=== PATIENT | male | born 1950 | race Caucasian/White ===

== ENCOUNTER → 2018-01-29 09:56 | Outpatient (CLI) | payer MEDICARE, OTHER, SELFPAY ==
--- NOTE | 2018-01-29 | DI.US.S_ITS ---
PROCEDURE: US PERIPH VENOUS LOW EXTREM LT INDICATIONS: EDEMA TECHNIQUE: Real-time imaging, as well as color and pulse Doppler interrogation, were performed of the lower extremity deep veins from the inguinal ligament to the popliteal fossa. COMPARISON: None. FINDINGS: Focal deep venous thrombosis can be seen involving the left popliteal vein, which is incompletely occlusive. No additional findings of deep venous thrombosis can be seen more proximally. IMPRESSION: Nonocclusive deep venous thrombosis involving the left popliteal vein. Note: Concordant preliminary findings given by the software program manager upon the completion of the examination to Tea Holland at 11:20 AM [place] time on January 29, 2018. Dictated by: Lasha Mckeon M.D. on 01/29/2018 at 10:33 Approved by: Lasha Mckeon M.D. on 01/29/2018 at 10:34
== END ==
PROVIDERS: Family Provider Physician Assistant; PCP Physician Assistant; Visit Provider Nurse Practitioner Gerontology
DX: I82.432 Acute embolism and thrombosis of left popliteal vein (principal)
CPT/HCPCS: 93971

== ENCOUNTER → 2018-04-18 12:28 | Outpatient (CLI) | payer MEDICARE, OTHER, SELFPAY ==
--- NOTE | 2018-04-18 12:31 | DI.RAD.S_ITS ---
PROCEDURE: FL BARIUM ENEMA INDICATIONS: history of colon cancer s/p LAR with ileostomy COMPARISON: [facility], CT, ABDOMEN/PELVIS WITH CONTRAST, 03/26/2017, 13:27. [facility], US, US PERIPH VENOUS LOW EXTREM LT, 01/29/2018, 11:19. [facility], CR, CHEST 1 VIEW, 07/24/2017, 15:43. [facility], RF, FLUORO PROCEDURE UP TO 60MINS, 05/29/2017, 11:31. [facility], CT, DRAIN RETRO OR PERITONEAL CT, 05/11/2017, 9:28. [facility], CT, ABDOMEN/PELVIS WITH CONTRAST, 05/07/2017, 8:45. [facility], RF, SINOGRAM (SINUS TRACT STUDY), 07/18/2017, 9:44. FINDINGS: KUB: Preprocedural oceanic sciences professor film demonstrates a normal bowel gas pattern. No suspicious abdominal calcifications. Visualized solid organ contours appear normal in size. No suspicious bony lesions. There are discogenic changes in bilateral hip degeneration. Colon: There is adequate opacification of the entire colon. In the region of the splenic flexure, the colon appears patent and there is free passage of Gastrografin. No evidence of perforation Surgical staple line and staple projected left upper quadrant. No strictures or extrinsic mass effects are identified. No colonic fistulae or perforations. Colon caliber appears normal. Few scattered colonic diverticula IMPRESSION: Patent colonic anastomosis Dictated by: Pool Olivier M.D. on 04/18/2018 at 13:36 Approved by: Pool Olivier M.D. on 04/18/2018 at 13:48
== END ==
PROVIDERS: PCP Physician Assistant; Visit Provider Surgery
DX: Z85.038 Personal history of other malignant neoplasm of large intestine (principal); C18.9 Malignant neoplasm of colon, unspecified
CPT/HCPCS: 74270

== ENCOUNTER 2018-04-23 06:22 | Day surgery (SDC) | payer MEDICARE, OTHER, SELFPAY ==
[2018-04-23 07:07] VITALS: BP 151/79; PULSE 87; RESP 16; TEMP 36.6; O2SAT 100; BMI 27.9
[2018-04-23] MEDS: SODIUM CHLORIDE 0.9% 1,000 ML 200 ML IV (07:38)
--- NOTE | 2018-04-23 07:45 | PM.PREOP ---
Pre-operative Note Interval Note Pre-op Check: Yes History & Physical Reviewed by Physician and Yes Exam Performed Changes: No H&P completed within 30 days and has changed as indicated here:: Patient seen and examined in the preoperative area today. History physical examination documented and on the chart from April 17, 2018 has not changed. Proceed with colonoscopy today as planned.
[2018-04-23 08:10] VITALS: BP 112/65; PULSE 78; RESP 14; TEMP 37.2; O2SAT 95
--- NOTE | 2018-04-23 08:11 | PM.OP.1 ---
Operative Date/Time/Diagnoses Date of procedure: 04/23/18 Time of procedure: 08:11 Pre-op diagnosis: Personal history of colon cancer Post-op diagnosis: same Procedure & Clinicians Procedure: Colonoscopy Same procedure as scheduled: Yes Indications: 67-year-old male with personal history of colon cancer status post resection approximately 1 year ago now completing chemotherapy. He has a diverting loop ileostomy at this time. Following completion of his therapy he was recommended undergo surveillance endoscopy prior to potential ileostomy reversal. Because of his significant comorbid medical conditions including diabetes, DVT, PE, anticoagulation therapy, and recent chemotherapy with neuropathy and opioid requirements he was recommended to undergo endoscopy with general anesthesia. Surgeon: Clint Shabazz Click Yes if Unassisted: Yes Anesthesia Type: General Operative Notes Findings: 1. Mildly inflamed rectum due to recent barium enema and enema preparation for today's procedure 2. Widely patent anastomosis without evidence of recurrent disease 3. Normal colon and rectum within the limits of enema preparation. Patient cannot undergo formal bowel preparation due to diverting ileostomy. Specimen(s): none sent Implants & Drains: None Estimated Blood Loss (mL): 2 Blood products transfused: none Procedure in detail: After obtaining informed consent the patient was brought to the operating room and left supine on the gurney. He was then positioned the left lateral decubitus and anesthesia was induced. Digital rectal examination revealed no masses or abnormalities. Colonoscope was inserted into the rectum and the bowel was insufflated with air. Under direct visualization of the colonic lumen the scope was advanced to the cecum. Copious irrigation was employed but there was moderate thick opaque stool coating the lumen and mucosa thereby limiting visualization in the right colon. However the anastomosis and left colon were clearly visualized and findings are as above. Scope was slowly withdrawn and the bowel was meticulously and circumferentially examined. There was no evidence of any residual or recurrent disease. Scope was withdrawn and the procedure terminated. Patient taken recovery in stable condition. Complications: none Condition: stable Disposition: PACU Plan for aftercare: 1. Discharge home 2. Follow up in surgery clinic next week for preoperative preparation regarding ileostomy reversal.
[2018-04-23 08:15] VITALS: BP 120/77; PULSE 84; RESP 12; TEMP 37.2; O2SAT 96
[2018-04-23 08:18] VITALS: BP 123/66; PULSE 77; RESP 14; TEMP 37.2; O2SAT 98
[2018-04-23 09:00] VITALS: BP 115/62; PULSE 69; RESP 12; TEMP 36.8; O2SAT 99
== END 2018-04-23 08:43 | disposition home or self-care (01) ==
PROVIDERS: PCP Physician Assistant; Visit Provider Surgery
PROC: 0DJD8ZZ Inspection of Lower Intestinal Tract, Via Natural or Artificial Opening Endoscopic (ICD-10-PCS; CPT 45378; principal; 2018-04-23 07:45)
DX: Z85.038 Personal history of other malignant neoplasm of large intestine (principal); Z93.2 Ileostomy status; E11.9 Type 2 diabetes mellitus without complications; G62.9 Polyneuropathy, unspecified; Z79.01 Long term (current) use of anticoagulants; Z86.718 Personal history of other venous thrombosis and embolism; Z86.711 Personal history of pulmonary embolism; Z79.4 Long term (current) use of insulin
CPT/HCPCS: G0105; J2704; J3010

== ENCOUNTER 2018-05-14 06:16 | Inpatient (IN) | payer MEDICARE, OTHER, SELFPAY ==
[2018-05-08 09:44] VITALS: BMI 28.5
[2018-05-14] VITALS (13 sets, daily range): BP systolic 131–154; BP diastolic 54–74; PULSE 70–86; RESP 10–20; TEMP 36.5–36.9; O2SAT 97–99; BMI 28.5
--- NOTE | 2018-05-14 07:10 | PC.NURSE ---
Day shift: Pt not on AC unit at this time.
[2018-05-14] MEDS: LACTATED RINGERS 1,000 ML 21 ML IV (07:31)
--- NOTE | 2018-05-14 07:37 | PM.PREOP ---
Pre-operative Note Interval Note Pre-op Check: Yes History & Physical Reviewed by Physician and Yes Exam Performed Changes: No H&P completed within 30 days and has changed as indicated here:: Patient seen and examined today in pre-op area. No changes to H&P documented on chart on 04/29/2018. Off Eliquis now. Proceed with ileostomy reversal today as planned.
[2018-05-14] MEDS: CEFOTETAN 2 GM/50 ML PIGGYBACK IV ×2 (07:50→20:42)
--- NOTE | 2018-05-14 08:41 | SUR.OPER ---
Supine on padded OR bed, head on pillow, arms secured on padded arm boards at <90 degrees abduction, legs uncrossed, safety belt at thigh, tape over blanket over lower legs.
[2018-05-14] MEDS: LACTATED RINGERS 1,000 ML 42 ML IV (10:49)
--- NOTE | 2018-05-14 11:24 | P.OP_ITS ---
Operative Date/Time/Diagnoses Date of procedure: 05/14/18 Time of procedure: 11:15 Pre-op diagnosis: Personal history of colon cancer status post colectomy with existing diverting loop ileostomy Post-op diagnosis: same Procedure & Clinicians Procedure: Laparotomy with partial small-bowel resection and primary small bowel anastomosis with primary closure of abdominal wall hernia Same procedure as scheduled: Yes Indications: 68-year-old male approximately 14 months status post low anterior resection with diverting loop ileostomy for colon cancer who presents now for episcopalian of bowel continuity. He has completed all adjuvant therapy and has no evidence of disease. The colonic anastomosis is widely patent on recent studies. He therefore was recommended to undergo reversal of his ileostomy. Surgeon: Clint Shabazz Click Yes if Unassisted: Yes Anesthesia Type: General Operative Notes Findings: 1. Peristomal hernia sac containing otherwise normal distal ileum 2. Patent loop ileostomy with normal maturation 3. Widely patent small-bowel anastomosis at the conclusion of the case Closure Type: primary Specimen(s): none sent Implants & Drains: None Applied: other (1 in gauze packing to incision) Estimated Blood Loss (mL): 50 Blood products transfused: none Procedure in detail: After obtaining informed consent the patient was brought to the operating room. Epidural catheter was placed per anesthesia. Please see their records for details. Patient was then placed supine on the table and general anesthesia was induced. SCOAP time out was performed per standard protocol. Existing loop ileostomy was closed proximally and distally with 0 Prolene suture. Abdomen was prepped and draped in usual sterile fashion. Incision was created at the mucocutaneous junction around the stoma with a 15 scalpel blade. Bovie was used to achieve hemostasis and carried the dissection to the subcutaneous tissue to the rectus fascia. Fascia was cleared of overlying tissue. Hernia sac was liberated. All adhesions were taken down sharply with Metzenbaum scissors. Great care was taken to avoid injury to the bowel. Bowel was then completely mobilized and exteriorized to the abdominal wall. Proximal and distal ileal loops were noted to be viable and healthy. The existing stoma was then excised with 2 applications of the JESUS 55 stapler proximally and distally. Mesentery was taken down between hemostats. Bowel was then discarded. Interrupted 2 0 silk ties were used to achieve hemostasis on the mesentery. Bowel loops were then brought into approximation along the anti mesenteric border taking great care not to twist the bowel. Anti mesenteric proximal and distal bowel loops were then secured to each other using seromuscular interrupted 3 0 silk suture. Corner of the staple line proximally and distally was then removed with curved Cordero's after applying bowel clamps proximally and distally. JESUS 55 stapler was then placed into the proximal distal bowel loops and approximated. Great care was taken to avoid injury to the mesentery. Stapler was fired and hemostasis was noted along the staple line. However, there was excellent mucosal bleeding and the bowel was quite pink and viable. The remaining defect was then closed in a 2 layer fashion using an inner layer of 3 0 Vicryl running [place] sutures tied in the midline. Outer layer of interrupted 3 0 silk seromuscular Lembert sutures was then applied to complete the anastomosis. All remaining staple lines were then oversewn in a similar fashion with interrupted 3 0 silk sutures as well. The crotch of the anastomotic staple line was reinforced with 3 0 silk suture as well. Mesenteric defect was closed with interrupted 3 0 silk suture. Bowel clamps removed. There was excellent patency of the anastomosis with good viability. Gas and fluid was easily milked through the anastomosis. There was no evidence of leakage. Gloves and instruments were then changed and the bowel was placed back into the abdomen. Hernia sac was excised sharply with the Bovie and discarded. Posterior and anterior fascial sheath were then identified. Posterior layer was closed with 2 individual interrupted 1 Prolene suture tied in the midline. Wound was irrigated with copious amounts of sterile saline solution and hemostasis verified. Anterior sheath was closed in a similar fashion with 2 individual interrupted 1 Prolene sutures tied in the midline. Subcutaneous tissue was again irrigated and noted to be hemostatic. Skin was loosely approximated with interrupted vertical mattress 2 0 nylon sutures. 1 in gauze packing was placed between the sutures to allow for adequate drainage. Sterile dressing was applied and anesthesia reversed in the operating room. He was extubated and taken recovery stable condition. Complications: none Condition: stable Disposition: PACU Plan for aftercare: 1. Admit to ICU per hospital protocol for epidural catheter pain management
--- NOTE | 2018-05-14 11:34 | SUR.PHASEI ---
CBG at 1106 was 128.
[2018-05-14] MEDS: LACTATED RINGERS 1,000 ML 84 ML IV (12:20)
[2018-05-14] MEDS: FENT 2MCG/BUPIV 0.125% EPI 2 MCG/100 ML PLAST..BAG 6 MCG EPIDURAL (12:24)
[2018-05-14] MEDS: HYDROMORPHONE 0.5 MG INJ IV ×2 (12:55→13:15)
[2018-05-14] MEDS: OXYCODONE/ACETAMINOPHEN 5/325 TABLET 1 TAB PO (13:33)
--- NOTE | 2018-05-14 15:21 | PC.NURSE ---
Day Shift Note Arrived to 104 at 1145 from PACU. Alert and oriented x3, oxygen sats 99% on RA. Dressing to right lower abdomen D/I with scant serosanguinous drainage at bottom. Tolerating clears without nausea. Epidural infusing at 6 ml/hr on arrival, site to mid-back C/D/I. Reported cramping pain 4/10 increasing to abdomen about 1230 - Dr. Sanchez notified and Dilaudid administered and epidural rate increased to 10 ml/hr. Patient reported minimal improvement but pain remained 3/10. Dr. Sanchez in room at 1400 and bolused with 12% Marcain. Pt tolerated well, BP stable and now denies pain. White in place and draining clear yellow urine. Belongings in room, glasses at bedside and hearing aids in. Oriented to room and to call light/bed/tv controls, call light within reach.
[2018-05-14] MEDS: FENT 2MCG/BUPIV 0.125% EPI 2 MCG/100 ML PLAST..BAG 10 MCG EPIDURAL (20:24)
[2018-05-14] MEDS: ENOXAPARIN 40 MG/0.4 ML SYRINGE SUBCUT (20:56)
[2018-05-14] MEDS: [UNRECOGNIZED DRUG - OTHER] EPIDURAL (20:57)
[2018-05-14] MEDS: FENT EPIDURAL (20:57)
[2018-05-14] MEDS: EPI EPIDURAL (20:57)
--- NOTE | 2018-05-14 21:49 | PC.NURSE ---
Addendum entered by Jennifer Montaño R.N. 05/14/18 21:59: BG at HS 72, patient A/Ox4, asymptomatic. Insulin for dinner and HS held. Eating Popsicle, recheck 75. Giving pt clear liquid snacks as requested. Original Note: Pt reported mild, tolerable pain of 2/10 in abdomen. Remains on fent/bupiv epidural at 10mls/hr. Tolerating clear liquid diet, no nausea. Received ordered Lovenox 40mg at approximately 2100, earliest epidural can be removed would be 0900 tomorrow. RA [facility]. A/Ox4.
[2018-05-15] VITALS (10 sets, daily range): BP systolic 91–137; BP diastolic 50–70; PULSE 83–100; RESP 12–18; TEMP 36.8–38.6; O2SAT 94–98
[2018-05-15] MEDS: LACTATED RINGERS 1,000 ML 84 ML IV ×2 (00:26→23:24)
[2018-05-15] MEDS: EPI EPIDURAL ×2 (05:19→15:04)
[2018-05-15] MEDS: [UNRECOGNIZED DRUG - OTHER] EPIDURAL ×2 (05:19→15:04)
[2018-05-15] MEDS: FENT EPIDURAL ×2 (05:19→15:04)
[2018-05-15] MEDS: ACETAMINOPHEN 325 MG TABLET 650 MG PO ×2 (05:20→19:59)
--- NOTE | 2018-05-15 06:25 | PC.NURSE ---
NOC Shift: POD #[address] Shabazz. Pt AOx3, appropriate and very [place]. Right lower ABD dsg CDI. BS present, pt taking clear liquieds. Denies pain w/fentanyl/Bup epidural at 10ml/hr. Affective pain control. VSS, SR/ST off tele. Spiking low grade temps through shift, cooling measures taken, tylenol po given and pt instructed to use IS, and CDB. Sao2 stable on room air. Needs encouragement to increase mobility today and pulmonary toilet.
[2018-05-15] MEDS: ONDANSETRON 4 MG/2 ML INJ IV (08:46)
--- NOTE | 2018-05-15 08:49 | PC.NURSE ---
Addendum entered by Pool Lewis R.N. 05/15/18 15:07: 1400- Pt ambulated several laps around nurses station. Assisted to sink and pt performed own oral care. Pt then stated he needed to sit on commode but was incontinent of stool prior to sitting down. Large amount of liquid brown stool with few pink streaks of mucouslike stool noted. Assisted pt with hygiene care and placed brief. Pt then ambulated back to bed with steady gait. Upon sitting down, pt stated he felt whoozy similar to earlier episode with nausea. Applied cool wash cloth to neck and provided emesis bag, although pt did not vomit. Assessed stable VS (see chart). Repositioned in bed and after a few minutes, pt denies symptoms. Call light in easy reach. Original Note: 0840- Pt placed call light on. Entered room and noted pt (sitting up in chair) to be pale, diaphoretic, and minimally responsive with rightward gaze. Mumbles with sternal rub. VS: HR 80 BP 116/60 RR 12 SPO2 96% on RA. CBG 114. Reclined pt back in chair. 0843 reassessed BP 154/92. Pt c/o nausea. Zofran given. Becoming more responsive. States that he was passing gas when he started to feel queasy and put call light on. Placed ice packs to axilae. Obtained EKG per RN protocol showing NSR. Remains up to chair and currently AO x3. Reports feeling better.
--- NOTE | 2018-05-15 11:28 | CM.DANOTE ---
Discharge Planning/Care Management Document 05/15/18 11:24 (Rec: 05/15/18 11:28 [id number]) Discharge Planning Assessment Assigned Infantry Weapons Officer LESLIE Rooney Contact Information Jcaob Forman (spouse) Advance Directives? Yes Advance Directives on File Yes History Provided By Patient Medical Record Prior Living Arrangements House Household Members spouse Independent with ADL's Yes Is patient alert and oriented? Yes Barriers to Discharge No Discharge Plan Home Transportation Arrangement Spouse to provide transportation Additional Comment Epidural in place Whiteboard Updated in Patient Room with Yes name and ext. # of Infantry Weapons Officer Comment RN reports patient continues with pain/epidural. Patient does have portacath, probably in relation to Cancer treatment(s). Review Status In Process Please Provide Date Initial DC 05/14/18 Assessment Was Performed Next Review Type Continued Stay Review Pre-Anesthesia Assessment Start: 05/08/18 09:44 Freq: Status: Complete Protocol: Document 05/08/18 09:44 CAB (Rec: 05/08/18 10:04 CAB [id number]) Pre-Anesthesia Assessment Patient Information Reviewed Via Chart Review Primary Care Provider Geneva Ramos Seen Specialist in Last 12 Months Yes Specialist Seen Merchandising Manager General surgeon Oncologist Primary Language Urdu Freight Agent Required No Height 180.34 cm Weight 92.986 kg Body Mass Index (BMI) 28.5 Hearing Ability Hard of Hearing Use of Hearing Aid Visual Assist Glasses Dentition Type Teeth, Natural Present Barriers to Learning None Hx Anesthesia Reactions No Hx Family Anesthesia Reaction No Hx Malignant Hyperthermia No Hx Blood Transfusions Yes: 2017 Hx Blood Transfusion Reaction No Anesthesia Review Requested No Measuring Machine Tender No alcohol intake current Alcohol Intake Frequency Other: Occasional Smoking Status Former smoker Tobacco type cigarettes how long ago did patient quit smoking Quit 1985 Substance Use Type marijuana History of Falling (Recent or History of No ) Patient is completely paralyzed or No completely immobile Is patient on oxygen? No Does patient have MARR/SOB No Hx Sleep Apnea No Currently Taking a Beta Deanna No Anti-Coagulant Therapy Yes: Eliquis-pt advised last dose 05/11/[address] Shabazz Has a Mangle Roller No Cardiac Testing No Hx Pacemaker/ICD No Pacemaker Rep Required? No Cardiac Clearance Received Not Applicable Urinary Catheter Present No Hx Urinary Self Catheterization No Diabetes Yes Presence of External or Internal Medical No Devices Comment Port-a-cath, ileostomy Marital Status Lives With spouse Does the Patient Have Assistance After Yes Surgery Patient Discharge Plan Description Return Home Who Can We Speak to About Patient's Care Family, friends Identifying Code for Release of Patient SHEREEN Information Health Care Proxy/Next of Kin Jacob () Health Care Proxy Emergency Contact Name Jacob () Emergency Contact Advance Directives? Yes Advance Directives on File Yes
[2018-05-15 12:46] LABS: Add Manual Diff / Slide Review NO; Basophils Percent Auto 0.5 % (0-2); Eosinophils Percent Auto 0.2 % (2-4); Hematocrit 32.7 % (41-53); Hemoglobin 11.3 g/dL (13.5-17.5); Lymphocytes Percent Auto 8.1 % (25-40); Mean Corpuscular HGB Conc 34.5 % (30-36); Mean Corpuscular Volume 95.6 fL (80-100); Monocytes Percent Auto 7.6 % (3-14); Neutrophils Absolute Auto 7800 /uL (3000-5900); Neutrophils Percent Auto 83.6 % (50-75); Platelet Count 134 X10^3/uL (150-400); Red Blood Cell Count 3.42 X10^6/uL (4.5-5.9); Red Cell Distribution Width 12.9 % (11.6-14.8); White Blood Cell Count 9.3 X10^3/uL (4.5-11.0)
[2018-05-15 12:58] LABS: BUN Creatinine Ratio 12.5 (6-22); Blood Urea Nitrogen 15 mg/dL (9-20); Calcium 8.3 mg/dL (8.4-10.2); Carbon Dioxide 27 mmol/L (22-32); Chloride 104 mmol/L (98-107); Estimated Glomerular Filt Rate > 60.0 mL/min (>60); Glucose 120 mg/dL (80-110); HEMOLYSIS < 15 (0-50); Potassium 4.4 mmol/L (3.4-5.1); Sodium 139 mmol/L (137-145)
--- NOTE | 2018-05-15 13:12 | P.PN_ITS ---
Subjective Date Patient Seen: 05/15/18 Time Patient Seen: 13:07 Interval history: Patient complained of some mild nausea but no vomiting within the last hour while he was sitting in a chair. He also became transiently unresponsive with systolic blood pressure of 91. No tachycardia. He had spiked a temperature of 101.5? at that time as well. He is now having some shaking chills but feeling better overall. He states to me currently that he has been having chills of this nature during and after chemotherapy recently. Denies significant abdominal pain or distention. He has been tolerating clear liquids by mouth without significant issue. No flatus or bowel movement. Denies chest pain or shortness of breath. Exam Vital Signs (past 8 hours): - 05/15/18 05:20 05/15/18 08:00 05/15/18 10:10 Temperature 100.2 F H 101.5 F H 98.2 F Pulse Rate 97 H Respiratory Rate 16 Blood Pressure 137/60 Pulse Oximetry 98 05/15/18 11:36 Temperature 98.2 F Pulse Rate 89 Respiratory Rate 12 Blood Pressure 91/50 L Pulse Oximetry 98 Oxygen Delivery Method Room Air Oxygen Flow Rate 0 Narrative Exam Narrative: Thin male sitting comfortably in bedside chair in no acute distress. However, he is under 1 or 2 blankets with some shivering at the time of my visit. Alert oriented x3. He overall is in good spirits. Temperature curve as above with fever of 101.5 earlier today. Current temperature 98.2?. No tachycardia. Adequate urine output Chest clear to auscultation Abdomen is soft and minimally distended. He is not tympanitic. Dressing is removed and the wound is clean, dry, and intact. Packing material remains intact as well. No purulent drainage. No erythema. No ecchymosis. He is appropriately tender to palpation and certainly without guarding or rebound. Objective Labs Result Diagrams: 05/15/18 12:27 05/15/18 12:27 Labs: Laboratory Results - last 24 hr 05/14/18 05/15/18 05/15/18 12:30 12:27 12:27 WBC 9.3 RBC 3.42 L Hgb 11.3 L Hct 32.7 L MCV 95.6 MCH 33.0 MCHC 34.5 RDW 12.9 Plt Count 134 L Neut % (Auto) 83.6 H Lymph % (Auto) 8.1 L [place] % (Auto) 7.6 Eos % (Auto) 0.2 L Baso % (Auto) 0.5 Neut # (Auto) 7800 H Sodium 139 Potassium 4.4 Chloride 104 Carbon Dioxide 27 BUN 15 Creatinine 1.20 Estimated GFR > 60.0 BUN/Creatinine Ratio 12.5 Glucose 120 H Calcium 8.3 L Nasal Screen MRSA (PCR) Negative for mrsa Assessment & Plan Plan: Assessment/Plan Narrative: 68-year-old male postoperative day 1 from ileostomy reversal now with fever and mild hypotension of unclear etiology. He has no evidence of hemorrhage in his hemoglobin is certainly adequate at 11.3. White blood cell count is normal with no shift. No evidence of sepsis or wound infection. I doubt anastomotic leak, and would be quite unusual to have manifestations of such only 24 hr after surgery. We will therefore continue his current care and await bowel function. Monitor closely. Continue epidural as this appears to be quite effective for pain control. Clear liquids only, and his blood sugar is well within acceptable ranges at this time. Ambulate at the bedside. Continue White catheter until epidural is removed. I discussed all the above with the patient in detail. Questions were answered to his satisfaction, and he voiced understanding. Orders were written. Quality VTE Deep Vein Thrombosis/Pulmonary Embolism Present on Admission: No
[2018-05-15] MEDS: INSULIN ASPART 100 UNIT/ML INSULN PEN SUBCUT (18:07)
[2018-05-15] MEDS: ENOXAPARIN 40 MG/0.4 ML SYRINGE SUBCUT (21:12)
[2018-05-16] VITALS (8 sets, daily range): BP systolic 130–171; BP diastolic 65–76; PULSE 77–90; RESP 16–20; TEMP 36.5–37.7; O2SAT 92–96
--- NOTE | 2018-05-16 00:39 | PC.NURSE ---
ned note pt denies pain. Abd with dulled sensation. Pt having flatus and liquid stool. Pt the continued fever despite aggressive incentive spirometer use, achieving 1750 ml. Tylenol given.
[2018-05-16] MEDS: OXYCODONE/ACETAMINOPHEN 5/325 TABLET 1 TAB PO ×5 (00:46→21:17)
[2018-05-16 05:12] LABS: Add Manual Diff / Slide Review NO; Basophils Percent Auto 0.4 % (0-2); Eosinophils Percent Auto 0.4 % (2-4); Hematocrit 29.5 % (41-53); Hemoglobin 10.3 g/dL (13.5-17.5); Lymphocytes Percent Auto 12.1 % (25-40); Mean Corpuscular HGB Conc 34.9 % (30-36); Mean Corpuscular Hemoglobin 33.2 PG (26-34); Mean Corpuscular Volume 94.9 fL (80-100); Monocytes Percent Auto 8.5 % (3-14); Neutrophils Absolute Auto 5900 /uL (3000-5900); Neutrophils Percent Auto 78.6 % (50-75); Platelet Count 108 X10^3/uL (150-400); Red Blood Cell Count 3.11 X10^6/uL (4.5-5.9); Red Cell Distribution Width 12.9 % (11.6-14.8); White Blood Cell Count 7.6 X10^3/uL (4.5-11.0)
[2018-05-16 05:16] LABS: BUN Creatinine Ratio 12.7 (6-22); Blood Urea Nitrogen 14 mg/dL (9-20); Calcium 8.2 mg/dL (8.4-10.2); Carbon Dioxide 26 mmol/L (22-32); Chloride 104 mmol/L (98-107); Estimated Glomerular Filt Rate > 60.0 mL/min (>60); Glucose 158 mg/dL (80-110); HEMOLYSIS < 15 (0-50); Potassium 3.8 mmol/L (3.4-5.1); Sodium 139 mmol/L (137-145)
[2018-05-16] MEDS: INSULIN ASPART 100 UNIT/ML INSULN PEN SUBCUT ×2 (09:08→12:00)
[2018-05-16] MEDS: FENT EPIDURAL (09:55)
[2018-05-16] MEDS: EPI EPIDURAL (09:55)
[2018-05-16] MEDS: [UNRECOGNIZED DRUG - OTHER] EPIDURAL (09:55)
[2018-05-16] MEDS: LACTATED RINGERS 1,000 ML 84 ML IV (10:55)
--- NOTE | 2018-05-16 11:37 | PC.NURSE ---
pt dangled at edge of bed and noted to have opsite dressing peeled above epidural insertion site- removed dressing and epidural catheter at this time- intact catheter tip noted- pt sitting up inchair working on lap top and dressing will need to be changed prior to going back to bed as it is moist with ser0-sang drainage- Dr. Shabazz here early this am and removed some wound packing and dressing changed at that time-percocet holding pt well for pain control at this time
--- NOTE | 2018-05-16 17:05 | P.PN_ITS ---
Subjective Date Patient Seen: 05/16/18 Time Patient Seen: 08:02 Interval history: Denies any further chills. Continues to have small low-grade temperature last night. No chest pain or shortness of breath. Pain otherwise in the abdomen is well controlled. He is passing flatus and a small amount of liquid stool this morning. 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 Exam Vital Signs (past 8 hours): - 05/16/18 12:17 Temperature 98.2 F Pulse Rate 90 Respiratory Rate 20 Blood Pressure 131/76 Pulse Oximetry 96 Oxygen Delivery Method Room Air Oxygen Flow Rate 0 Narrative Exam Narrative: Well-nourished well-developed male sitting comfortably in bed in no acute distress. Alert oriented x3. Sclera nonicteric Chest clear to auscultation bilaterally with regular rate and rhythm Abdomen soft and minimally distended. He is not tympanitic. Appropriately tender to palpation without guarding or rebound. Wound is clean, dry, and intact. I advanced his packing today. He tolerated this well. No erythema or ecchymosis. No purulent drainage. Extremities show no clubbing or cyanosis Objective Labs Result Diagrams: 05/16/18 04:44 05/16/18 04:44 Labs: Laboratory Results - last 24 hr 05/16/18 05/16/18 04:44 04:44 WBC 7.6 RBC 3.11 L Hgb 10.3 L Hct 29.5 L MCV 94.9 MCH 33.2 MCHC 34.9 RDW 12.9 Plt Count 108 L Neut % (Auto) 78.6 H Lymph % (Auto) 12.1 L [place] % (Auto) 8.5 Eos % (Auto) 0.4 L Baso % (Auto) 0.4 Neut # (Auto) 5900 Sodium 139 Potassium 3.8 Chloride 104 Carbon Dioxide 26 BUN 14 Creatinine 1.10 Estimated GFR > 60.0 BUN/Creatinine Ratio 12.7 Glucose 158 H Calcium 8.2 L Assessment & Plan Plan: Assessment/Plan Narrative: 68-year-old male postoperative day 2 from ileostomy reversal who is doing well. 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 I see no evidence of infection, sepsis, or other fever etiology. I have discussed his case with the anesthesiology service and we will discontinue his epidural catheter today. White catheter may be removed thereafter. Advanced to regular diet with diabetic carbohydrate restrictions. Continue to cover his glucose with sliding scale insulin. If he tolerates a diet and continues to have bowel function we will restart all of his usual home medications including anticoagulation. Transfer to floor status. Ambulate as much as possible. All questions were answered to his satisfaction, and he voiced understanding. Orders were written. Quality VTE Deep Vein Thrombosis/Pulmonary Embolism Present on Admission: No
--- NOTE | 2018-05-16 17:39 | PC.NURSE ---
Pt transferred to acute care unit. White removed. VSS. Dressing to R lower quadrant CDI. Report called to Zoraida FOLEY.
--- NOTE | 2018-05-16 18:14 | PC.NURSE ---
patient arrived up to floor acute care by 1800, administered WATCH TRAIN INSPECTOR as ordered and instructed patient on its use. Patient verbalizes understanding not to get oob without assistance. Pain is 7/10 at this time, will reassess when appropriate. Dressing to RLQ is c/d/i with very minor amount of serous drainage. Patient demonstrates ability to transfer with assistance from wheelchair to bed. urinal placed at bedside, call light in reach, BA active. will continue to monitor.
[2018-05-16] MEDS: HYDROMORPHONE PCA 6 MG/30 ML PCA.VIAL IV (21:20)
[2018-05-16] MEDS: ENOXAPARIN 40 MG/0.4 ML SYRINGE SUBCUT (21:33)
[2018-05-17] VITALS (7 sets, daily range): BP systolic 139–157; BP diastolic 73–84; PULSE 78–84; RESP 15–18; TEMP 36.6–37; O2SAT 92–97
[2018-05-17] MEDS: LACTATED RINGERS 1,000 ML 42 ML IV (02:31)
[2018-05-17] MEDS: HYDROMORPHONE PCA 6 MG/30 ML PCA.VIAL IV ×3 (05:25→21:13)
--- NOTE | 2018-05-17 08:39 | CM.DPC ---
DCP Cont: Per MD, pt having some expected bowel control issues and some fever but no infection as of yet and changed to floor status on acute care and will begin advancing pt's diet to see how he tolerates and encouraging ambulation around the hallways. Plan: SW to follow closely to determine if pt tolerates advancing diet and ambulation towards confirming if pt will be safe for d/c home with spouse when medically stable. LESLIE Garcia
[2018-05-17] MEDS: INSULIN ASPART 100 UNIT/ML INSULN PEN SUBCUT (12:41)
--- NOTE | 2018-05-17 15:34 | PC.NURSE ---
Day Shift- Pt A&OX4, MONOTYPE SETTER effective pain management, rates 3-4/10 pain to RLQ abd. Wants to attempt to get po prn pain meds, awaiting surgical rounding for today. Tolerating diet, denies nausea. OOB X2 sitting up in recliner chair and ambulated in halls X2 in AM and afternoon with steady gait and tolerating well. Ambulation around north and main nursing stations. Passing flatus and belching, no BM today.
[2018-05-17] MEDS: AMPICILLIN/SULBACTAM 3 GM 3 GM in SODIUM CHLORIDE 0.9% 100 ML IV ×2 (18:13→23:37)
--- NOTE | 2018-05-17 19:37 | PM.PNPO.1 ---
Subjective Date Patient Seen: 05/17/18 Time Patient Seen: 17:37 Interval history: Patient is post ileostomy closure. He is feeling pretty good be is having some pain. Is incompletely controlled with the present regimen. Has includes add some loose stools. Is trying to eat. Exam Vital Signs (past 8 hours): - 05/17/18 12:03 05/17/18 16:36 Temperature 98.2 F 98.6 F Pulse Rate 78 84 Respiratory Rate 16 15 Blood Pressure 153/75 H 139/73 Pulse Oximetry 95 96 Oxygen Delivery Method Room Air Oxygen Flow Rate 0 Narrative Exam Narrative: Lungs are clear good effort heart regular rate and rhythm he has a soft systolic murmur abdomen is soft little protuberant. May be little distended. Wound to the right lower quadrant actually looks pretty good. There weeks of Nu Gauze between stitches. No cellulitis. I removed the dressing and pulled the weeks of Nu Gauze out a short distance and pus began to pour from the wound. I pushed on the wound and additional pus be and a poor out. I removed the zoey in open the wound after cleaning the 2 middle sutures with Betadine. I gently opened the wound and there was a large cavity filled with purulent fluid in the base. I packed this after culturing it removing all of the fluid.rom leaking intestine. Objective Labs Result Diagrams: 05/16/18 04:44 05/16/18 04:44 Assessment & Plan Post-op Postoperative Procedures Operation Date: 05/14/18 07:45 Actual Procedures Side Surgeon p Laparotomy, Ileostomy Reversal, Peristomal Hernia repair Clint Shabazz MD Postoperative day: 3 Postoperative status narrative: Abscess at the ileostomy closure site. This is not that unusual given the contaminated nature of the wound. Will be him on antibiotics to cover GI tract valente staph and strep. I chose to use Unasyn. This will cover most of the organisms I would expect to find in this wound. It also will provide coverage for Enterococcus. Postoperative plan narrative: Broad spectrum antibiotics awaiting culture results. Quality VTE Deep Vein Thrombosis/Pulmonary Embolism Present on Admission: No
[2018-05-17] MEDS: ENOXAPARIN 40 MG/0.4 ML SYRINGE SUBCUT (21:12)
[2018-05-17] MEDS: GABAPENTIN 300 MG CAPSULE PO (21:13)
[2018-05-17] MEDS: DOCUSATE 100 MG CAPSULE PO (21:13)
--- NOTE | 2018-05-17 23:59 | PC.NURSE ---
Addendum entered by Eli Wilkins R.N. 05/18/18 06:04: Slept at intervals. Concerned about continued lack of bowel function since 05/15 and wondering if he should switch back to clear liquids. States he is still passing flatus. Offered to order clear liquids but after discussion decided to continue on current diet and discussing further with MD. Original Note: Patient is alert and oriented but very [place] without hearing aids in at night. Breath sounds CTA with RA sat of 95%. HRR. BP's trending high at 150/74 and denies history of HTN. Denies nausea. BT hypoactive; tympanic sounding in left upper quadrant. States he is passing flatus. Dressing to right abdomen is CDI. Has abraised areas to upper right of dressing along with 1 intact blister. Voiding per urinal; stands at bedside with 1 assist + walker. States he has walked in [place] with 1 assist and walker and feels weak and still unsteady on feet. 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 Currently states pain is 1/10 and describes as discomfort; is using FIRE SAFETY MANAGER as needed. Able to turn himself in bed. Wearing bilateral SCD's. Fall risk score is high and bed alarm is activated.
[2018-05-18 04:05] VITALS: BP 154/78; PULSE 82; RESP 18; TEMP 36.6; O2SAT 94
[2018-05-18] MEDS: LACTATED RINGERS 1,000 ML 42 ML IV ×2 (04:44→15:09)
[2018-05-18] MEDS: AMPICILLIN/SULBACTAM 3 GM 3 GM in SODIUM CHLORIDE 0.9% 100 ML IV ×3 (05:59→18:17)
[2018-05-18] MEDS: HYDROMORPHONE PCA 6 MG/30 ML PCA.VIAL IV ×2 (05:59→14:02)
[2018-05-18 07:15] VITALS: BP 153/77; PULSE 79; RESP 18; TEMP 36.8; O2SAT 94
[2018-05-18] MEDS: DOCUSATE 100 MG CAPSULE PO ×2 (08:40→20:46)
[2018-05-18] MEDS: INSULIN ASPART 100 UNIT/ML INSULN PEN SUBCUT ×3 (08:46→16:58)
[2018-05-18 11:06] VITALS: BP 137/74; PULSE 83; RESP 20; TEMP 36.7; O2SAT 97
--- NOTE | 2018-05-18 13:54 | CM.DPC ---
Addendum entered by LESLIE Rooney 05/18/18 15:47: [facility]: received referral, but unable to verify insurance coverage until Sunday. Original Note: Addendum entered by LESLIE Rooney 05/18/18 14:00: Patient does have port in place. Original Note: DCP/ Patient currently on broad spectrum antibiotics awaiting wound culture results. Patient may need infusion services as discharge. Patient has Medicare and [facility]. SW faxed [facility] requesting they review [facility] for possible infusion coverage. This information will assist with discharge planning needs should patient require IV abx. Plan: pending culture results. Patient's goal has been to return home but should patient require IV abx DCP will need to be reevaluated to address needs.
[2018-05-18] MEDS: GABAPENTIN 300 MG CAPSULE PO ×2 (14:05→20:46)
--- NOTE | 2018-05-18 14:55 | PC.NURSE ---
Day Shift-Pt Ambulated 2X in halls with SBA. RAILROAD CAR REPAIRMAN effective pain management. Pt okay with taking scheduled gabapentin for his abd pain management after conversation with Dr. Panchal. Abd dressing changed by Dr. Panchal this early afternoon. Coversite dressing CDI.
[2018-05-18 16:38] VITALS: BP 153/74; PULSE 78; RESP 18; TEMP 36.9; O2SAT 96
--- NOTE | 2018-05-18 16:48 | PM.PNPO.1 ---
Subjective Date Patient Seen: 05/18/18 Time Patient Seen: 12:48 Interval history: Patient doing well. Not really having bowel movements. Tolerating p.o. without nausea. Exam Vital Signs (past 8 hours): - 05/18/18 11:06 05/18/18 16:38 Temperature 98.1 F 98.5 F Pulse Rate 83 78 Respiratory Rate 20 18 Blood Pressure 137/74 153/74 H Pulse Oximetry 97 96 Oxygen Delivery Method Room Air Oxygen Flow Rate 0 Narrative Exam Narrative: Lungs are clear to auscultation. No rales or rhonchi. Good effort. Heart regular rate and rhythm without murmur gallop. Abdomen is soft nontender. The wound is clean. Minimal drainage. Objective Labs Result Diagrams: 05/16/18 04:44 05/16/18 04:44 Assessment & Plan Post-op Postoperative Procedures Operation Date: 05/14/18 07:45 Actual Procedures Side Surgeon p Laparotomy, Ileostomy Reversal, Peristomal Hernia repair Clint Shabazz MD Postoperative status narrative: Doing all right. Culture has no growth on the aerobe culture which makes me concerned I may be dealing with anaerobes in this wound. Therefore I have added Flagyl to his antibiotic regimen. Postoperative plan narrative: Will give a suppository today. Added Flagyl. Await culture results. Quality VTE Deep Vein Thrombosis/Pulmonary Embolism Present on Admission: No
[2018-05-18] MEDS: glipiZIDE 5 MG TABLET PO (16:58)
[2018-05-18] MEDS: metroNIDAZOLE 500 MG/100 ML PIGGYBACK 100 MG IV ×2 (17:05→22:39)
[2018-05-18] MEDS: BISACODYL 10 MG SUPP PR (18:18)
[2018-05-18] MEDS: OXYCODONE/ACETAMINOPHEN 5/325 TABLET 2 TAB PO (18:25)
[2018-05-18 20:23] VITALS: BP 148/71; PULSE 84; RESP 20; TEMP 37.2
[2018-05-18] MEDS: INSULIN GLARGINE 100 UNIT/ML 3ML PEN 25 UNIT SUBCUT (20:46)
[2018-05-18] MEDS: ENOXAPARIN 40 MG/0.4 ML SYRINGE SUBCUT (20:46)
[2018-05-19] VITALS: BP 157/76; PULSE 80; RESP 18; TEMP 36.8; O2SAT 96
[2018-05-19] MEDS: AMPICILLIN/SULBACTAM 3 GM 3 GM in SODIUM CHLORIDE 0.9% 100 ML IV ×5 (00:01→23:47)
[2018-05-19] MEDS: OXYCODONE/ACETAMINOPHEN 5/325 TABLET 2 TAB PO ×3 (00:11→12:56)
--- NOTE | 2018-05-19 00:32 | PC.NURSE ---
Addendum entered by Eli Wilkins R.N. 05/19/18 05:33: Patient states he slept well during night. Denies any significant pain this morning and declines need for pain meds. No further stools. Original Note: Addendum entered by Eli Wilkins R.N. 05/19/18 00:38: Dressing to right lower abdomen is CDI; abrasions to right of dressing unchanged and blister remains intact. Original Note: Patient is alert and oriented but [place] with bilateral hearing aids (removed for hs). Breath sounds CTA with RA sat of 96%. HRR but BP continues to trend high and 157/76. Denies nausea. BT present and is passing flatus. Did have loose stool on previous shift after Dulcolax suppository and now had small, < 50cc, loose watery stool. Voiding per urinal and denies dysuria, frequency or urgency; stands at bedside to void. Ambulated to/from bathroom with walker and 1 assist; denies weakness or unsteadiness. Able to turn himself in bed. States incisional pain is currently 2/10 and requesting 2 tabs of Percocet despite low severity; medicated as requested. Wearing bilateral SCD's. No change in neuropathy of bilateral LE/hands. Fall risk score is high and bed alarm is activated.
[2018-05-19] MEDS: metroNIDAZOLE 500 MG/100 ML PIGGYBACK 100 MG IV ×4 (05:11→22:27)
[2018-05-19 05:16] VITALS: BP 149/79; PULSE 75; RESP 18; TEMP 36.4; O2SAT 96
[2018-05-19 06:23] LABS: Add Manual Diff / Slide Review NO; Basophils Percent Auto 0.7 % (0-2); Eosinophils Percent Auto 3.1 % (2-4); Hematocrit 30.4 % (41-53); Hemoglobin 10.7 g/dL (13.5-17.5); Lymphocytes Percent Auto 17.6 % (25-40); Mean Corpuscular HGB Conc 35.3 % (30-36); Mean Corpuscular Hemoglobin 32.9 PG (26-34); Monocytes Percent Auto 8.1 % (3-14); Neutrophils Absolute Auto 4100 /uL (3000-5900); Neutrophils Percent Auto 70.5 % (50-75); Platelet Count 131 X10^3/uL (150-400); Red Blood Cell Count 3.27 X10^6/uL (4.5-5.9); Red Cell Distribution Width 12.8 % (11.6-14.8); White Blood Cell Count 5.8 X10^3/uL (4.5-11.0)
[2018-05-19 06:38] LABS: BUN Creatinine Ratio 14.4 (6-22); Blood Urea Nitrogen 13 mg/dL (9-20); Calcium 8.3 mg/dL (8.4-10.2); Carbon Dioxide 29 mmol/L (22-32); Chloride 103 mmol/L (98-107); Estimated Glomerular Filt Rate > 60.0 mL/min (>60); Glucose 120 mg/dL (80-110); HEMOLYSIS < 15 (0-50); Potassium 3.4 mmol/L (3.4-5.1); Sodium 140 mmol/L (137-145)
[2018-05-19 07:25] VITALS: BP 155/70; PULSE 69; RESP 18; TEMP 36.8; O2SAT 95
[2018-05-19] MEDS: DOCUSATE 100 MG CAPSULE PO ×2 (07:59→20:18)
[2018-05-19] MEDS: glipiZIDE 5 MG TABLET PO ×2 (07:59→16:47)
[2018-05-19] MEDS: GABAPENTIN 300 MG CAPSULE PO ×2 (08:59→20:18)
[2018-05-19 11:31] VITALS: BP 137/73; PULSE 81; RESP 16; TEMP 36.9; O2SAT 96
[2018-05-19] MEDS: INSULIN ASPART 100 UNIT/ML INSULN PEN SUBCUT ×2 (11:54→16:47)
--- NOTE | 2018-05-19 13:15 | PM.PNPO.1 ---
Subjective Date Patient Seen: 05/19/18 Time Patient Seen: 13:15 Interval history: The patient is a gentleman post ileostomy closure. He feels pretty good today. Wound dressing was just changed prior to my arrival. He had a shower earlier today. Had done a bowel movement. A little loose. Has some cramping occasionally. Has switched to p.o. pain medicine. Exam Vital Signs (past 8 hours): - 05/19/18 05:16 05/19/18 07:25 05/19/18 11:31 Temperature 97.5 F L 98.2 F 98.4 F Pulse Rate 75 69 81 Respiratory Rate 18 18 16 Blood Pressure 149/79 H 155/70 H 137/73 Pulse Oximetry 96 95 96 Oxygen Delivery Method Room Air Oxygen Flow Rate 0 Narrative Exam Narrative: Remains afebrile. Vital signs are normal. Sugars well controlled. Lungs are clear to auscultation without rales or rhonchi. Heart regular rate and rhythm without murmur gallop. Abdomen is a little distended but soft. No unusual tenderness. I did not take his dressing down. Objective Labs Result Diagrams: 05/19/18 06:01 05/19/18 06:01 Labs: Laboratory Results - last 24 hr 05/19/18 05/19/18 06:01 06:01 WBC 5.8 RBC 3.27 L Hgb 10.7 L Hct 30.4 L MCV 93.0 MCH 32.9 MCHC 35.3 RDW 12.8 Plt Count 131 L Neut % (Auto) 70.5 Lymph % (Auto) 17.6 L [place] % (Auto) 8.1 Eos % (Auto) 3.1 Baso % (Auto) 0.7 Neut # (Auto) 4100 Sodium 140 Potassium 3.4 Chloride 103 Carbon Dioxide 29 BUN 13 Creatinine 0.90 Estimated GFR > 60.0 BUN/Creatinine Ratio 14.4 Glucose 120 H Calcium 8.3 L Cultures consistent with Enterococcus. Final result not yet in on the anaerobic culture. Assessment & Plan Post-op Postoperative Procedures Operation Date: 05/14/18 07:45 Actual Procedures Side Surgeon p Laparotomy, Ileostomy Reversal, Peristomal Hernia repair Clint Shabazz MD Postoperative day: 5 Postoperative status: doing well Postoperative status narrative: Wound care under way. Has been on the appropriate antibiotic for the cultures thus far. Awaiting the final anaerobic culture results before stopping metronidazole. Diabetes seems to be under control suggesting that his infection is under control as well. White blood cell count is normal. Postoperative plan narrative: Continue wound care and IV antibiotics. I will stop his fluids now. That will let him be a little more mobile. Still needs IV antibiotics for his enterococcus wound infection. Quality VTE Deep Vein Thrombosis/Pulmonary Embolism Present on Admission: No
[2018-05-19 16:00] VITALS: BP 146/72; PULSE 78; RESP 18; TEMP 36.9; O2SAT 95
[2018-05-19] MEDS: OXYCODONE IR 5 MG TABLET PO ×2 (16:05→19:41)
--- NOTE | 2018-05-19 16:07 | CM.DPC ---
DCP continued: Received call from [facility]. They report that they will not be able to check on cost of IV abx until Sunday05-20-18. [facility] contact for this patient is Rene # [phone]. P: Pending. Will need to confirm whether or not patient will need IV abx and safest DCP. LESLIE Armstrong
[2018-05-19] MEDS: ACETAMINOPHEN 325 MG TABLET 650 MG PO (19:41)
[2018-05-19 20:15] VITALS: BP 146/64; PULSE 78; RESP 18; TEMP 36.7; O2SAT 93
[2018-05-19] MEDS: ENOXAPARIN 40 MG/0.4 ML SYRINGE SUBCUT (20:18)
[2018-05-19] MEDS: INSULIN GLARGINE 100 UNIT/ML 3ML PEN 25 UNIT SUBCUT (20:19)
[2018-05-20 00:35] VITALS: BP 127/73; PULSE 77; RESP 16; TEMP 36.6; O2SAT 97
[2018-05-20] MEDS: OXYCODONE IR 5 MG TABLET PO ×5 (00:38→20:59)
[2018-05-20] MEDS: SODIUM CHLORIDE 0.9% FLUSH 10 ML IV ×2 (01:42→05:18)
[2018-05-20 04:00] VITALS: BP 139/71; PULSE 74; RESP 18; TEMP 36.3; O2SAT 95
[2018-05-20] MEDS: metroNIDAZOLE 500 MG/100 ML PIGGYBACK 100 MG IV ×2 (05:17→10:10)
[2018-05-20] MEDS: SODIUM CHLORIDE 0.9% 250 ML 21 ML IV (05:18)
[2018-05-20] MEDS: AMPICILLIN/SULBACTAM 3 GM 3 GM in SODIUM CHLORIDE 0.9% 100 ML IV ×2 (06:24→11:38)
[2018-05-20 08:00] VITALS: BP 144/66; PULSE 74; RESP 16; TEMP 36.9; O2SAT 94
[2018-05-20] MEDS: glipiZIDE 5 MG TABLET PO ×2 (08:17→20:00)
[2018-05-20] MEDS: DOCUSATE 100 MG CAPSULE PO (08:18)
[2018-05-20] MEDS: GABAPENTIN 300 MG CAPSULE PO ×2 (08:18→20:01)
[2018-05-20 11:33] VITALS: BP 140/72; PULSE 75; RESP 16; TEMP 36.9; O2SAT 93
[2018-05-20] MEDS: MAGNESIUM HYDROXIDE 30 ML UDC PO (11:37)
[2018-05-20] MEDS: INSULIN ASPART 100 UNIT/ML INSULN PEN SUBCUT ×2 (11:41→17:17)
[2018-05-20] MEDS: LACTULOSE 20 GM/30 ML SOLUTION PO (12:13)
--- NOTE | 2018-05-20 12:47 | PM.PN.1 ---
Subjective Date Patient Seen: 05/20/18 Time Patient Seen: 12:47 Interval history: Pain is well controlled with oral agents. Denies any fever or chills since admission. No bowel movement the last 24 hr. Furthermore, he states that he is not passing flatus today. No nausea or vomiting however. Tolerating regular diet. Exam Vital Signs (past 8 hours): - 05/20/18 08:00 05/20/18 11:33 Temperature 98.4 F 98.4 F Pulse Rate 74 75 Respiratory Rate 16 16 Blood Pressure 144/66 H 140/72 Pulse Oximetry 94 93 Oxygen Delivery Method Room Air Oxygen Flow Rate 0 Narrative Exam Narrative: Well-nourished well-developed male in no acute distress. Alert oriented x3. Resting comfortably in the bed. Chest clear to auscultation without crackles or wheezes Abdomen is mildly more distended today than when I last saw him. He is also tympanitic. Soft and minimally tender. No guarding or rebound. Few hypoactive bowel sounds. Skin is without cellulitis or erythema. Wound has been partially opened. Packing is changed which shows good granulation along the wound edges. No purulent material. No evidence of fascial dehiscence. Extremities show no clubbing or cyanosis Objective Labs Result Diagrams: 05/19/18 06:01 05/19/18 06:01 Labs: Final wound cultures show Enterococcus faecalis which is sensitive to ampicillin. No new radiographic studies for review but laboratory studies are otherwise unremarkable today Assessment & Plan Plan: Assessment/Plan Narrative: 68-year-old male stable after ileostomy reversal but complicated by wound infection as above. He has been maintained on Unasyn which we will convert to oral Augmentin. Restart all usual home medications as well. Continue diabetic diet as tolerated. Ambulate aggressively. Assist bowel function today. I will also consult discharge planning for possible home visiting nurse regarding daily wound care. Patient and his are unable to perform this effectively. Until he has more consistent bowel function with less distention I do not believe he would be stable for discharge home. I discussed this with him, and he was agreeable. All questions were answered to his satisfaction, and he voiced understanding. Orders were written. Case discussed with the attending nurse as well as discharge coordinators. Quality VTE Deep Vein Thrombosis/Pulmonary Embolism Present on Admission: No
--- NOTE | 2018-05-20 13:15 | DIET.PN ---
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 Increased nutrient needs w/abdominal surgery for wound healing/recovery Intervention: Providing Mj BID w/meals to provide conditional AA's Arginine, glutamine. Provided education on post surgery nutrition. (Note: more ideal ONS would be [facility]; we are currently experiencing difficulty w/getting product in).
[2018-05-20 15:25] VITALS: BP 146/76; PULSE 92; RESP 15; TEMP 36.9; O2SAT 95
--- NOTE | 2018-05-20 15:27 | CM.DPC ---
DCP Cont: Per [facility], pt has 100% home infusion coverage through his insurance and requesting final med and dosing to be faxed to them when available. Per Dr. Shabazz, pt now can likely d/c home on oral meds and no IV-Abx needed at d/c although requested HH RN for wound care and signed the F2F. SW updated [facility] and they will follow until pt discharges to confirm no home infusion needed. SW met bedside with pt and attempted multiple times to wake him to provide him with HH CHoice list but pt could not be woken up. Plan: SW to follow for HH discussion with pt regarding MD recommendation of HH RN for wound care to determine HH preference and HH referral prior to d/c. LESLIE Garcia
--- NOTE | 2018-05-20 16:04 | PC.NURSE ---
Pt assisted to BR. had Bm.
--- NOTE | 2018-05-20 16:04 | PC.NURSE ---
Addendum entered by Theresa Mora R.N. 05/20/18 19:51: Pt had relatively uneventful evening. Denies any c/o. Left ramon cath intact/patent. Call light w/in reach. Bed alarm on for pt safety. Continue w/plan of care. Original Note: Assisted pt to BR w/o incidence. Abd. dsg CDI. Denies discomfort at this time. IS to 2300. Resting quietly until dinner. Call light w/in reach, bed alarm on for pt safety.
[2018-05-20] MEDS: AMOXICILLIN/CLAV 875/125 MG 1 TAB PO (20:00)
[2018-05-20] MEDS: APIXABAN 5 MG TABLET PO (20:01)
[2018-05-20] MEDS: INSULIN GLARGINE 100 UNIT/ML 3ML PEN 25 UNIT SUBCUT (20:51)
[2018-05-20 21:16] VITALS: BP 132/67; PULSE 82; RESP 16; TEMP 36.9; O2SAT 94
[2018-05-21 00:35] VITALS: BP 149/67; PULSE 79; RESP 19; TEMP 36.9; O2SAT 96
[2018-05-21] MEDS: OXYCODONE IR 5 MG TABLET PO (01:55)
--- NOTE | 2018-05-21 02:02 | PC.NURSE ---
Shift: At shift assessment, pt denied having pain but asked when his next pain pill was due. This RN stated that medication would be available in about 20 minutes at around 0100. At 0145 pt asked SUPERVISOR EDUCATION to request pain medication from this RN. This RN went to pt's room to assess for pain and pt reported a 1/10 on the pain scale. Attempted to reeducate on the pain scale, the need for narcotic pain medication, the availability of non-narcotic pain medications and found the pt to be slightly hostile stating that this RN is the only nurse hassling me and everyone gives me my medication when I ask with no questions. Pt also explained how during this hospital visit he went 4 hours without medication after my surgery and the nurses said they couldn't do anything for me and that he didn't want to be in that pain again and did this RN expect him to be in pain before I can have medication. This RN stated that the parameters of his oxycodone have a pain scale of 4-6/10 for use which is the providers order and that medication would still be provided per request but that this RN would be negligent if education as to provider's orders and proper use were not provided. Pt assured this RN that I'm not an addict. I know addicts, my sister is an addict and continued to ask why this RN was hassling me. This RN was able to reassure the pt that medication was not going to be withheld if it was an appropriate time to give it and that concerns for addiction were not priority. Pt was medicated per request and is resting comfortably at this time.
[2018-05-21 05:47] VITALS: BP 148/70; PULSE 72; RESP 19; TEMP 36.4; O2SAT 96
[2018-05-21 08:25] VITALS: BP 134/79; PULSE 79; RESP 18; TEMP 36.2; O2SAT 96
[2018-05-21] MEDS: DOCUSATE 100 MG CAPSULE PO (08:25)
[2018-05-21] MEDS: APIXABAN 5 MG TABLET PO (08:25)
[2018-05-21] MEDS: glipiZIDE 5 MG TABLET PO (08:25)
[2018-05-21] MEDS: ATORVASTATIN 10 MG TABLET PO (08:26)
[2018-05-21] MEDS: AMOXICILLIN/CLAV 875/125 MG 1 TAB PO (08:26)
[2018-05-21] MEDS: GABAPENTIN 300 MG CAPSULE PO (08:26)
--- NOTE | 2018-05-21 09:15 | CM.DANOTE ---
Addendum entered by Alize Dsouza 05/21/18 11:41: DCP/continued: Placed call to Phuong at [facility]. She reports that they have received referral and that they can plan to see patient in the home on 05-23-18. Notified Phuong that CM team would call when patient is discharged. Will provide patient with [facility] brochure as well. P: Home with [facility] when stable. LESLIE Armstrong Original Note: DCP/continued: Reviewed chart. Per notes patient will not need IV abx at time of d/c instead will need home health for wound care. YARD ENGINEER met with patient explained CM/SW role. Patient agreeable to and provided with agency choice list. Patient called his spouse and his preference in agencies is [facility]. Order and F2F obtained. Asked LAMONT/Lana to initiate referral to [facility]. P: Home with [facility] when medically stable. LESLIE Armstrong Discharge Planning/Care Management CM Discharge Assessment Start: 05/14/18 13:49 Freq: Status: Active Protocol: Document 05/14/18 13:49 KJS (Rec: 05/14/18 14:03 KJS [id number]) Discharge Planning Assessment Assigned Printed Circuit Layout Taper LESLIE Armstrong Contact Information Jacob Forman (spouse) Advance Directives? Yes Advance Directives on File Yes History Provided By Patient Medical Record Prior Living Arrangements House Household Members spouse Independent with ADL's Unclear at this time. Is patient alert and oriented? Yes: Nrsg reports patient is alert and oriented when awake. Barriers to Discharge No Discharge Plan Home Transportation Arrangement Anticipate that family will provide transport. Additional Comment Patient admitted to [facility] today for reversal of ileostomy by Dr. Shabazz. Whiteboard Updated in Patient Room with Yes name and ext. # of Printed Circuit Layout Taper Comment Briefly reviewed chart. Patient admitted today for ileostomy reversal. Patient with h/o Colon CA. Patient initially assigned to room# 218 however, epidural required therefore, went to room# 104. YARD ENGINEER placed call to assigned ICU/RN Awa to obtain update. RN reports patient continues with pain/epidural. RN in agreement to place CM department phone number on whiteboard for d/c planning purposes. RN reports from she can tell patient resides at home with spouse/Jacob and is pretty I in ADL's. Patient does have portacath, probably in relation to Cancer treatment(s ). YARD ENGINEER to attempt in-person assessment when medically appropriate to do so. Review Status In Process Please Provide Date Initial DC 05/14/18 Assessment Was Performed Next Review Type Continued Stay Review Document 05/15/18 11:24 MD (Rec: 05/15/18 11:28 [id number]) Discharge Planning Assessment Assigned Printed Circuit Layout Taper LESLIE Rooney Contact Information Jacob Forman (spouse) Advance Directives? Yes Advance Directives on File Yes History Provided By Patient Medical Record Prior Living Arrangements House Household Members spouse Independent with ADL's Yes Is patient alert and oriented? Yes Barriers to Discharge No Discharge Plan Home Transportation Arrangement Spouse to provide transportation Additional Comment Epidural in place Whiteboard Updated in Patient Room with Yes name and ext. # of Printed Circuit Layout Taper Comment RN reports patient continues with pain/epidural. Patient does have portacath, probably in relation to Cancer treatment(s). Review Status In Process Please Provide Date Initial DC 05/14/18 Assessment Was Performed Next Review Type Continued Stay Review Document 05/19/18 16:07 KJS (Rec: 05/19/18 16:11 KJS [id number]) Discharge Planning Assessment Assigned Printed Circuit Layout Taper LESLIE Rooney Contact Information aJcob Forman (spouse) Advance Directives? Yes Advance Directives on File Yes History Provided By Patient Medical Record Prior Living Arrangements House Household Members spouse Independent with ADL's Yes Is patient alert and oriented? Yes Barriers to Discharge No Discharge Plan Home Transportation Arrangement Spouse to provide transportation Additional Comment Epidural in place Whiteboard Updated in Patient Room with Yes name and ext. # of Printed Circuit Layout Taper Comment RN reports patient continues with pain/epidural. Patient does have portacath, probably in relation to Cancer treatment(s). Review Status In Process Please Provide Date Initial DC 05/14/18 Assessment Was Performed Next Review Type Continued Stay Review 05/19/18 16:07 CM Disc. Plan Continued by Alize Dsouza DCP continued: Received call from [facility] They report that they will not be able to check on cost of IV abx until Sunday05-20-18. [facility] contact for this patient is Rene # [phone]. P: Pending. Will need to confirm whether or not patient will need IV abx and safest DCP. LESLIE Armstrong Initialized on 05/19/18 16:07 - END OF NOTE Document 05/21/18 09:12 KJ (Rec: 05/21/18 09:14 KJ [id number]) Discharge Planning Assessment Assigned Printed Circuit Layout Taper LESLIE Armstrong Contact Information Jacob Forman (spouse) [phone] Advance Directives? Yes Advance Directives on File Yes History Provided By Patient Medical Record Has Patient been admitted in last 30 No days? Prior Living Arrangements House Household Members spouse Type of transporation used prior to Drives own vehicle admit Independent with ADL's Yes Is patient alert and oriented? Yes Caregiver for Another No Patient/Family Preference Home with Home Health Barriers to Discharge No Discharge Plan Home Transportation Arrangement Spouse to provide transportation Referrals Initiated Home Health Additional Comment Epidural in place If patient plan is home with home health Yes : Has signed face to face form been completed? Medicare Choice List Provided Yes Contact Name/Phone [facility] is preferred provider. Has Agency SNF been contacted Yes Whiteboard Updated in Patient Room with Yes name and ext. # of Printed Circuit Layout Taper Comment RN reports patient continues with pain/epidural. Patient does have portacath, probably in relation to Cancer treatment(s). Review Status In Process Please Provide Date Initial DC 05/21/18 Assessment Was Performed Next Review Type Continued Stay Review Document 05/21/18 09:14 KJS (Rec: 05/21/18 09:15 KJS [id number]) Discharge Planning Assessment Assigned Printed Circuit Layout Taper LESLIE Armstrong Contact Information Jacob Dasia (spouse) [phone] Advance Directives? Yes Advance Directives on File Yes History Provided By Patient Medical Record Has Patient been admitted in last 30 No days? Prior Living Arrangements House Household Members spouse Type of transporation used prior to Drives own vehicle admit Independent with ADL's Yes Is patient alert and oriented? Yes Caregiver for Another No Patient/Family Preference Home with Home Health Barriers to Discharge No Discharge Plan Home Transportation Arrangement Spouse to provide transportation Referrals Initiated Home Health Additional Comment Epidural in place If patient plan is home with home health Yes : Has signed face to face form been completed? Medicare Choice List Provided Yes Contact Name/Phone [facility] is preferred provider. Has Agency SNF been contacted Yes Whiteboard Updated in Patient Room with Yes name and ext. # of Printed Circuit Layout Taper Comment RN reports patient continues with pain/epidural. Patient does have portacath, probably in relation to Cancer treatment(s). Review Status In Process Please Provide Date Initial DC 05/21/18 Assessment Was Performed Next Review Type Continued Stay Review Pre-Anesthesia Assessment Start: 05/08/18 09:44 Freq: Status: Complete Protocol: Document 05/08/18 09:44 CAB (Rec: 05/08/18 10:04 [facility] [id number]) Pre-Anesthesia Assessment Patient Information Reviewed Via Chart Review Primary Care Provider Geneva Ramos Seen Specialist in Last 12 Months Yes Specialist Seen Proposal Consultant General surgeon Oncologist Primary Language Albanian Director Of Operations Required No Height 180.34 cm Weight 92.986 kg Body Mass Index (BMI) 28.5 Hearing Ability Hard of Hearing Use of Hearing Aid Visual Assist Glasses Dentition Type Teeth, Natural Present Barriers to Learning None Hx Anesthesia Reactions No Hx Family Anesthesia Reaction No Hx Malignant Hyperthermia No Hx Blood Transfusions Yes: 2017 Hx Blood Transfusion Reaction No Anesthesia Review Requested No Wet Pan Operator No alcohol intake current Alcohol Intake Frequency Other: Occasional Smoking Status Former smoker Tobacco type cigarettes how long ago did patient quit smoking Quit 1985 Substance Use Type marijuana History of Falling (Recent or History of No ) Patient is completely paralyzed or No completely immobile Is patient on oxygen? No Does patient have MARR/SOB No Hx Sleep Apnea No Currently Taking a Beta Deanna No Anti-Coagulant Therapy Yes: Eliquis-pt advised last dose 05/11/[address] Shabazz Has a Radio Division Lieutenant No Cardiac Testing No Hx Pacemaker/ICD No Pacemaker Rep Required? No Cardiac Clearance Received Not Applicable Urinary Catheter Present No Hx Urinary Self Catheterization No Diabetes Yes Presence of External or Internal Medical No Devices Comment Port-a-cath, ileostomy Marital Status Lives With spouse Does the Patient Have Assistance After Yes Surgery Patient Discharge Plan Description Return Home Who Can We Speak to About Patient's Care Family, friends Identifying Code for Release of Patient SHEREEN Information Health Care Proxy/Next of Kin Jacob () Health Care Proxy Emergency Contact Name Jacob () Emergency Contact Advance Directives? Yes Advance Directives on File Yes
[2018-05-21 11:35] VITALS: BP 130/72; PULSE 79; RESP 20; TEMP 36.4; O2SAT 97
[2018-05-21] MEDS: INSULIN ASPART 100 UNIT/ML INSULN PEN SUBCUT ×2 (13:05→16:33)
--- NOTE | 2018-05-21 14:29 | PC.NURSE ---
Vadim feels he is ready to go home today. He is freely ambulating in room and halls and reporting adq. pain control. He is taking a regular diet without nausea. His noon blood sugar needed coverage at 236. Vadim reports he had a BM without problems today. His wound care was done with inner packing/wet to dry drsg. changed. Wound appears clean. VSS. His portacath was de-accessed as the site was . Awaiting MD rounds.
[2018-05-21 15:15] VITALS: BP 147/76; PULSE 79; RESP 18; TEMP 36.8; O2SAT 95
--- NOTE | 2018-05-21 17:49 | P.DS_ITS ---
History of Present Illness Date Patient Seen: 05/21/18 Time Patient Seen: 17:41 Chief complaint: [id number] Narrative: 68-year-old male with admitted for ileostomy reversal following low anterior resection for colon cancer last year. Ileostomy was formed at the same procedure for diversion purposes given the low anastomosis in the colon. He has also completed adjuvant chemotherapy. He was admitted for planned ileostomy reversal. Discharge Providers Date of admission: 05/14/18 06:16 Primary care physician: Geneva Ramos PA-C Consults: 05/14/18 07:02 Consult to Discharge Planning Routine Comment: Consult to Lime Kiln And Recausticizing Operator Routine Comment: 05/20/18 11:54 Consult to Discharge Planning Routine Comment: home nurse for daily dressing change 05/21/18 09:02 Consult to Home Health Routine Comment: Reason For Exam: Home Health for wound care. Discharge provider: Clint Shabazz MD Discharge Date: 05/21/18 Summary Discharge Diagnosis: 1. Existing ileostomy with peristomal hernia 2. Ileostomy reversal with small bowel anastomosis and primary repair of peristomal hernia May 14, 2018 3. Postoperative ileus not unanticipated secondary to nature of the surgery, subsequently resolved 4. Insulin-dependent diabetes 5. Peripheral neuropathy secondary to chemotherapy 6. History of colon adenocarcinoma 7. Status post low anterior resection for colon carcinoma 8. Existing left subclavian Port-A-Cath device 9. History of pancreatic fistula, subsequent resolve 10. Status post ERCP with pancreatic stent placement, subsequently removed 11. History of Pancreatic abscess, subsequently resolved 12. Enterococcus faecalis wound infection complicating ileostomy reversal, subsequently treated 13. History of deep venous thrombosis on chronic anticoagulation 14. Hyperlipidemia Hospital Course: Patient was admitted electively for the above surgical procedures which he tolerated well. Postoperatively he was admitted to the ICU simply because he had an epidural pain catheter which was removed by postoperative day 3. White catheter was removed at that time as well. He was transferred to the regular surgical floor where he remained hemodynamically stable. He did have several small low-grade fevers within the 1st 2 days after surgery which subsequently resolved. Wound infection developed at approximately postoperative day 4 which was treated by simply open wound. He is now on daily wet-to-dry saline gauze packing changes. Home visiting nurse has been arranged to assist with care. Following removal of the epidural catheter patient was converted to KETTLE COORDINATOR then subsequently oral analgesia which is working effectively at the time of discharge. He was able to tolerate clear liquids and then a subsequent diabetic diet after resolution of his postoperative ileus. No evidence of intra-abdominal abscess or other complications. He is ambulating without difficulty. Blood sugars are controlled on his usual home regimen. He has been afebrile for several days prior to discharge. Blood pressure and heart rate have been unremarkable and otherwise normal. Wound is granulating nicely. Fascia is intact. Because of his overall stable condition he is discharged home. He will follow up next week in surgery clinic for suture removal. He understands to call or return sooner should he have any difficulties with recurrent fever, nausea, vomiting, lack of bowel function, or abnormal wound drainage. Status at Discharge Cognitive/behavioral status at discharge: Alert and oriented x3 Functional status at discharge: independent ambulation Overall status at discharge: patient is progressing back to baseline Time Spent with Patient Less than 30 minutes Exam Vital Signs (past 8 hours): - 05/21/18 11:35 05/21/18 15:15 Temperature 97.6 F 98.2 F Pulse Rate 79 79 Respiratory Rate 20 18 Blood Pressure 130/72 147/76 H Pulse Oximetry 97 95 Oxygen Delivery Method Room Air Oxygen Flow Rate 0 Narrative Exam Narrative: Well-nourished well-developed male in no acute distress. Alert oriented x3. is at the bedside at the time of my visit on May 21, 2018. Sclera nonicteric Regular rate and rhythm. No crackles or wheezes. Abdomen soft, nondistended, appropriately tender. No guarding or rebound. Wound is clean and. Packing is intact. No erythema. No ecchymosis. Extremities show no clubbing or cyanosis Objective Labs Result Diagrams: 05/19/18 06:01 05/19/18 06:01 Labs: No recent radiographic studies for review Discharge Plan Discharge Plan Patient Disposition: Home Discharge comment: Visiting home nurse as scheduled to begin May for daily dressing changes Discharge Med Rec/Prescriptions Prescriptions: New amoxicillin-pot clavulanate [Augmentin] 875-125 mg Tablet 1 tab PO BID Qty: 6 RF: 0 sennosides [senna] 8.6 mg Tablet 8.6 mg PO BEDTIME Qty: 10 RF: 0 acetaminophen 325 mg Tablet 650 mg PO Q6HR PRN (Reason: As Needed For Fever/Mild Pain) Qty: 90 RF: 0 docusate sodium 100 mg Capsule 100 mg PO BID Qty: 14 RF: 1 alum-mag hydroxide-simeth [Mag-Al Plus] 200-200-20 mg/5 mL Suspension 30 ml PO Q6HR PRN (Reason: Dyspepsia) Qty: 360 RF: 0 oxycodone 5 mg Tablet 5 mg PO Q4HR PRN (Reason: Pain, Moderate (4-6)) Qty: 30 RF: 0 Continue atorvastatin [Lipitor] 10 MG tablet 10 mg PO QDAY Qty: 0 RF: 0 insulin glargine [Basaglar KwikPen U-100 Insulin] 100 UNIT/1 ML insulin pen 20 - 25 unit SQ QPM Qty: 0 RF: 0 glipizide 5 mg Tablet 5 mg PO BID Qty: 0 RF: 0 apixaban [Eliquis] 5 mg Tablet 5 mg PO BID RF: 0 Follow up/Referrals: Clint Shabazz MD [Physician] - 05/27/18 12:00 pm (Please call office for exact appointment time if not already scheduled) Provider Discharge Instructions Diet: Carb-consistent/Diabetic Activity: No driving while taking opioid pain medication May walk as much as desired May climb stairs May ride in vehicle No heavy lifting more than 20 lb for another 3 weeks Cold/Heat Therapy: May apply ice pack to incision as needed for comfort Skin/Wound/Dressing Care Report to your healthcare provider any signs of infection, such as:: chills, fever, increased pain and unusual drainage Dressing: Change dressing at least once daily and as needed for soilage Change packing daily as directed with visiting home nurse Ghada pleitez beginning May 22, 2018 Other wound treatment: Daily wet-to-dry saline gauze dressing change as directed to incision Visit Report/Discharge Packet Instructions: DI for Colostomy or Ileostomy Reversal Discharge Data Primary Care Provider: Geneva Ramos Attending Provider: Clint Shabazz Admit Date/Time: 05/14/18 06:16 Quality VTE Deep Vein Thrombosis/Pulmonary Embolism Present on Admission: No
== END 2018-05-21 18:32 | disposition home health service (06) | DRG 330 ==
LOC: AC 08:27 → ICU 08:57 → AC 05-16 17:47
PROVIDERS: Specialist; Admitting Provider Surgery; PCP Physician Assistant; Visit Provider Surgery
PROC: 0DBB0ZZ Excision of Ileum, Open Approach (ICD-10-PCS; CPT 44620; principal; 2018-05-14 07:45)
DX: Z43.2 Encounter for attention to ileostomy (principal); K94.13 Enterostomy malfunction; T81.42XA Infection following a procedure, deep incisional surgical site, initial encounter; L02.211 Cutaneous abscess of abdominal wall; Z85.038 Personal history of other malignant neoplasm of large intestine; Z87.891 Personal history of nicotine dependence; I10 Essential (primary) hypertension; E11.9 Type 2 diabetes mellitus without complications; E78.5 Hyperlipidemia, unspecified; Z86.718 Personal history of other venous thrombosis and embolism; Z79.01 Long term (current) use of anticoagulants; I95.9 Hypotension, unspecified; Z79.4 Long term (current) use of insulin; G62.2 Polyneuropathy due to other toxic agents; T45.1X5S Adverse effect of antineoplastic and immunosuppressive drugs, sequela; B95.2 Enterococcus as the cause of diseases classified elsewhere
CPT/HCPCS: 36415; 36591; 36592; 44625; 80048; 82962; 85025; 86850; 86900; 86901; 87070; 87075; 87077; 87186; 87205; 87797; 93005; 96523; J0295; J1170; J1642; J1650; J2250; J2405; J2704; J3010

== ENCOUNTER → 2018-07-05 10:54 | Outpatient (CLI) | payer MEDICARE, OTHER, SELFPAY ==
[2018-05-14 11:50] VITALS: BMI 28.5
[2018-07-05 11:23] LABS: Add Manual Diff / Slide Review NO; Basophils Percent Auto 0.9 % (0-2); Eosinophils Percent Auto 0.9 % (2-4); Hematocrit 38.8 % (41-53); Hemoglobin 12.9 g/dL (13.5-17.5); Lymphocytes Percent Auto 22.4 % (25-40); Mean Corpuscular HGB Conc 33.2 % (30-36); Mean Corpuscular Hemoglobin 30.4 PG (26-34); Mean Corpuscular Volume 91.5 fL (80-100); Monocytes Percent Auto 7.3 % (3-14); Neutrophils Absolute Auto 4100 /uL (1500-7000); Neutrophils Percent Auto 68.5 % (50-75); Platelet Count 176 X10^3/uL (150-400); Red Blood Cell Count 4.24 X10^6/uL (4.5-5.9)
[2018-07-05 11:41] LABS: Alanine Aminotransferase 36 IU/L (21-72); Albumin 4.5 g/dL (3.5-5.0); Albumin Globulin Ratio 1.6 (1.0-2.8); Alkaline Phosphatase 64 U/L (38-126); Aspartate Aminotransferase 22 IU/L (17-59); BUN Creatinine Ratio 18.2 (6-22); Bilirubin Total 0.3 mg/dL (0.2-1.3); Blood Urea Nitrogen 20 mg/dL (9-20); Calcium 9.3 mg/dL (8.4-10.2); Carbon Dioxide 25 mmol/L (22-32); Chloride 105 mmol/L (98-107); Estimated Glomerular Filt Rate > 60.0 mL/min (>60); Globulin 2.8 g/dL (1.7-4.1); Glucose 211 mg/dL (80-110); HEMOLYSIS < 15 (0-50); Potassium 4.4 mmol/L (3.4-5.1); Sodium 140 mmol/L (137-145); Total Protein 7.3 g/dL (6.3-8.2)
[2018-07-05 12:12] LABS: Carcinoembryonic Antigen 1.7 ng/mL (0.1-3.0)
== END ==
PROVIDERS: PCP Physician Assistant
DX: C18.7 Malignant neoplasm of sigmoid colon (principal)
CPT/HCPCS: 36415; 80053; 82378; 85025

== ENCOUNTER → 2018-10-09 08:18 | Outpatient (CLI) | payer MEDICARE, OTHER, SELFPAY ==
[2018-05-14 11:50] VITALS: BMI 28.5
--- NOTE | 2018-10-09 08:46 | DI.CT.S_ITS ---
PROCEDURE: CT CHEST ABD PEL W CON INDICATIONS: surveillance TECHNIQUE: After the administration of oral and intravenous contrast, 5 mm thick sections acquired from the lung apices to the symphysis. 5 mm coronal and sagittal reformats were performed, with additional 7 mm coronal MIP reformats through the lungs. For radiation dose reduction, the following was used: automated exposure control, adjustment of mA and/or kV according to patient size. COMPARISON: [facility], CT, ABDOMEN/PELVIS WITH CONTRAST, 03/26/2017, 13:27. [facility], CT, THORAX WITH CONTRAST, 03/07/2017, 7:49. [facility], CT, ABDOMEN/PELVIS WITH CONTRAST, 05/07/2017, 8:45. FINDINGS: Image quality: Excellent. CHEST: Lungs and pleura: No acute airspace opacities. No pleural effusions or pneumothorax. Central and peripheral airways appear patent and normal in caliber. Mediastinum: Heart size is normal. No pericardial effusion. No mediastinal or hilar adenopathy by size criteria. Thoracic aorta and central pulmonary arteries are normal in size. Esophagus is normal in caliber. No hiatal hernia. Chest wall: No axillary or supraclavicular adenopathy by size criteria. Thyroid gland appears normal where well seen. ABDOMEN: Solid organs: Liver is normal in size and enhancement. Gallbladder appears normal. Biliary system is non dilated. Pancreas enhances normally. Spleen is normal in size and enhancement. No adrenal nodules. Kidneys demonstrate normal size and enhancement, without hydronephrosis. Scattered bilateral renal cortical cysts are present, the largest of which is located projecting anteriorly from the left kidney, measuring up to 8.9 cm. Peritoneum and bowel: Bowel loops demonstrate normal wall thickness and caliber. No free fluid or air. Nodes and vessels: No retroperitoneal or mesenteric adenopathy by size criteria. Aorta and inferior vena cava are normal in size. Miscellaneous: No ventral hernias. PELVIS: Genitourinary: Bladder wall thickness is normal. Miscellaneous: No inguinal hernias or adenopathy. Pelvic anastomotic staple line at the low rectal area, presumably the site of prior malignancy resection. No recurrent mass lesion in this area is found. Bones: No suspicious bony lesions. No vertebral body compression fractures. IMPRESSION: No evidence of recurrent neoplasm at the operative bed or development of metastatic disease. Stable appearing renal cortical cysts, the largest of which measures up to 8.9 cm anterior in position at the left renal cortex. This has been previously documented. Dictated by: Nadir Gr M.D. on 10/09/2018 at 11:47 Approved by: Nadir Gr M.D. on 10/09/2018 at 11:50
== END ==
PROVIDERS: PCP Physician Assistant
DX: C18.9 Malignant neoplasm of colon, unspecified (principal); N28.1 Cyst of kidney, acquired
CPT/HCPCS: 71260; 74177; Q9967

== ENCOUNTER 2018-11-07 06:14 | Day surgery (SDC) | payer MEDICARE, OTHER, SELFPAY ==
[2018-05-14 11:50] VITALS: BMI 28.5
[2018-10-22 07:54] VITALS: BMI 30.9
[2018-11-07 06:48] VITALS: BP 137/63; PULSE 67; RESP 16; TEMP 36.2; O2SAT 99
[2018-11-07] MEDS: LACTATED RINGERS 1,000 ML 42 ML IV (07:00)
--- NOTE | 2018-11-07 07:39 | PM.HP.1 ---
History of Present Illness Date Patient Seen: 11/07/18 Time Patient Seen: 07:39 Chief complaint: [id number] Narrative: The patient is a gentleman here for removal Port-A-Cath. He finished his chemotherapy for colon cancer in March. Patient History Medical History Adenocarcinoma of descending colon (Acute) Chemotherapy-induced neuropathy (Acute) Deep venous thrombosis (Acute ~2017) Delayed wound healing (Acute) Diabetes (Acute) Diverticulosis (Acute) Early cataracts, bilateral (Acute) Essential tremor (Acute) History of cystogram (Acute) History of malignant melanoma of skin (Acute) History of tobacco abuse (Acute) Hyperlipidemia (Acute) Hypertension (Acute) Ileostomy in place (Acute ~03/2017) Insulin dependent diabetes mellitus (Acute) Kidney disease (Acute ~1964) Melanoma in situ of cheek (Acute) Neuropathic pain (Acute) Pancreatic abscess (Acute) Pancreatic fistula (Acute) Parastomal hernia (Acute) Port-A-Cath in place (Acute 07/24/17) Protein-calorie malnutrition, moderate (Resolved) Surgical History Status post reversal of ileostomy (Acute) H/O melanoma excision (Acute) History of ERCP (Acute) History of colonoscopy (Acute) History of low anterior resection of rectum (Acute 03/13/17) Family History Sister Gallstones Cancer Father Diabetes mellitus Social History household members: spouse Smoking Status: Former smoker alcohol intake: current Family & Social History Family History Sister Gallstones Cancer Father Diabetes mellitus Social History: household members spouse Tobacco & Substance use: Tobacco type cigarettes Smoking Status Former smoker alcohol intake current alcohol intake frequency 0-2 drinks per day Substance Use Type marijuana Meds Home Medications Medication Instructions Recorded Confirmed Type atorvastatin [Lipitor] 20 mg PO QPM #0 01/29/17 11/07/18 History Basaglar KwikPen U-100 Insulin 20 - 25 unit SQ QPM #0 05/01/17 11/07/18 History glipizide 5 mg PO BID #0 12/04/17 11/07/18 History Eliquis 5 mg PO BID 03/12/18 11/07/18 History acetaminophen 650 mg PO Q6HR PRN #90 tab 05/21/18 10/22/18 Rx oxycodone 5 mg PO Q4HR PRN #30 tab 05/21/18 10/22/18 Rx olmesartan 5 mg PO DAILY 11/07/18 11/07/18 History Allergies Allergy/AdvReac Type Severity Reaction Status Date / Time No Known Drug Allergies Allergy Verified 11/07/18 06:39 Review of Systems Review of Systems No recent chest pain breathing issues black or bloody bowel movements. No seizures. Exam Vital Signs (past 8 hours): - 11/07/18 06:48 Temperature 97.1 F L Pulse Rate 67 Respiratory Rate 16 Blood Pressure 137/63 Pulse Oximetry 99 Oxygen Delivery Method Room Air Narrative Exam Narrative: Alert and oriented. Lungs are clear to auscultation no rales or rhonchi heart regular rate and rhythm without murmur gallop. The patient's chest wall is free of lesions the port is on the left. Assessment & Plan Assessment & Plan narrative: Patient for Port-A-Cath removal. I have discussed the procedure including risks of bleeding infection. He should expect a divot. All questions answered.
--- NOTE | 2018-11-07 07:42 | PM.PREOP ---
Pre-operative Note Interval Note History & Physical reviewed/Exam performed by Physician: Yes Changes to H&P: No
[2018-11-07] MEDS: CEFAZOLIN 2 GM/100 ML FROZ.PIGGY IV (07:45)
--- NOTE | 2018-11-07 07:59 | SUR.OPER ---
Supine on padded OR bed, head on pillow, arms secured on padded arm boards at <90 degrees abduction, legs uncrossed, safety belt at thigh, tape over blanket over lower legs.
[2018-11-07] MEDS: BUPIVACAINE 0.5% (PF) VIAL 30 ML INJ (08:05)
--- NOTE | 2018-11-07 08:13 | SUR.OPER ---
GLASSES TO PACU WITH PATIENT-LABELED
[2018-11-07 08:33] VITALS: BP 139/70; PULSE 64; RESP 12; TEMP 36.5; O2SAT 98
--- NOTE | 2018-11-07 08:37 | PM.OP.1 ---
Operative Date/Time/Diagnoses Date of procedure: 11/07/18 Time of procedure: 08:37 Pre-op diagnosis: History of colon cancer Post-op diagnosis: same Procedure & Clinicians Procedure: Removal Port-A-Cath Same procedure as scheduled: Yes Indications: no longer need a Port-A-Cath Surgeon: Baljinder Panchal Click Yes if Unassisted: Yes Anesthesia Type: General Operative Notes Findings: Port removed without difficulty Closure Type: primary Specimen(s): none sent Estimated Blood Loss (mL): 5 Blood products transfused: none Procedure in detail: The patient was placed supine on the operating room table and underwent general LMA anesthesia. He was prepped and draped in usual fashion. Local anesthetic was infiltrated a field block fashion around the port. Transverse incision was made in the old scar and carried down to level the port. The port was dissected from surrounding structures. The tunnel into which the catheter went had a U-stitch of 3 0 Vicryl placed. The catheter was pulled out and the stitch tied down to close the tunnel. The port and its holding stitches were removed. The subcu was closed with interrupted 3 0 Vicryl. The skin was closed a running 4 Vicryl subcuticular stitch and Steri-Strips. Dressing was applied the patient was taken recovery area in good condition. Complications: none Condition: stable Disposition: PACU
[2018-11-07 08:38] VITALS: BP 133/68; PULSE 62; RESP 12; O2SAT 98
--- NOTE | 2018-11-07 08:40 | P.OP_ITS ---
Operative Date/Time/Diagnoses Date of procedure: 11/07/18 Time of procedure: 08:37 Pre-op diagnosis: History of colon cancer Post-op diagnosis: same Procedure & Clinicians Procedure: Removal Port-A-Cath Same procedure as scheduled: Yes Indications: no longer need a Port-A-Cath Surgeon: Baljinder Panchal Click Yes if Unassisted: Yes Anesthesia Type: General Operative Notes Findings: Port removed without difficulty Closure Type: primary Specimen(s): none sent Estimated Blood Loss (mL): 5 Blood products transfused: none Procedure in detail: The patient was placed supine on the operating room table and underwent general LMA anesthesia. He was prepped and draped in usual fashion. Local anesthetic was infiltrated a field block fashion around the port. Transverse incision was made in the old scar and carried down to level the port. The port was dissected from surrounding structures. The tunnel into which the catheter went had a U-stitch of 3 0 Vicryl placed. The catheter was pulled out and the stitch tied down to close the tunnel. The port and its holding stitches were removed. The subcu was closed with interrupted 3 0 Vicryl. The skin was closed a running 4 Vicryl subcuticular stitch and Steri- Strips. Dressing was applied the patient was taken recovery area in good condition. Complications: none Condition: stable Disposition: PACU
[2018-11-07 08:43] VITALS: BP 131/68; PULSE 59; RESP 12; O2SAT 100
[2018-11-07 08:48] VITALS: BP 132/68; PULSE 64; RESP 14; TEMP 36.7; O2SAT 97
[2018-11-07 09:22] VITALS: BP 148/72; PULSE 58; RESP 15; TEMP 36.7; O2SAT 99
== END 2018-11-07 09:31 | disposition home or self-care (01) ==
PROVIDERS: PCP Physician Assistant; Visit Provider Specialist
PROC: (CPT 36590; principal; 2018-11-07 07:45)
DX: Z45.2 Encounter for adjustment and management of vascular access device (principal); Z85.038 Personal history of other malignant neoplasm of large intestine; E11.9 Type 2 diabetes mellitus without complications; Z79.4 Long term (current) use of insulin
CPT/HCPCS: 36590; J0690; J2405; J2704

== ENCOUNTER 2018-12-05 11:44 | Day surgery (SDC) | payer MEDICARE, OTHER, SELFPAY ==
[2018-05-14 11:50] VITALS: BMI 28.5
--- NOTE | 2018-12-05 | PATH_ITS ---
[facility] Accession Number: [id number] . 01 Material submitted: . PART A: colon - LEFT COLON BIOPSY PART B: rectum - RECTAL POLYP . 02 Diagnosis: A. Left Colon, Biopsy: Colonic mucosa with no diagnostic abnormality. Negative for active, chronic and microscopic colitis. Negative for dysplasia and malignancy. . B. Rectum, Polyp, Biopsy: Tubulovillous adenoma. No evidence of malignancy or high-grade dysplasia. MRV/12/06/2018 . 02 Electronically signed: . Inna Coyle MD, Pathologist NPI- [id number] . 01 Gross description: . Part A: LEFT COLON BIOPSY: Received in formalin are 2 fragment(s) of shepard, soft tissue measuring 0.2 x 0.2 x 0.1 cm to 0.4 x 0.2 x 0.2 cm which is entirely submitted and submitted entirely in 1 cassette(s) Part B: RECTAL POLYP: Received in formalin is 1 fragment(s) of shepard, soft tissue measuring 0.3 x 0.3 x 0.3 cm which is entirely submitted and submitted entirely in 1 cassette(s) /DMC /[facility] . 02 Pathologist provided ICD-10: D12.8 . 02 CPT . 941245, [id number] Performed at: 01 [facility] [address], [place], [place] [id number] MD Sly Wright MD Phone: [phone] Performed at: 02 [facility] [address] , [place], [place] [id number] MD Inna Coyle MD Phone: [phone]
--- NOTE | 2018-12-05 11:59 | PM.HP.1 ---
History of Present Illness Date Patient Seen: 12/05/18 Time Patient Seen: 12:09 Chief complaint: 11142 Narrative: 68yo M 2 years out of stage IIIB CRC s/p resection. Had an ileostomy with subsequent reversal. No GI issues. No evidence of recurrence on last checks in September. Here today for surveillance colonoscopy. Was on apaxiban for a DVT but has been off for a month. Patient History Medical History Adenocarcinoma of descending colon (Acute) Chemotherapy-induced neuropathy (Acute) Deep venous thrombosis (Acute ~2017) Early cataracts, bilateral (Acute) Essential tremor (Acute) History of cystogram (Acute) History of tobacco abuse (Acute) Insulin dependent diabetes mellitus (Acute) Kidney disease (Acute ~1964) Neuropathic pain (Acute) Diabetes (Chronic) Diverticulosis (Chronic) Hyperlipidemia (Chronic) Hypertension (Chronic) History of malignant melanoma of skin (Resolved) Ileostomy in place (Resolved ~03/2017) Melanoma in situ of cheek (Resolved) Pancreatic abscess (Resolved) Pancreatic fistula (Resolved) Parastomal hernia (Resolved) Port-A-Cath in place (Resolved 07/24/17) Protein-calorie malnutrition, moderate (Resolved) Surgical History H/O melanoma excision (Resolved) History of colonoscopy (Resolved) History of low anterior resection of rectum (Resolved 03/13/17) Status post reversal of ileostomy (Resolved) History of ERCP (Inactive) Family History Sister Gallstones Cancer Father Diabetes mellitus Social History household members: spouse Smoking Status: Former smoker alcohol intake: current Family & Social History Family History Sister Gallstones Cancer Father Diabetes mellitus Social History: household members spouse Tobacco & Substance use: Tobacco type cigarettes Smoking Status Former smoker alcohol intake current alcohol intake frequency 0-2 drinks per day Substance Use Type marijuana Meds Home Medications Medication Instructions Recorded Confirmed Type atorvastatin [Lipitor] 20 mg PO QPM #0 01/29/17 11/07/18 History Basaglar KwikPen U-100 Insulin 20 - 25 unit SQ QPM #0 05/01/17 11/07/18 History glipizide 5 mg PO BID #0 12/04/17 11/07/18 History Eliquis 5 mg PO BID 03/12/18 11/07/18 History acetaminophen 650 mg PO Q6HR PRN #90 tab 05/21/18 10/22/18 Rx oxycodone 5 mg PO Q4HR PRN #30 tab 05/21/18 10/22/18 Rx olmesartan 5 mg PO DAILY 11/07/18 11/07/18 History Allergies Allergy/AdvReac Type Severity Reaction Status Date / Time No Known Drug Allergies Allergy Verified 11/07/18 06:39 Review of Systems Constitutional Constitutional: Reports as per HPI Exam Vital Signs (past 8 hours): AAO, NAD, female of healthy weight EOMI, MMM, no scleral icterus unlabored RA soft, nt/nd MAEW visible skin dry and intact Assessment & Plan Assessment & Plan narrative: - surveillance colonoscopy for CRC history --> all R/B/A discussed and pt wishes to proceed
[2018-12-05 12:02] VITALS: BP 134/74; PULSE 87; RESP 16; TEMP 36.8; O2SAT 100
[2018-12-05] MEDS: SODIUM CHLORIDE 0.9% 1,000 ML 200 ML IV (12:23)
--- NOTE | 2018-12-05 12:35 | P.OP.ENDO_ITS ---
Operative Date/Time/Diagnoses Date of procedure: 12/05/18 Time of procedure: 13:32 Pre-op diagnosis: History of CRC s/p LAR Post-op diagnosis: same Procedure & Clinicians Study performed: Surveillance Colonoscopy Same procedure as scheduled: Yes Indications: 68yo M with a recent history of CRC for which he underwent an LAR with ileostomy placement which was subsequently taken down. His follow up screenings thus far have been unremarkable. Here for first surveillance colonoscopy since initial find of cancer two years ago. Surgeon: Olesya Cheng Procedure Notes SCOAP/Timeout: 1253 Procedure in detail: After obtaining informed consent, the patient was brought to the GI suite and placed in the left lateral decubitus position on the examination table. After placement of appropriate monitors, the patient was g iven incremental doses of Versed and Fentanyl until an appropriate level of sedation was achieved. A time out was held per SCOAP protocol. A digital rectal examination was performed and did not reveal any masses or obstructing lesions. The colonoscope was gently passed into the patient's anus and the entire colon navigated to the level of the cecum with minimal difficulty. Prep was adequate. Once in the cecum, the scope was slowly withdrawn being sure to go before and beyond all mucosal folds and prominences as able to get a thorough examination. A tiny rectal polyp was found and removed with cold forceps for biopsy. Other findings include a left colon ridge with a small area of heaped up excess tissue, no polypoid formation, biopsied with cold forceps. The anastomosis was noted to be healthy and fully patent. At the level of the rectal vault, the scope was retroflexed and the internal anal canal was examined. The scope was straightened and air aspirated from the colon. The instrument was removed from the patient's body and the procedure was concluded. The patient was allowed to awaken from sedation without difficulty and taken to the post-anesthesia care unit in good condition. Scope withdrawal time: 12 min Sedation minutes: 20 Findings: polyp (rectal polyp- 1mm, hyperplastic in appearance ) and other findings (small area of heaped tissue on a fold in left colon, biopsied ) Specimen(s): other (1. left colon biopsy- excess tissue, not true polyp 2. rectal polyp ) Complications: none Impression: 1. s/p sigmoid resection for colon cancer; anastomosis healthy and intact 2. left colon with small (0.5cm) area of heaped up tissue, no true polyp 3. rectal polyp, 1mm, hyperplastic in appearance Follow up: weeks Disposition: PACU
[2018-12-05] MEDS: MIDAZOLAM 5 MG/5 ML VIAL IV (13:03)
[2018-12-05] MEDS: fentaNYL 250 MCG/5 ML INJ IV (13:04)
[2018-12-05 13:28] VITALS: BP 120/75; PULSE 78; RESP 16; TEMP 36.9; O2SAT 98
[2018-12-05 13:51] VITALS: BP 118/77; PULSE 77; RESP 19; TEMP 36.6; O2SAT 99
== END 2018-12-05 13:53 | disposition home or self-care (01) ==
PROVIDERS: Visit Provider Surgery
PROC: 0DJD8ZZ Inspection of Lower Intestinal Tract, Via Natural or Artificial Opening Endoscopic (ICD-10-PCS; CPT 45378; principal; 2018-12-05 13:00)
DX: Z85.038 Personal history of other malignant neoplasm of large intestine (principal); Z90.49 Acquired absence of other specified parts of digestive tract; E11.9 Type 2 diabetes mellitus without complications; Z79.4 Long term (current) use of insulin; I10 Essential (primary) hypertension; D12.8 Benign neoplasm of rectum
CPT/HCPCS: 45380; 88305; 99152; J2250; J3010

== ENCOUNTER → 2019-02-11 08:14 | Outpatient (CLI) | payer MEDICARE, OTHER, SELFPAY ==
[2018-05-14 11:50] VITALS: BMI 28.5
--- NOTE | 2019-02-11 | DI.US.S_ITS ---
PROCEDURE: US ABD AORTA ANEURYSM SCREEN INDICATIONS: AAA SCREENING, HISTORY OF SMOKING TECHNIQUE: Real time scanning was performed of the aorta and iliac arteries, with image documentation. COMPARISON: None. FINDINGS: Aorta: Proximal aortic diameter measures 2.7 cm. Mid-aorta measures 2.3 cm. Distal aortic diameter is 1.9 cm. Iliac arteries: Right common iliac artery measures 1.5 cm. Left common iliac artery measures 1.5 cm. IMPRESSION: Negative for aneurysm. Dictated by: Lasha Mckeon M.D. on 02/11/2019 at 8:05 Approved by: Lasha Mckeon M.D. on 02/11/2019 at 8:06
== END ==
PROVIDERS: PCP Student in an Organized Health Care Education/Training Program; Visit Provider Student in an Organized Health Care Education/Training Program
DX: Z13.6 Encounter for screening for cardiovascular disorders (principal); Z87.891 Personal history of nicotine dependence
CPT/HCPCS: 76706

== ENCOUNTER → 2019-03-31 13:35 | Outpatient (CLI) | payer MEDICARE, OTHER, SELFPAY ==
[2018-05-14 11:50] VITALS: BMI 28.5
[2019-03-31 14:44] LABS: Add Manual Diff / Slide Review NO; Basophils Absolute Auto 0 /uL (0-100); Basophils Percent Auto 0.7 % (0-2); Eosinophils Absolute Auto 100 /uL (0-450); Hematocrit 36.4 % (41-53); Hemoglobin 12.4 g/dL (13.5-17.5); Lymphocytes Absolute Auto 1400 /uL (1100-4500); Lymphocytes Percent Auto 19.6 % (25-40); Mean Corpuscular HGB Conc 34.2 % (30-36); Mean Corpuscular Hemoglobin 30.1 PG (26-34); Mean Corpuscular Volume 88.2 fL (80-100); Monocytes Absolute Auto 400 /uL (0-900); Monocytes Percent Auto 5.8 % (3-14); Neutrophils Absolute Auto 5300 /uL (1500-7000); Neutrophils Percent Auto 72.9 % (50-75); Platelet Count 200 X10^3/uL (150-400); Red Blood Cell Count 4.12 X10^6/uL (4.5-5.9); Red Cell Distribution Width 12.9 % (11.6-14.8); White Blood Cell Count 7.3 X10^3/uL (4.5-11.0)
[2019-03-31 14:56] LABS: Alanine Aminotransferase 36 IU/L (21-72); Albumin 4.5 g/dL (3.5-5.0); Albumin Globulin Ratio 1.5 (1.0-2.8); Alkaline Phosphatase 77 U/L (38-126); Aspartate Aminotransferase 22 IU/L (17-59); BUN Creatinine Ratio 21.8 (6-22); Bilirubin Total 0.4 mg/dL (0.2-1.3); Blood Urea Nitrogen 24 mg/dL (9-20); Calcium 9.8 mg/dL (8.4-10.2); Carbon Dioxide 26 mmol/L (22-32); Chloride 104 mmol/L (98-107); Estimated Glomerular Filt Rate > 60.0 mL/min (>60); Glucose 228 mg/dL (80-110); HEMOLYSIS < 15 (0-50); Potassium 4.8 mmol/L (3.4-5.1); Sodium 140 mmol/L (137-145); Total Protein 7.5 g/dL (6.3-8.2)
[2019-03-31 15:26] LABS: Carcinoembryonic Antigen 5.4 ng/mL (0.1-3.0)
== END ==
PROVIDERS: PCP Student in an Organized Health Care Education/Training Program
DX: C18.9 Malignant neoplasm of colon, unspecified (principal)
CPT/HCPCS: 36415; 80053; 82378; 85025

== ENCOUNTER → 2019-04-09 13:29 | Outpatient (CLI) | payer MEDICARE, OTHER, SELFPAY ==
[2018-05-14 11:50] VITALS: BMI 28.5
--- NOTE | 2019-04-09 14:17 | DI.CT.S_ITS ---
PROCEDURE: CT CHEST ABD PEL W CON INDICATIONS: h/o colon cancer, rising cea TECHNIQUE: After the administration of oral and intravenous contrast, 5 mm thick sections acquired from the lung apices to the symphysis. 5 mm coronal and sagittal reformats were performed, with additional 7 mm coronal MIP reformats through the lungs. For radiation dose reduction, the following was used: automated exposure control, adjustment of mA and/or kV according to patient size. COMPARISON: [facility], CT, ABDOMEN/PELVIS WITH CONTRAST, 05/07/2017, 8:45. [facility], CT, CT CHEST ABD PEL W CON, 10/09/2018, 10:10. FINDINGS: Image quality: Excellent. CHEST: Lungs and pleura: No acute consolidation. No pleural effusions or pneumothorax. Central and peripheral airways appear patent and normal in caliber. Minimal unchanged scarring left sulcus. Unchanged nodular focus measuring 6 mm seen in the right sulcus Mediastinum: Heart size is normal. Coronary artery calcifications are present. No pericardial effusion. No mediastinal or hilar adenopathy by size criteria. Thoracic aorta and central pulmonary arteries are normal in size. Esophagus is normal in caliber. No hiatal hernia. Chest wall: No axillary or supraclavicular adenopathy by size criteria. Thyroid gland unremarkable. ABDOMEN: Solid organs: Modified steatosis Gallbladder unremarkable. Biliary system is non-dilated. Pancreas is heterogeneous, with a 5 mm cystic lesion of the body, unchanged. There is also increasing chronic calcification of the pancreatic body/head Diffuse pancreatic atrophy. Prominence of the main pancreatic duct. 7 mm cystic lesion seen in the uncinate process region on image 69 series 2 Spleen is normal in size and enhancement. Adrenal glands unremarkable. Kidneys are within normal limits for age, without hydronephrosis. Redemonstration of simple appearing large left renal cyst. Additional bilateral additional renal cysts with simple appearance Peritoneum and bowel: Stomach is within normal limits. Small bowel and duodenum unremarkable. No free fluid or air. No specific evidence for bowel obstruction. Surgical anastomosis seen in the rectosigmoid junction. Rectum unremarkable, given current state of decompression. Nodes and vessels: No retroperitoneal or mesenteric adenopathy by size criteria. Aorta and inferior vena cava are normal in size. Miscellaneous: No ventral hernias. PELVIS: Genitourinary: Bladder wall thickness is normal. Miscellaneous: Small bilateral fat-containing inguinal hernias. No pelvic adenopathy. Bones: No suspicious bone lesion. Diffuse spondylosis. IMPRESSION: Overall, no specific evidence of active recurrent or residual tumor. Bilateral renal cysts, largest seen in the anterior left renal cortex as before. Heterogeneous, ill-defined appearance of the pancreas with subcentimeter cystic foci involving the body and uncinate process. Recommend continued long-term surveillance with CT to exclude cystic pancreatic neoplasm. 6 mm right sulcal nodular focus, recommend continued attention to this area to exclude early metastatic pulmonary nodule, however this is unchanged since 10/09/18. Dictated by: Pool Olivier M.D. on 04/09/2019 at 16:18 Approved by: Pool Olivier M.D. on 04/09/2019 at 16:29
== END ==
PROVIDERS: PCP Student in an Organized Health Care Education/Training Program
DX: Z08 Encounter for follow-up examination after completed treatment for malignant neoplasm (principal); Z85.038 Personal history of other malignant neoplasm of large intestine; R97.0 Elevated carcinoembryonic antigen [CEA]; K86.89 Other specified diseases of pancreas; R91.1 Solitary pulmonary nodule; N28.1 Cyst of kidney, acquired; I25.10 Atherosclerotic heart disease of native coronary artery without angina pectoris; K40.20 Bilateral inguinal hernia, without obstruction or gangrene, not specified as recurrent; Z98.0 Intestinal bypass and anastomosis status
CPT/HCPCS: 71260; 74177; Q9967

== ENCOUNTER → 2019-09-03 11:25 | Outpatient (CLI) | payer MEDICARE, OTHER, SELFPAY ==
[2018-05-14 11:50] VITALS: BMI 28.5
[2019-09-03 12:11] LABS: Add Manual Diff / Slide Review NO; Basophils Absolute Auto 0 /uL (0-100); Basophils Percent Auto 0.6 % (0-2); Eosinophils Absolute Auto 0 /uL (0-450); Eosinophils Percent Auto 0.7 % (2-4); Hematocrit 35.2 % (41-53); Hemoglobin 12.2 g/dL (13.5-17.5); Lymphocytes Absolute Auto 1200 /uL (1100-4500); Mean Corpuscular HGB Conc 34.6 % (30-36); Mean Corpuscular Hemoglobin 30.8 PG (26-34); Mean Corpuscular Volume 88.8 fL (80-100); Monocytes Absolute Auto 400 /uL (0-900); Monocytes Percent Auto 4.9 % (3-14); Neutrophils Absolute Auto 5800 /uL (1500-7000); Neutrophils Percent Auto 77.8 % (50-75); Platelet Count 167 X10^3/uL (150-400); Red Blood Cell Count 3.97 X10^6/uL (4.5-5.9); Red Cell Distribution Width 13.7 % (11.6-14.8); White Blood Cell Count 7.4 X10^3/uL (4.5-11.0)
[2019-09-03 12:35] LABS: Alanine Aminotransferase 24 IU/L (<50); Albumin 4.1 g/dL (3.5-5.0); Albumin Globulin Ratio 1.5 (1.0-2.8); Alkaline Phosphatase 68 U/L (38-126); Aspartate Aminotransferase 23 IU/L (17-59); BUN Creatinine Ratio 13.3 (6-22); Bilirubin Total 0.4 mg/dL (0.2-1.3); Blood Urea Nitrogen 16 mg/dL (9-20); Carbon Dioxide 25 mmol/L (22-32); Chloride 105 mmol/L (98-107); Estimated Glomerular Filt Rate > 60.0 mL/min (>60); Globulin 2.7 g/dL (1.7-4.1); Glucose 297 mg/dL (80-110); HEMOLYSIS < 15 (0-50); Potassium 4.7 mmol/L (3.4-5.1); Sodium 140 mmol/L (137-145); Total Protein 6.8 g/dL (6.3-8.2)
[2019-09-03 13:06] LABS: Carcinoembryonic Antigen 8.2 ng/mL (0.1-3.0)
== END ==
PROVIDERS: PCP Student in an Organized Health Care Education/Training Program
DX: C18.9 Malignant neoplasm of colon, unspecified (principal)
CPT/HCPCS: 36415; 80053; 82378; 85025

== ENCOUNTER → 2019-09-18 11:31 | Outpatient (CLI) | payer MEDICARE, OTHER, SELFPAY ==
[2018-05-14 11:50] VITALS: BMI 28.5
--- NOTE | 2019-09-18 | DI.CT.S_ITS ---
PROCEDURE: CT CHEST ABD PEL W CON INDICATIONS: Malignant neoplasm of colon TECHNIQUE: After the administration of oral and intravenous contrast, 5 mm thick sections acquired from the lung apices to the symphysis. 5 mm coronal and sagittal reformats were performed, with additional 7 mm coronal MIP reformats through the lungs. For radiation dose reduction, the following was used: automated exposure control, adjustment of mA and/or kV according to patient size. COMPARISON: [facility], CT, CT CHEST ABD PEL W CON, 04/09/2019, 14:15. FINDINGS: Image quality: Excellent. CHEST: Lungs and pleura: The few pulmonary nodules. For example -Right lower lobe juxtapleural nodule mean diameter of 9 mm, (3/254), previously 8 mm, previously 8 mm. This was not present on the 2017 CT. -Right lower lobe juxtapleural nodule in measuring mean diameter of 7 mm, (3/251), previously 7 mm. -Right lower lobe adjacent nodule or nodular opacity measuring 4 mm, (3/240), previously 4 mm. No new or enlarging pulmonary nodules. No pulmonary mass. No acute airspace opacities. Mild streaky opacity at the lung bases most compatible with atelectasis. No pleural effusions or pneumothorax. Central and peripheral airways appear patent and normal in caliber. Mediastinum: Heart size is normal. No pericardial effusion. No mediastinal or hilar adenopathy by size criteria. Thoracic aorta and central pulmonary arteries are normal in size. Esophagus is normal in caliber. No hiatal hernia. Chest wall: Bilateral gynecomastia. Right-sided port with the catheter tip at the lower 3rd of the SVC. No axillary or supraclavicular adenopathy by size criteria. Thyroid gland is unremarkable. ABDOMEN: Solid organs: Liver is normal in size and enhancement. No focal hepatic lesion identified. Gallbladder is mildly distended. No calcified gallstones. Biliary system is non dilated. Coarse calcification in the pancreas. Multiple small cystic lesions versus dilated pancreatic duct. Overall these findings appear similar to the CT 04/09/2019. These findings have progressed compared to 2017. Postsurgical change adjacent to the tail the pancreas. Spleen is normal in size and enhancement. No adrenal nodules. Kidneys demonstrate normal size and enhancement, without hydronephrosis. A large simple cyst at the inferior pole left kidney measuring up to 9.5 cm. Several additional simple appearing cysts bilaterally. Scarring in the mid left kidney. No kidney stones identified. Peritoneum and bowel: Left presacral enhancing nodule measuring 1.7 x 1.4 cm scar (2/115), previously 1 x 0.9 cm, previously 0.9 x 0.7 cm. Rectosigmoid colonic anastomosis. No obvious mass. Adjacent fatty nodule with peripheral thickening in the midline pelvis, (2/109), unchanged and may represent fat necrosis from prior surgery versus torsed epiploic appendage. No small bowel obstruction. The appendix is normal in caliber. Nodes and vessels: No retroperitoneal or mesenteric adenopathy by size criteria. Aorta and inferior vena cava are normal in size. Miscellaneous: No ventral hernias. PELVIS: Genitourinary: Bladder wall thickness is normal. Miscellaneous: Small fat containing left internal hernia. No adenopathy. Bones: No suspicious bony lesions. No vertebral body compression fractures. IMPRESSION: 1. Left presacral enhancing nodule measuring 1.7 cm is concerning for residual disease. 2. Right lower lobe pulmonary nodules are not significantly changed compared to April 2019. These nodules remain indeterminate in this patient with history of colorectal cancer and elevated CEA levels. No new nodules. 3. No focal hepatic lesion. No ascites. 4. Pancreatic calcifications and present dilated pancreatic duct. Findings may be due to the sequelae of prior pancreatitis. Alternatively, these could represent small pancreatic cystic lesions. -If clinically indicated, MRI of the pancreas could be helpful for further characterization. Dictated by: Mitesh Escobar M.D. on 09/18/2019 at 14:45 Approved by: Mitesh Escobar M.D. on 09/18/2019 at 15:28
== END ==
PROVIDERS: PCP Student in an Organized Health Care Education/Training Program; Referring Provider Internal Medicine Hematology & Oncology; Visit Provider Internal Medicine Hematology & Oncology
DX: C18.9 Malignant neoplasm of colon, unspecified (principal); N62 Hypertrophy of breast; R91.8 Other nonspecific abnormal finding of lung field; K86.89 Other specified diseases of pancreas; N28.1 Cyst of kidney, acquired; K66.9 Disorder of peritoneum, unspecified; Z98.0 Intestinal bypass and anastomosis status
CPT/HCPCS: 71260; 74177; Q9967

== ENCOUNTER → 2019-10-06 14:40 | Oncology outpatient (ONC) | payer MEDICARE, OTHER, SELFPAY ==
[2017-11-06 09:02] LABS: Add Manual Diff / Slide Review NO; Basophils Percent Auto 0.6 % (0-2); Eosinophils Percent Auto 2.3 % (2-4); Hematocrit 31.1 % (41-53); Hemoglobin 10.8 g/dL (13.5-17.5); Lymphocytes Percent Auto 25.5 % (25-40); Mean Corpuscular HGB Conc 34.7 % (30-36); Mean Corpuscular Hemoglobin 29.4 PG (26-34); Mean Corpuscular Volume 84.7 fL (80-100); Monocytes Percent Auto 9.3 % (3-14); Neutrophils Absolute Auto 3200 /uL (3000-5900); Neutrophils Percent Auto 62.3 % (50-75); Platelet Count 125 X10^3/uL (150-400); Red Blood Cell Count 3.67 X10^6/uL (4.5-5.9); Red Cell Distribution Width 16.8 % (11.6-14.8); White Blood Cell Count 5.1 X10^3/uL (4.5-11.0)
[2017-11-06 09:15] LABS: Alanine Aminotransferase 51 IU/L (21-72); Albumin Globulin Ratio 1.4 (1.0-2.8); Alkaline Phosphatase 83 U/L (38-126); Aspartate Aminotransferase 27 IU/L (17-59); Bilirubin Total 0.3 mg/dL (0.2-1.3); Calcium 9.2 mg/dL (8.4-10.2); Estimated Glomerular Filt Rate > 60.0 mL/min (>60); Globulin 2.9 g/dL (1.7-4.1); Glucose 146 mg/dL (80-110); HEMOLYSIS < 15 (0-50); Potassium 4.2 mmol/L (3.4-5.1); Sodium 139 mmol/L (137-145); Total Protein 6.9 g/dL (6.3-8.2)
[2017-11-06] MEDS: LORazepam 0.5 MG TABLET PO (09:51)
[2017-11-06] MEDS: IRON SUCROSE 200 MG in SODIUM CHLORIDE 0.9% 100 ML 220 ML IV (10:31)
[2017-11-06] MEDS: DEXAMETHASONE 12 MG in SODIUM CHLORIDE 0.9% 50 ML 212 ML IV (11:16)
[2017-11-06] MEDS: ONDANSETRON 16 MG in SODIUM CHLORIDE 0.9% 50 ML 232 ML IV (11:16)
[2017-11-06] MEDS: FOSAPREPITANT 150 MG in SODIUM CHLORIDE 0.9% 150 ML 300 ML IV (11:45)
[2017-11-06 12:23] VITALS: BP 142/75; PULSE 72; RESP 18; TEMP 36.8; O2SAT 100
[2017-11-06] MEDS: DEXTROSE 5 % IN WATER 100 ML 21 ML IV (12:53)
[2017-11-06] MEDS: LEUCOVORIN IV (12:53)
[2017-11-06] MEDS: DEXTROSE 5% IV ×2 (12:53→12:54)
[2017-11-06] MEDS: OXALIPLATIN IV (12:54)
--- NOTE | 2017-11-06 13:21 | ONC.APRN.PN ---
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 He presents today for consideration of cycle 4/12 planned FOLFOX. CMP CBC unremarkable, he has no new complaints on exam today overall doing quite well with excellent tolerance to treatment. Green light today for FOLFOX #4/12. He has appt in [address] Rocha, labs ordered previously. Cont iron sucrose infusions as previously prescribed. PN -Subjective Interval history: Vadim is a 67-year-old male with recently confirmed st IIIB invasive adenocarcinoma of the distal sigmoid colon. Subsequently he underwent surgical resection March 13, 2017. One of 7 regional lymph nodes was positive for metastatic disease. Treatment with FOLFOX was initiated 10/09/2017. he presents today for cycle4/12 administered q14 days. Vadim has no new complaints on exam today. He continues to note some numbness/pain in his fingertips when he reaches into the fridge. Symptoms worse immediately after FOLFOX improves until next infusion. Otherwise activity tolerance is good. No cough, fever, chills. Very infrequent mild nausea which resolved on its own. Appetite is stable. No change with bowel habits/colostomy. No skin changes. No chest pain, shortness of breath. Vadim was found to have NORTH he has received 2 iron sucrose 200mg infusions thus far. TIMELINE: 1) Colorectal Cancer. Stage IIIB (pT3, pN1, M0). Diagnosis: 01/29/2017. Biopsy of the sigmoid mass. Pathology confirming a moderately differentiated adenocarcinoma. MSI stable (intact nuclear expression: MLH1, MSH 2, MSH6, and PMS2). 01/29/2017. Biopsy of left colon polyp at 50 cm. Portions of fragmented colorectal mucosa involved by moderately differentiated adenocarcinoma. 03/13/2017. Pathology confirming a invasive adenocarcinoma in the distal sigmoid colon measuring 37 x 32 x 21 mm. Low grade. Tumor extended through the muscularis propria into the adventitia without extending to the peritoneal surface. Resected margins including the proximal distal and circumferential negative. No LV I seen. No tumor deposit seen. 47 regional lymph nodes were identified 1 positive for disease without extranodal extension. Clinical staging workup, pretreatment: 01/30/2017. CEA 24.9. 01/29/2017. Colonoscopy. Circumferential mass at the distal sigmoid colon extending to the rectosigmoid junction. Exact distance from the anal verge confirmed with a rigid sigmoidoscopy following the colonoscopic procedure. Most inferior aspect of the mass encountered 818 cm from the anal verge. The lesion extended proximally from there. 01/30/2017. CT abdomen and pelvis with contrast. In the rectum abnormal mural thickening rectosigmoid junction inferiorly to the middle lower thirds of the rectum. Maximum thickness 19 x 20 mm. Craniocaudal length of thickening is 70-80 meters. Liver spleen normal in size and enhancement. No retroperitoneal mesenteric or inguinal adenopathy. 02/13/2017. MRI pelvis without contrast (done at [facility]). Tumor Location: Tumor is located between 23 and 18 cm above anal verge. Anal verge to distal tumor margin 18 cm. Tumor is not at or below the pupil rectal sling. Distance of lower extent of tumor from top of anal sphincter 15 cm. Craniocaudad length of tumor is 4.5 cm. Extramural depth of invasion and MRT category: Extramural depth of invasion is 7 mm T category equal to T3c. Extramural venous invasion positive. Suspicious mesorectal lymph node seen left O: Image 11 series 3. Suspicious extra mesorectal lymph node to the right and above tumor agent 5-10 series 3 and images 2-7 of series 5. 03/07/2017. CT chest with contrast. No evidence of metastatic disease. Prognosis: 05/01/2017. [facility] prognostic online tool: 3 year recurrence free survival after adjuvant chemotherapy 85.9%. Overall survival at 5 years after adjuvant chemotherapy 83.4% (SEER 5 yr OS for stage IIIB = 46.3%) 2) Diabetes, diagnosed ~10 years ago. Currently on Lantus and glipizide. Patient is also on lisinopril. Patient is not aware of any neuropathy, Recent EGFR on 01/30/2017 at >60 ml/min. 3) Hypercholesterolemia. 4) Malignant melanoma: First episode back, ~15 years ago. Second lesion right cheek ~ 5 years ago. Managed, surveillence with dermatology. Results - Labs 11/06/17 08:54 11/06/17 08:54 Laboratory Last Values WBC 5.1 X10^3/uL (4.5-11.0) 11/06/17 08:54 RBC 3.67 X10^6/uL (4.5-5.9) L 11/06/17 08:54 Hgb 10.8 g/dL (13.5-17.5) L 11/06/17 08:54 Hct 31.1 % (41-53) L 11/06/17 08:54 MCV 84.7 fL (80-100) 11/06/17 08:54 MCH 29.4 PG (26-34) 11/06/17 08:54 MCHC 34.7 % (30-36) 11/06/17 08:54 RDW 16.8 % (11.6-14.8) H 11/06/17 08:54 Plt Count 125 X10^3/uL (150-400) L 11/06/17 08:54 Neut % (Auto) 62.3 % (50-75) 11/06/17 08:54 Lymph % (Auto) 25.5 % (25-40) 11/06/17 08:54 [place] % (Auto) 9.3 % (3-14) 11/06/17 08:54 Eos % (Auto) 2.3 % (2-4) 11/06/17 08:54 Baso % (Auto) 0.6 % (0-2) 11/06/17 08:54 Neut # (Auto) 3200 /uL (6002-3649) 11/06/17 08:54 Sodium 139 mmol/L (137-145) 11/06/17 08:54 Potassium 4.2 mmol/L (3.4-5.1) 11/06/17 08:54 Chloride 107.0 mmol/L (98-107) 11/06/17 08:54 Carbon Dioxide 19.0 mmol/L (22-32) L 11/06/17 08:54 BUN 19.0 mg/dL (9-20) 11/06/17 08:54 Creatinine 1.00 mg/dL (0.66-1.25) 11/06/17 08:54 Estimated GFR > 60.0 mL/min (>60) 11/06/17 08:54 BUN/Creatinine Ratio 19.0 (6-22) 11/06/17 08:54 Glucose 146 mg/dL (80-110) H 11/06/17 08:54 Calcium 9.2 mg/dL (8.4-10.2) 11/06/17 08:54 Total Bilirubin 0.3 mg/dL (0.2-1.3) 11/06/17 08:54 AST 27 IU/L (17-59) 11/06/17 08:54 ALT 51 IU/L (21-72) 11/06/17 08:54 Alkaline Phosphatase 83 U/L (38-126) 11/06/17 08:54 Total Protein 6.9 g/dL (6.3-8.2) 11/06/17 08:54 Albumin 4.0 g/dL (3.5-5.0) 11/06/17 08:54 Globulin 2.9 g/dL (1.7-4.1) 11/06/17 08:54 Albumin/Globulin Ratio 1.4 (1.0-2.8) 11/06/17 08:54 - Imaging Additional studies: Procedures Bypass Sigmoid Colon to Cutaneous, Open Approach (03/13/17) Control Bleeding in Peritoneal Cavity, Open Approach (03/13/17) Drainage of Peritoneal Cavity with Drainage Device, Percutaneous Approach (05/11/17) Excision of Mesenteric Lymphatic, Open Approach, Diagnostic (03/13/17) Insertion of Infusion Device into Superior Vena Cava, Percutaneous Approach (03/13/17) Inspection of Lower Intestinal Tract, Via Natural or Artificial Opening Endoscopic (03/13/17) Resection of Rectum, Open Approach (03/13/17) Resection of Sigmoid Colon, Open Approach (03/13/17) Transfusion of Nonautologous Red Blood Cells into Central Vein, Percutaneous Approach (03/13/17) Home Medications and Allergies Home Medications Medication Instructions Recorded Confirmed Type atorvastatin [Lipitor] 10 mg PO QDAY #0 01/29/17 History insulin glargine [Basaglar KwikPen 10 unit SQ QDAY #0 05/01/17 History U-100 Insulin] Allergies Allergy/AdvReac Type Severity Reaction Status Date / Time No Allergy Information Allergy Unknown Unverified 10/10/17 13:06 Available [NO ALLERGY INFORMATION AVAILABLE] Exam Vital signs: Last Vital Signs Temp 98.2 F 11/06/17 12:23 Pulse 72 11/06/17 12:23 Resp 18 11/06/17 12:23 BP 142/75 H 11/06/17 12:23 Pulse Ox 100 11/06/17 12:23 Narrative: well appearing - Constitutional positive no acute distress - Routine HEENT Exam Head: Present: normocephalic ENT: Present: mucous membranes moist - Routine Respiratory Exam Present: Clear to auscultation bilaterally - Routine Cardiovascular Exam Present: RRR - Routine Abdominal Exam Present: soft, normoactive bowel sounds. Absent: tenderness, distended, organomegaly - Routine Skin Exam Present: intact, normal turgor. Absent: petechiae - Routine Neurological Exam Present: alert, oriented X3 - Routine Psychiatric Exam Present: normal affect
--- NOTE | 2017-11-06 13:42 | P.PNONC_ITS ---
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 He presents today for consideration of cycle 4/12 planned FOLFOX. CMP CBC unremarkable, he has no new complaints on exam today overall doing quite well with excellent tolerance to treatment. Green light today for FOLFOX #4/12. He has appt in [address] Rocha, labs ordered previously. Cont iron sucrose infusions as previously prescribed. PN -Subjective Interval history: Vadim is a 67-year-old male with recently confirmed st IIIB invasive adenocarcinoma of the distal sigmoid colon. Subsequently he underwent surgical resection March 13, 2017. One of 7 regional lymph nodes was positive for metastatic disease. Treatment with FOLFOX was initiated 10/09/2017. he presents today for cycle4/12 administered q14 days. Vadim has no new complaints on exam today. He continues to note some numbness/ pain in his fingertips when he reaches into the fridge. Symptoms worse immediately after FOLFOX improves until next infusion. Otherwise activity tolerance is good. No cough, fever, chills. Very infrequent mild nausea which resolved on its own. Appetite is stable. No change with bowel habits/ colostomy. No skin changes. No chest pain, shortness of breath. Vadim was found to have NORTH he has received 2 iron sucrose 200mg infusions thus far. TIMELINE: 1) Colorectal Cancer. Stage IIIB (pT3, pN1, M0). Diagnosis: 01/29/2017. Biopsy of the sigmoid mass. Pathology confirming a moderately differentiated adenocarcinoma. MSI stable (intact nuclear expression: MLH1, MSH 2, MSH6, and PMS2). 01/29/2017. Biopsy of left colon polyp at 50 cm. Portions of fragmented colorectal mucosa involved by moderately differentiated adenocarcinoma. 03/13/2017. Pathology confirming a invasive adenocarcinoma in the distal sigmoid colon measuring 37 x 32 x 21 mm. Low grade. Tumor extended through the muscularis propria into the adventitia without extending to the peritoneal surface. Resected margins including the proximal distal and circumferential negative. No LV I seen. No tumor deposit seen. 47 regional lymph nodes were identified 1 positive for disease without extranodal extension. Clinical staging workup, pretreatment: 01/30/2017. CEA 24.9. 01/29/2017. Colonoscopy. Circumferential mass at the distal sigmoid colon extending to the rectosigmoid junction. Exact distance from the anal verge confirmed with a rigid sigmoidoscopy following the colonoscopic procedure. Most inferior aspect of the mass encountered 818 cm from the anal verge. The lesion extended proximally from there. 01/30/2017. CT abdomen and pelvis with contrast. In the rectum abnormal mural thickening rectosigmoid junction inferiorly to the middle lower thirds of the rectum. Maximum thickness 19 x 20 mm. Craniocaudal length of thickening is 70- 80 meters. Liver spleen normal in size and enhancement. No retroperitoneal mesenteric or inguinal adenopathy. 02/13/2017. MRI pelvis without contrast (done at [facility]) . Tumor Location: Tumor is located between 23 and 18 cm above anal verge. Anal verge to distal tumor margin 18 cm. Tumor is not at or below the pupil rectal sling. Distance of lower extent of tumor from top of anal sphincter 15 cm. Craniocaudad length of tumor is 4.5 cm. Extramural depth of invasion and MRT category: Extramural depth of invasion is 7 mm T category equal to T3c. Extramural venous invasion positive. Suspicious mesorectal lymph node seen left O: Image 11 series 3. Suspicious extra mesorectal lymph node to the right and above tumor agent 5-10 series 3 and images 2-7 of series 5. 03/07/2017. CT chest with contrast. No evidence of metastatic disease. Prognosis: 05/01/2017. [facility] prognostic online tool: 3 year recurrence free survival after adjuvant chemotherapy 85.9%. Overall survival at 5 years after adjuvant chemotherapy 83.4% (SEER 5 yr OS for stage IIIB = 46.3%) 2) Diabetes, diagnosed ~10 years ago. Currently on Lantus and glipizide. Patient is also on lisinopril. Patient is not aware of any neuropathy, Recent EGFR on 01/30/2017 at >60 ml/min. 3) Hypercholesterolemia. 4) Malignant melanoma: First episode back, ~15 years ago. Second lesion right cheek ~ 5 years ago. Managed, surveillence with dermatology. Results - Labs 11/06/17 08:54 11/06/17 08:54 Laboratory Last Values WBC 5.1 X10^3/uL (4.5-11.0) 11/06/17 08:54 RBC 3.67 X10^6/uL (4.5-5.9) L 11/06/17 08:54 Hgb 10.8 g/dL (13.5-17.5) L 11/06/17 08:54 Hct 31.1 % (41-53) L 11/06/17 08:54 MCV 84.7 fL (80-100) 11/06/17 08:54 MCH 29.4 PG (26-34) 11/06/17 08:54 MCHC 34.7 % (30-36) 11/06/17 08:54 RDW 16.8 % (11.6-14.8) H 11/06/17 08:54 Plt Count 125 X10^3/uL (150-400) L 11/06/17 08:54 Neut % (Auto) 62.3 % (50-75) 11/06/17 08:54 Lymph % (Auto) 25.5 % (25-40) 11/06/17 08:54 [place] % (Auto) 9.3 % (3-14) 11/06/17 08:54 Eos % (Auto) 2.3 % (2-4) 11/06/17 08:54 Baso % (Auto) 0.6 % (0-2) 11/06/17 08:54 Neut # (Auto) 3200 /uL (5238-4822) 11/06/17 08:54 Sodium 139 mmol/L (137-145) 11/06/17 08:54 Potassium 4.2 mmol/L (3.4-5.1) 11/06/17 08:54 Chloride 107.0 mmol/L (98-107) 11/06/17 08:54 Carbon Dioxide 19.0 mmol/L (22-32) L 11/06/17 08:54 BUN 19.0 mg/dL (9-20) 11/06/17 08:54 Creatinine 1.00 mg/dL (0.66-1.25) 11/06/17 08:54 Estimated GFR > 60.0 mL/min (>60) 11/06/17 08:54 BUN/Creatinine Ratio 19.0 (6-22) 11/06/17 08:54 Glucose 146 mg/dL (80-110) H 11/06/17 08:54 Calcium 9.2 mg/dL (8.4-10.2) 11/06/17 08:54 Total Bilirubin 0.3 mg/dL (0.2-1.3) 11/06/17 08:54 AST 27 IU/L (17-59) 11/06/17 08:54 ALT 51 IU/L (21-72) 11/06/17 08:54 Alkaline Phosphatase 83 U/L (38-126) 11/06/17 08:54 Total Protein 6.9 g/dL (6.3-8.2) 11/06/17 08:54 Albumin 4.0 g/dL (3.5-5.0) 11/06/17 08:54 Globulin 2.9 g/dL (1.7-4.1) 11/06/17 08:54 Albumin/Globulin Ratio 1.4 (1.0-2.8) 11/06/17 08:54 - Imaging Additional studies: Procedures Bypass Sigmoid Colon to Cutaneous, Open Approach (03/13/17) Control Bleeding in Peritoneal Cavity, Open Approach (03/13/17) Drainage of Peritoneal Cavity with Drainage Device, Percutaneous Approach (05/11) Excision of Mesenteric Lymphatic, Open Approach, Diagnostic (03/13/17) Insertion of Infusion Device into Superior Vena Cava, Percutaneous Approach (06/17) Inspection of Lower Intestinal Tract, Via Natural or Artificial Opening Endoscopic (03/13/17) Resection of Rectum, Open Approach (03/13/17) Resection of Sigmoid Colon, Open Approach (03/13/17) Transfusion of Nonautologous Red Blood Cells into Central Vein, Percutaneous Approach (03/13/17) Home Medications and Allergies Home Medications Medication Instructions Recorded Confirmed Type atorvastatin [Lipitor] 10 mg PO QDAY #0 01/29/17 History insulin glargine [Basaglar KwikPen 10 unit SQ QDAY #0 05/01/17 History U-100 Insulin] Allergies Allergy/AdvReac Type Severity Reaction Status Date / Time No Allergy Information Allergy Unknown Unverified 10/10/17 13:06 Available [NO ALLERGY INFORMATION AVAILABLE] Exam Vital signs: Last Vital Signs Temp 98.2 F 11/06/17 12:23 Pulse 72 11/06/17 12:23 Resp 18 11/06/17 12:23 BP 142/75 H 11/06/17 12:23 Pulse Ox 100 11/06/17 12:23 Narrative: well appearing - Constitutional positive no acute distress - Routine HEENT Exam Head: Present: normocephalic ENT: Present: mucous membranes moist - Routine Respiratory Exam Present: Clear to auscultation bilaterally - Routine Cardiovascular Exam Present: RRR - Routine Abdominal Exam Present: soft, normoactive bowel sounds. Absent: tenderness, distended, organomegaly - Routine Skin Exam Present: intact, normal turgor. Absent: petechiae - Routine Neurological Exam Present: alert, oriented X3 - Routine Psychiatric Exam Present: normal affect
[2017-11-06] MEDS: ISOOSMOTIC VEHICLE IV (15:29)
[2017-11-06] MEDS: FLUOROURACIL IV (15:29)
--- NOTE | 2017-11-06 15:44 | PC.NURSE ---
cadd pump settings verified with NR.KDN. line flushed, equashield attached and pump started without issue. Pt to rtn on Sun around 2p
--- NOTE | 2017-11-20 07:56 | ONC.APRN.PN ---
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 He presents today for cycle 4 of 12 planned FOLFOX. Additionally, he will continue with iron sucrose infusions as previously ordered. CBC, CMP today demonstrate mild cytopenias however well within treatment range. We did draw iron profile today, results pending at time of dictation. Vadim gets the greenlight for FOLFOX cycle 4/ today. RTC in 2 weeks provider visit, FOLFOX cycle 5/, cbc, cmp and iron infusions if indicated based on iron profile results today. 11/20/17 08:51 - Time Spent with Patient 35 minutes PN -Subjective Interval history: Vadim is a 67-year-old male with recently confirmed st IIIB invasive adenocarcinoma of the distal sigmoid colon. Subsequently he underwent surgical resection March 13, 2017. One of 7 regional lymph nodes was positive for metastatic disease. Treatment with FOLFOX was initiated 10/09/2017. he presents today for cycle4/12 administered q14 days. Vadim has no new complaints on exam today. He continues to note some numbness/pain in his fingertips when he reaches into the fridge. Symptoms worse immediately after FOLFOX improves until next infusion. Otherwise activity tolerance is good. No cough, fever, chills. Very infrequent mild nausea which resolved on its own. Appetite is stable. No change with bowel habits/colostomy. No skin changes. No chest pain, shortness of breath. Vadim was found to have NORTH he has received 3 iron sucrose 200mg infusions thus far. Vadim has no new complaints on exam today. 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 Does not seem to be getting worse. Activity tolerance remains quite good he remains active, mowing the lawn also riding his bike most days. No nausea or abdominal pain. Appetite is very good. No cough, fever, chills. TIMELINE: 1) Colorectal Cancer. Stage IIIB (pT3, pN1, M0). Diagnosis: 01/29/2017. Biopsy of the sigmoid mass. Pathology confirming a moderately differentiated adenocarcinoma. MSI stable (intact nuclear expression: MLH1, MSH 2, MSH6, and PMS2). 01/29/2017. Biopsy of left colon polyp at 50 cm. Portions of fragmented colorectal mucosa involved by moderately differentiated adenocarcinoma. 03/13/2017. Pathology confirming a invasive adenocarcinoma in the distal sigmoid colon measuring 37 x 32 x 21 mm. Low grade. Tumor extended through the muscularis propria into the adventitia without extending to the peritoneal surface. Resected margins including the proximal distal and circumferential negative. No LV I seen. No tumor deposit seen. 47 regional lymph nodes were identified 1 positive for disease without extranodal extension. Clinical staging workup, pretreatment: 01/30/2017. CEA 24.9. 01/29/2017. Colonoscopy. Circumferential mass at the distal sigmoid colon extending to the rectosigmoid junction. Exact distance from the anal verge confirmed with a rigid sigmoidoscopy following the colonoscopic procedure. Most inferior aspect of the mass encountered 818 cm from the anal verge. The lesion extended proximally from there. 01/30/2017. CT abdomen and pelvis with contrast. In the rectum abnormal mural thickening rectosigmoid junction inferiorly to the middle lower thirds of the rectum. Maximum thickness 19 x 20 mm. Craniocaudal length of thickening is 70-80 meters. Liver spleen normal in size and enhancement. No retroperitoneal mesenteric or inguinal adenopathy. 02/13/2017. MRI pelvis without contrast (done at [facility]). Tumor Location: Tumor is located between 23 and 18 cm above anal verge. Anal verge to distal tumor margin 18 cm. Tumor is not at or below the pupil rectal sling. Distance of lower extent of tumor from top of anal sphincter 15 cm. Craniocaudad length of tumor is 4.5 cm. Extramural depth of invasion and MRT category: Extramural depth of invasion is 7 mm T category equal to T3c. Extramural venous invasion positive. Suspicious mesorectal lymph node seen left O: Image 11 series 3. Suspicious extra mesorectal lymph node to the right and above tumor agent 5-10 series 3 and images 2-7 of series 5. 03/07/2017. CT chest with contrast. No evidence of metastatic disease. Prognosis: 05/01/2017. [facility] prognostic online tool: 3 year recurrence free survival after adjuvant chemotherapy 85.9%. Overall survival at 5 years after adjuvant chemotherapy 83.4% (SEER 5 yr OS for stage IIIB = 46.3%) 2) Diabetes, diagnosed ~10 years ago. Currently on Lantus and glipizide. Patient is also on lisinopril. Patient is not aware of any neuropathy, Recent EGFR on 01/30/2017 at >60 ml/min. 3) Hypercholesterolemia. 4) Malignant melanoma: First episode back, ~15 years ago. Second lesion right cheek ~ 5 years ago. Managed, surveillence with dermatology. Results - Labs 11/20/17 08:14 11/20/17 08:14 Laboratory Last Values WBC 5.1 X10^3/uL (4.5-11.0) 11/06/17 08:54 RBC 3.67 X10^6/uL (4.5-5.9) L 11/06/17 08:54 Hgb 10.8 g/dL (13.5-17.5) L 11/06/17 08:54 Hct 31.1 % (41-53) L 11/06/17 08:54 MCV 84.7 fL (80-100) 11/06/17 08:54 MCH 29.4 PG (26-34) 11/06/17 08:54 MCHC 34.7 % (30-36) 11/06/17 08:54 RDW 16.8 % (11.6-14.8) H 11/06/17 08:54 Plt Count 125 X10^3/uL (150-400) L 11/06/17 08:54 Neut % (Auto) 62.3 % (50-75) 11/06/17 08:54 Lymph % (Auto) 25.5 % (25-40) 11/06/17 08:54 [place] % (Auto) 9.3 % (3-14) 11/06/17 08:54 Eos % (Auto) 2.3 % (2-4) 11/06/17 08:54 Baso % (Auto) 0.6 % (0-2) 11/06/17 08:54 Neut # (Auto) 3200 /uL (8712-4183) 11/06/17 08:54 Sodium 139 mmol/L (137-145) 11/06/17 08:54 Potassium 4.2 mmol/L (3.4-5.1) 11/06/17 08:54 Chloride 107.0 mmol/L (98-107) 11/06/17 08:54 Carbon Dioxide 19.0 mmol/L (22-32) L 11/06/17 08:54 BUN 19.0 mg/dL (9-20) 11/06/17 08:54 Creatinine 1.00 mg/dL (0.66-1.25) 11/06/17 08:54 Estimated GFR > 60.0 mL/min (>60) 11/06/17 08:54 BUN/Creatinine Ratio 19.0 (6-22) 11/06/17 08:54 Glucose 146 mg/dL (80-110) H 11/06/17 08:54 Calcium 9.2 mg/dL (8.4-10.2) 11/06/17 08:54 Total Bilirubin 0.3 mg/dL (0.2-1.3) 11/06/17 08:54 AST 27 IU/L (17-59) 11/06/17 08:54 ALT 51 IU/L (21-72) 11/06/17 08:54 Alkaline Phosphatase 83 U/L (38-126) 11/06/17 08:54 Total Protein 6.9 g/dL (6.3-8.2) 11/06/17 08:54 Albumin 4.0 g/dL (3.5-5.0) 11/06/17 08:54 Globulin 2.9 g/dL (1.7-4.1) 11/06/17 08:54 Albumin/Globulin Ratio 1.4 (1.0-2.8) 11/06/17 08:54 - Imaging Additional studies: Procedures Bypass Sigmoid Colon to Cutaneous, Open Approach (03/13/17) Closed [endoscopic] biopsy of large intestine (11/17/11) Control Bleeding in Peritoneal Cavity, Open Approach (03/13/17) Drainage of Peritoneal Cavity with Drainage Device, Percutaneous Approach (05/11/17) Endoscopic polypectomy of large intestine (06/12/12) Excision of Mesenteric Lymphatic, Open Approach, Diagnostic (03/13/17) Insertion of Infusion Device into Superior Vena Cava, Percutaneous Approach (03/13/17) Inspection of Lower Intestinal Tract, Via Natural or Artificial Opening Endoscopic (03/13/17) Resection of Rectum, Open Approach (03/13/17) Resection of Sigmoid Colon, Open Approach (03/13/17) Transfusion of Nonautologous Red Blood Cells into Central Vein, Percutaneous Approach (03/13/17) [Endoscopic] polypectomy of rectum (11/17/11) Home Medications and Allergies Home Medications Medication Instructions Recorded Confirmed Type atorvastatin [Lipitor] 20 mg PO QDAY #0 01/29/17 History insulin glargine [Basaglar KwikPen 10 unit SQ QDAY #0 05/01/17 History U-100 Insulin] biotin PO DAILY 11/20/17 History Allergies Allergy/AdvReac Type Severity Reaction Status Date / Time No Allergy Information Allergy Unknown Unverified 10/10/17 13:06 Available [NO ALLERGY INFORMATION AVAILABLE] Exam Vital signs: Last Vital Signs Temp 98.2 F 11/06/17 12:23 Pulse 72 11/06/17 12:23 Resp 18 11/06/17 12:23 BP 142/75 H 11/06/17 12:23 Pulse Ox 100 11/06/17 12:23 Narrative: well appearing - Constitutional positive no acute distress - Routine HEENT Exam Head: Present: normocephalic ENT: Present: mucous membranes moist - Routine Neck Exam Absent: lymphadenopathy - Routine Chest/Breast/Axilla Exam Axillae: Absent: lymphadenopathy - Routine Respiratory Exam Present: Clear to auscultation bilaterally - Routine Cardiovascular Exam Present: RRR, S1, S2 - Routine Abdominal Exam Present: soft, normoactive bowel sounds. Absent: tenderness, distended, organomegaly - Routine Extremities Exam Absent: edema, calf tenderness - Routine Skin Exam Present: intact, normal turgor. Absent: petechiae - Routine Neurological Exam Present: alert, oriented X3 - Routine Psychiatric Exam Present: normal affect
--- NOTE | 2017-11-20 07:59 | P.PNONC_ITS ---
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 He presents today for cycle 4 of 12 planned FOLFOX. Additionally, he will continue with iron sucrose infusions as previously ordered. CBC, CMP today demonstrate mild cytopenias however well within treatment range. We did draw iron profile today, results pending at time of dictation. Vadim gets the greenlight for FOLFOX cycle 4/ today. RTC in 2 weeks provider visit, FOLFOX cycle 5/, cbc, cmp and iron infusions if indicated based on iron profile results today. 11/20/17 08:51 - Time Spent with Patient 35 minutes PN -Subjective Interval history: Vadim is a 67-year-old male with recently confirmed st IIIB invasive adenocarcinoma of the distal sigmoid colon. Subsequently he underwent surgical resection March 13, 2017. One of 7 regional lymph nodes was positive for metastatic disease. Treatment with FOLFOX was initiated 10/09/2017. he presents today for cycle4/12 administered q14 days. Vadim has no new complaints on exam today. He continues to note some numbness/ pain in his fingertips when he reaches into the fridge. Symptoms worse immediately after FOLFOX improves until next infusion. Otherwise activity tolerance is good. No cough, fever, chills. Very infrequent mild nausea which resolved on its own. Appetite is stable. No change with bowel habits/ colostomy. No skin changes. No chest pain, shortness of breath. Vadim was found to have NORTH he has received 3 iron sucrose 200mg infusions thus far. Vadim has no new complaints on exam today. 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 Does not seem to be getting worse. Activity tolerance remains quite good he remains active, mowing the lawn also riding his bike most days. No nausea or abdominal pain. Appetite is very good. No cough, fever, chills. TIMELINE: 1) Colorectal Cancer. Stage IIIB (pT3, pN1, M0). Diagnosis: 01/29/2017. Biopsy of the sigmoid mass. Pathology confirming a moderately differentiated adenocarcinoma. MSI stable (intact nuclear expression: MLH1, MSH 2, MSH6, and PMS2). 01/29/2017. Biopsy of left colon polyp at 50 cm. Portions of fragmented colorectal mucosa involved by moderately differentiated adenocarcinoma. 03/13/2017. Pathology confirming a invasive adenocarcinoma in the distal sigmoid colon measuring 37 x 32 x 21 mm. Low grade. Tumor extended through the muscularis propria into the adventitia without extending to the peritoneal surface. Resected margins including the proximal distal and circumferential negative. No LV I seen. No tumor deposit seen. 47 regional lymph nodes were identified 1 positive for disease without extranodal extension. Clinical staging workup, pretreatment: 01/30/2017. CEA 24.9. 01/29/2017. Colonoscopy. Circumferential mass at the distal sigmoid colon extending to the rectosigmoid junction. Exact distance from the anal verge confirmed with a rigid sigmoidoscopy following the colonoscopic procedure. Most inferior aspect of the mass encountered 818 cm from the anal verge. The lesion extended proximally from there. 01/30/2017. CT abdomen and pelvis with contrast. In the rectum abnormal mural thickening rectosigmoid junction inferiorly to the middle lower thirds of the rectum. Maximum thickness 19 x 20 mm. Craniocaudal length of thickening is 70- 80 meters. Liver spleen normal in size and enhancement. No retroperitoneal mesenteric or inguinal adenopathy. 02/13/2017. MRI pelvis without contrast (done at [facility]) . Tumor Location: Tumor is located between 23 and 18 cm above anal verge. Anal verge to distal tumor margin 18 cm. Tumor is not at or below the pupil rectal sling. Distance of lower extent of tumor from top of anal sphincter 15 cm. Craniocaudad length of tumor is 4.5 cm. Extramural depth of invasion and MRT category: Extramural depth of invasion is 7 mm T category equal to T3c. Extramural venous invasion positive. Suspicious mesorectal lymph node seen left O: Image 11 series 3. Suspicious extra mesorectal lymph node to the right and above tumor agent 5-10 series 3 and images 2-7 of series 5. 03/07/2017. CT chest with contrast. No evidence of metastatic disease. Prognosis: 05/01/2017. [facility] prognostic online tool: 3 year recurrence free survival after adjuvant chemotherapy 85.9%. Overall survival at 5 years after adjuvant chemotherapy 83.4% (SEER 5 yr OS for stage IIIB = 46.3%) 2) Diabetes, diagnosed ~10 years ago. Currently on Lantus and glipizide. Patient is also on lisinopril. Patient is not aware of any neuropathy, Recent EGFR on 01/30/2017 at >60 ml/min. 3) Hypercholesterolemia. 4) Malignant melanoma: First episode back, ~15 years ago. Second lesion right cheek ~ 5 years ago. Managed, surveillence with dermatology. Results - Labs 11/20/17 08:14 11/20/17 08:14 Laboratory Last Values WBC 5.1 X10^3/uL (4.5-11.0) 11/06/17 08:54 RBC 3.67 X10^6/uL (4.5-5.9) L 11/06/17 08:54 Hgb 10.8 g/dL (13.5-17.5) L 11/06/17 08:54 Hct 31.1 % (41-53) L 11/06/17 08:54 MCV 84.7 fL (80-100) 11/06/17 08:54 MCH 29.4 PG (26-34) 11/06/17 08:54 MCHC 34.7 % (30-36) 11/06/17 08:54 RDW 16.8 % (11.6-14.8) H 11/06/17 08:54 Plt Count 125 X10^3/uL (150-400) L 11/06/17 08:54 Neut % (Auto) 62.3 % (50-75) 11/06/17 08:54 Lymph % (Auto) 25.5 % (25-40) 11/06/17 08:54 [place] % (Auto) 9.3 % (3-14) 11/06/17 08:54 Eos % (Auto) 2.3 % (2-4) 11/06/17 08:54 Baso % (Auto) 0.6 % (0-2) 11/06/17 08:54 Neut # (Auto) 3200 /uL (9242-9097) 11/06/17 08:54 Sodium 139 mmol/L (137-145) 11/06/17 08:54 Potassium 4.2 mmol/L (3.4-5.1) 11/06/17 08:54 Chloride 107.0 mmol/L (98-107) 11/06/17 08:54 Carbon Dioxide 19.0 mmol/L (22-32) L 11/06/17 08:54 BUN 19.0 mg/dL (9-20) 11/06/17 08:54 Creatinine 1.00 mg/dL (0.66-1.25) 11/06/17 08:54 Estimated GFR > 60.0 mL/min (>60) 11/06/17 08:54 BUN/Creatinine Ratio 19.0 (6-22) 11/06/17 08:54 Glucose 146 mg/dL (80-110) H 11/06/17 08:54 Calcium 9.2 mg/dL (8.4-10.2) 11/06/17 08:54 Total Bilirubin 0.3 mg/dL (0.2-1.3) 11/06/17 08:54 AST 27 IU/L (17-59) 11/06/17 08:54 ALT 51 IU/L (21-72) 11/06/17 08:54 Alkaline Phosphatase 83 U/L (38-126) 11/06/17 08:54 Total Protein 6.9 g/dL (6.3-8.2) 11/06/17 08:54 Albumin 4.0 g/dL (3.5-5.0) 11/06/17 08:54 Globulin 2.9 g/dL (1.7-4.1) 11/06/17 08:54 Albumin/Globulin Ratio 1.4 (1.0-2.8) 11/06/17 08:54 - Imaging Additional studies: Procedures Bypass Sigmoid Colon to Cutaneous, Open Approach (03/13/17) Closed [endoscopic] biopsy of large intestine (11/17/11) Control Bleeding in Peritoneal Cavity, Open Approach (03/13/17) Drainage of Peritoneal Cavity with Drainage Device, Percutaneous Approach (05/11) Endoscopic polypectomy of large intestine (06/12/12) Excision of Mesenteric Lymphatic, Open Approach, Diagnostic (03/13/17) Insertion of Infusion Device into Superior Vena Cava, Percutaneous Approach (06/17) Inspection of Lower Intestinal Tract, Via Natural or Artificial Opening Endoscopic (03/13/17) Resection of Rectum, Open Approach (03/13/17) Resection of Sigmoid Colon, Open Approach (03/13/17) Transfusion of Nonautologous Red Blood Cells into Central Vein, Percutaneous Approach (03/13/17) [Endoscopic] polypectomy of rectum (11/17/11) Home Medications and Allergies Home Medications Medication Instructions Recorded Confirmed Type atorvastatin [Lipitor] 20 mg PO QDAY #0 01/29/17 History insulin glargine [Basaglar KwikPen 10 unit SQ QDAY #0 05/01/17 History U-100 Insulin] biotin PO DAILY 11/20/17 History Allergies Allergy/AdvReac Type Severity Reaction Status Date / Time No Allergy Information Allergy Unknown Unverified 10/10/17 13:06 Available [NO ALLERGY INFORMATION AVAILABLE] Exam Vital signs: Last Vital Signs Temp 98.2 F 11/06/17 12:23 Pulse 72 11/06/17 12:23 Resp 18 11/06/17 12:23 BP 142/75 H 11/06/17 12:23 Pulse Ox 100 11/06/17 12:23 Narrative: well appearing - Constitutional positive no acute distress - Routine HEENT Exam Head: Present: normocephalic ENT: Present: mucous membranes moist - Routine Neck Exam Absent: lymphadenopathy - Routine Chest/Breast/Axilla Exam Axillae: Absent: lymphadenopathy - Routine Respiratory Exam Present: Clear to auscultation bilaterally - Routine Cardiovascular Exam Present: RRR, S1, S2 - Routine Abdominal Exam Present: soft, normoactive bowel sounds. Absent: tenderness, distended, organomegaly - Routine Extremities Exam Absent: edema, calf tenderness - Routine Skin Exam Present: intact, normal turgor. Absent: petechiae - Routine Neurological Exam Present: alert, oriented X3 - Routine Psychiatric Exam Present: normal affect
[2017-11-20 08:24] LABS: Add Manual Diff / Slide Review NO; Basophils Percent Auto 0.9 % (0-2); Eosinophils Percent Auto 1.4 % (2-4); Hematocrit 31.4 % (41-53); Lymphocytes Percent Auto 24.7 % (25-40); Mean Corpuscular HGB Conc 35.1 % (30-36); Mean Corpuscular Volume 85.5 fL (80-100); Neutrophils Absolute Auto 2800 /uL (3000-5900); Platelet Count 108 X10^3/uL (150-400); Red Blood Cell Count 3.68 X10^6/uL (4.5-5.9); Red Cell Distribution Width 18.3 % (11.6-14.8); White Blood Cell Count 4.4 X10^3/uL (4.5-11.0)
[2017-11-20 08:32] VITALS: BP 139/82; PULSE 80; RESP 18; O2SAT 100
[2017-11-20 08:36] LABS: Alanine Aminotransferase 42 IU/L (21-72); Albumin 4.1 g/dL (3.5-5.0); Albumin Globulin Ratio 1.4 (1.0-2.8); Alkaline Phosphatase 83 U/L (38-126); Aspartate Aminotransferase 22 IU/L (17-59); Bilirubin Total 0.3 mg/dL (0.2-1.3); Calcium 9.2 mg/dL (8.4-10.2); Estimated Glomerular Filt Rate > 60.0 mL/min (>60); Glucose 201 mg/dL (80-110); HEMOLYSIS 16 (0-50); Potassium 4.6 mmol/L (3.4-5.1); Sodium 138 mmol/L (137-145); Total Protein 7.1 g/dL (6.3-8.2)
[2017-11-20] MEDS: LORazepam 0.5 MG TABLET PO (09:03)
[2017-11-20] MEDS: DEXAMETHASONE 12 MG in SODIUM CHLORIDE 0.9% 50 ML 212 ML IV (09:04)
[2017-11-20] MEDS: IRON SUCROSE 200 MG in SODIUM CHLORIDE 0.9% 100 ML 220 ML IV (09:36)
[2017-11-20 09:50] LABS: HEMOLYSIS < 15 (0-50); Iron 75 ug/dL (49-181)
[2017-11-20 10:01] LABS: Percent Iron Saturation 19 % (20-50); Total Iron Binding Capacity 396 ug/mL (261-462); Transferrin 307 mg/dL (206-381)
[2017-11-20] MEDS: FOSAPREPITANT 150 MG in SODIUM CHLORIDE 0.9% 150 ML 300 ML IV (10:20)
[2017-11-20] MEDS: ONDANSETRON 16 MG in SODIUM CHLORIDE 0.9% 50 ML 232 ML IV (10:59)
[2017-11-20] MEDS: DEXTROSE 5 % IN WATER 100 ML 20 ML IV (11:31)
[2017-11-20] MEDS: DEXTROSE 5% IV ×2 (11:31→11:32)
[2017-11-20] MEDS: LEUCOVORIN IV (11:31)
[2017-11-20] MEDS: OXALIPLATIN IV (11:32)
[2017-11-20] MEDS: ISOOSMOTIC VEHICLE IV (14:09)
[2017-11-20] MEDS: FLUOROURACIL IV (14:09)
--- NOTE | 2017-11-20 15:26 | PC.NURSE ---
CADD pump connected with continuous 5fu to run over 46 hours. Equishield on and engaged. Pump orders verified with NR. VAMSI. Patient will return to clinic around 1345 on , 11/22/17 for pump disconnect.
[2017-12-04 08:09] LABS: Add Manual Diff / Slide Review NO; Basophils Percent Auto 0.8 % (0-2); Eosinophils Percent Auto 1.4 % (2-4); Hematocrit 31.7 % (41-53); Hemoglobin 11.1 g/dL (13.5-17.5); Lymphocytes Percent Auto 20.6 % (25-40); Mean Corpuscular Hemoglobin 30.7 PG (26-34); Mean Corpuscular Volume 87.5 fL (80-100); Neutrophils Absolute Auto 3600 /uL (3000-5900); Neutrophils Percent Auto 67.2 % (50-75); Platelet Count 113 X10^3/uL (150-400); Red Blood Cell Count 3.62 X10^6/uL (4.5-5.9); Red Cell Distribution Width 18.9 % (11.6-14.8); White Blood Cell Count 5.3 X10^3/uL (4.5-11.0)
[2017-12-04 08:20] LABS: Alanine Aminotransferase 40 IU/L (21-72); Albumin 4.1 g/dL (3.5-5.0); Albumin Globulin Ratio 1.5 (1.0-2.8); Alkaline Phosphatase 79 U/L (38-126); Aspartate Aminotransferase 25 IU/L (17-59); BUN Creatinine Ratio 20.9 (6-22); Bilirubin Total 0.3 mg/dL (0.2-1.3); Blood Urea Nitrogen 23 mg/dL (9-20); Carbon Dioxide 22 mmol/L (22-32); Chloride 103 mmol/L (98-107); Estimated Glomerular Filt Rate > 60.0 mL/min (>60); Globulin 2.8 g/dL (1.7-4.1); Glucose 267 mg/dL (80-110); HEMOLYSIS < 15 (0-50); Potassium 4.6 mmol/L (3.4-5.1); Sodium 138 mmol/L (137-145); Total Protein 6.9 g/dL (6.3-8.2)
[2017-12-04 08:31] VITALS: BP 133/69; PULSE 83; RESP 16; TEMP 36.6; O2SAT 99
--- NOTE | 2017-12-04 08:53 | P.PNONC_ITS ---
Diagnosis (1) Colon cancer Diagnosis: 12/04/17 08:47 1. 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 Initial biopsy performed on 01/29/2017. Grade 2 disease. MSI stable. Subsequent surgical resection on 03/13/2017. The primary tumor measured 37 x 32 x 21 mm in diameter. Grade 1 disease. The tumor extended through the muscularis propria, without extension to the peritoneal surface. One of 7 regional lymph nodes was positive for metastatic disease. Staged IIIB (T3 N1 M0 ). Pre resection CEA level 24.9 on 01/30/2017. Baseline CT scan of the abdomen and pelvis on 01/30/2017. Negative CT scan of the chest on 03/07/2017. 2. Pancreatic injury during surgery, delaying initiation of postoperative adjuvant chemotherapy. Currently cycle 5/12 of FOLFOX. Currently infusion 5/6 of IV iron sucrose. History of Present Illness History Of Present Illness: 12/04/17 08:53 Vadim returns today for continued follow-up. He has remained medically stable over the past 2 weeks. ?I do not feel bad at all?. He acknowledges being tired at times. His appetite is generally good. He is looking forward to the reversal of his colostomy. The peripheral neuropathy in his hands and feet remains stable. He is otherwise pain-free. Home Medications and Allergies Home Medications Medication Instructions Recorded Confirmed Type atorvastatin [Lipitor] 20 mg PO QDAY #0 01/29/17 12/04/17 History insulin glargine [Basaglar KwikPen 10 unit SQ QDAY #0 05/01/17 History U-100 Insulin] biotin 1 PO DAILY 11/20/17 History glipizide 1 tab PO BID 12/04/17 12/04/17 History Allergies Allergy/AdvReac Type Severity Reaction Status Date / Time No Allergy Information Allergy Unknown Unverified 10/10/17 13:06 Available [NO ALLERGY INFORMATION AVAILABLE] Exam Vital Signs: Vital Signs - 24 hr 12/04/17 08:31 Temperature 98 F Pulse Rate 83 Respiratory Rate 16 Blood Pressure 133/69 H Pulse Oximetry 99 Exam: Blood pressure 133/69. Temperature 98.0?. Pulse rate 83. O2 saturation on room air was 99%. Weight 204 lb. The oropharynx was again clear. There was no scleral icterus. Both lungs were clear to auscultation and percussion. There was no percussible spinal tenderness. There was no palpable rib cage tenderness. No pathologic lymphadenopathy was noted today in the neck, chin, supraclavicular or axillary areas. His heart sounds were fine. His abdomen was soft, nontender and without palpable hepatomegaly. There was no lower extremity edema. Results - Labs 12/04/17 08:03 12/04/17 08:03 Laboratory Last Values WBC 5.3 X10^3/uL (4.5-11.0) 12/04/17 08:03 RBC 3.62 X10^6/uL (4.5-5.9) L 12/04/17 08:03 Hgb 11.1 g/dL (13.5-17.5) L 12/04/17 08:03 Hct 31.7 % (41-53) L 12/04/17 08:03 MCV 87.5 fL (80-100) 12/04/17 08:03 MCH 30.7 PG (26-34) 12/04/17 08:03 MCHC 35.0 % (30-36) 12/04/17 08:03 RDW 18.9 % (11.6-14.8) H 12/04/17 08:03 Plt Count 113 X10^3/uL (150-400) L 12/04/17 08:03 Neut % (Auto) 67.2 % (50-75) 12/04/17 08:03 Lymph % (Auto) 20.6 % (25-40) L 12/04/17 08:03 [place] % (Auto) 10.0 % (3-14) 12/04/17 08:03 Eos % (Auto) 1.4 % (2-4) L 12/04/17 08:03 Baso % (Auto) 0.8 % (0-2) 12/04/17 08:03 Neut # (Auto) 3600 /uL (7202-1037) 12/04/17 08:03 Sodium 138 mmol/L (137-145) 12/04/17 08:03 Potassium 4.6 mmol/L (3.4-5.1) 12/04/17 08:03 Chloride 103 mmol/L (98-107) 12/04/17 08:03 Carbon Dioxide 22 mmol/L (22-32) 12/04/17 08:03 BUN 23 mg/dL (9-20) H 12/04/17 08:03 Creatinine 1.10 mg/dL (0.66-1.25) 12/04/17 08:03 Estimated GFR > 60.0 mL/min (>60) 12/04/17 08:03 BUN/Creatinine Ratio 20.9 (6-22) 12/04/17 08:03 Glucose 267 mg/dL (80-110) H 12/04/17 08:03 Calcium 9.0 mg/dL (8.4-10.2) 12/04/17 08:03 Iron 75 ug/dL (49-181) 11/20/17 08:14 TIBC 396 ug/mL (261-462) 11/20/17 08:14 % Saturation 19 % (20-50) L 11/20/17 08:14 Transferrin 307 mg/dL (206-381) 11/20/17 08:14 Ferritin 181.0 ng/mL (17.9-464) 11/20/17 08:14 Total Bilirubin 0.3 mg/dL (0.2-1.3) 12/04/17 08:03 AST 25 IU/L (17-59) 12/04/17 08:03 ALT 40 IU/L (21-72) 12/04/17 08:03 Alkaline Phosphatase 79 U/L (38-126) 12/04/17 08:03 Total Protein 6.9 g/dL (6.3-8.2) 12/04/17 08:03 Albumin 4.1 g/dL (3.5-5.0) 12/04/17 08:03 Globulin 2.8 g/dL (1.7-4.1) 12/04/17 08:03 Albumin/Globulin Ratio 1.5 (1.0-2.8) 12/04/17 08:03 I noted today that his ferritin level has improved from 13.3 on October 04 to 181 on October 31. His iron saturation however has declined from 20% on October 04 to 19% on November 20 Impression Vadim looks good today. He remains medically stable. He has a green light to go ahead today with both his FOLFOX and IV iron sucrose. I will see him back in follow-up in 2 weeks.
[2017-12-04] MEDS: IRON SUCROSE 200 MG in SODIUM CHLORIDE 0.9% 100 ML 220 ML IV (09:35)
[2017-12-04] MEDS: LORazepam 0.5 MG TABLET PO (09:35)
[2017-12-04] MEDS: DEXAMETHASONE 12 MG in SODIUM CHLORIDE 0.9% 50 ML 212 ML IV (10:19)
[2017-12-04] MEDS: FOSAPREPITANT 150 MG in SODIUM CHLORIDE 0.9% 150 ML 300 ML IV (10:46)
[2017-12-04] MEDS: ONDANSETRON 16 MG in SODIUM CHLORIDE 0.9% 50 ML 232 ML IV (11:29)
[2017-12-04] MEDS: DEXTROSE 5 % IN WATER 100 ML 21 ML IV (12:00)
[2017-12-04] MEDS: DEXTROSE 5% IV ×2 (12:25)
[2017-12-04] MEDS: LEUCOVORIN IV (12:25)
[2017-12-04] MEDS: OXALIPLATIN IV (12:25)
[2017-12-04] MEDS: ISOOSMOTIC VEHICLE IV (15:00)
[2017-12-04] MEDS: FLUOROURACIL IV (15:00)
--- NOTE | 2017-12-04 15:32 | PC.NURSE ---
cadd pump settings verified with RN [place] in training. Line flushed and equashield attached. Pump started without issue. Pt advised to rtn at 1330 Wed for disconnect
--- NOTE | 2017-12-18 08:16 | ONC.NAV ---
*Provided patient his Last Chemo card.
[2017-12-18 08:22] LABS: Add Manual Diff / Slide Review NO; Basophils Percent Auto 0.9 % (0-2); Eosinophils Percent Auto 1.5 % (2-4); Hematocrit 31.5 % (41-53); Lymphocytes Percent Auto 23.4 % (25-40); Mean Corpuscular Hemoglobin 31.6 PG (26-34); Mean Corpuscular Volume 90.2 fL (80-100); Monocytes Percent Auto 9.7 % (3-14); Neutrophils Absolute Auto 3100 /uL (3000-5900); Neutrophils Percent Auto 64.5 % (50-75); Platelet Count 122 X10^3/uL (150-400); Red Blood Cell Count 3.49 X10^6/uL (4.5-5.9); Red Cell Distribution Width 18.9 % (11.6-14.8); White Blood Cell Count 4.8 X10^3/uL (4.5-11.0)
[2017-12-18 08:29] VITALS: BP 139/78; PULSE 73; RESP 15; TEMP 36.7; O2SAT 99
[2017-12-18 08:32] LABS: Alanine Aminotransferase 38 IU/L (21-72); Albumin 3.9 g/dL (3.5-5.0); Albumin Globulin Ratio 1.4 (1.0-2.8); Alkaline Phosphatase 86 U/L (38-126); Aspartate Aminotransferase 22 IU/L (17-59); Bilirubin Total 0.3 mg/dL (0.2-1.3); Blood Urea Nitrogen 21 mg/dL (9-20); Carbon Dioxide 21 mmol/L (22-32); Chloride 107 mmol/L (98-107); Estimated Glomerular Filt Rate > 60.0 mL/min (>60); Globulin 2.8 g/dL (1.7-4.1); Glucose 166 mg/dL (80-110); HEMOLYSIS < 15 (0-50); Potassium 4.1 mmol/L (3.4-5.1); Sodium 141 mmol/L (137-145); Total Protein 6.7 g/dL (6.3-8.2)
--- NOTE | 2017-12-18 08:45 | ONC.GEN.PN ---
Diagnosis (1) Colon cancer Diagnosis: 12/04/17 08:47 1. 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 Initial biopsy performed on 01/29/2017. Grade 2 disease. MSI stable. Subsequent surgical resection on 03/13/2017. The primary tumor measured 37 x 32 x 21 mm in diameter. Grade 1 disease. The tumor extended through the muscularis propria, without extension to the peritoneal surface. One of 7 regional lymph nodes was positive for metastatic disease. Staged IIIB (T3 N1 M0). Pre resection CEA level 24.9 on 01/30/2017. Baseline CT scan of the abdomen and pelvis on 01/30/2017. Negative CT scan of the chest on 03/07/2017. 2. Pancreatic injury during surgery, delaying initiation of postoperative adjuvant chemotherapy. Currently cycle #6/12 of FOLFOX. Currently infusion#6/6 of IV iron sucrose. 12/18/17 08:45 History of Present Illness History Of Present Illness: 12/18/17 08:45 Vadim returns today for routine follow-up and continuation of his IV chemotherapy. He continues to deny any loose stools. His appetite is generally good. There has been very minimal decline recently in his overall strength and stamina. He is frequently pursuing an afternoon nap. His peripheral neuropathy is slightly worse, compared with his status 2 weeks ago. He remains intolerant to cold liquids for the first 10 days of his cycle. Home Medications and Allergies Home Medications Medication Instructions Recorded Confirmed Type atorvastatin [Lipitor] 20 mg PO QDAY #0 01/29/17 12/04/17 History insulin glargine [Basaglar KwikPen 10 unit SQ QDAY #0 05/01/17 12/18/17 History U-100 Insulin] biotin 1 mcg PO DAILY 11/20/17 12/18/17 History glipizide 1 tab PO BID 12/04/17 12/04/17 History Allergies Allergy/AdvReac Type Severity Reaction Status Date / Time No Known Drug Allergies Allergy Verified 12/18/17 08:44 Exam Vital Signs: Vital Signs - 24 hr 12/18/17 08:29 Temperature 98.0 F Pulse Rate 73 Respiratory Rate 15 Blood Pressure 139/78 H Pulse Oximetry 99 Exam: Blood pressure 139/78. Temperature 98.0?. Pulse rate 73. O2 saturation on room air was 99%. Weight 205 lb. The oropharynx today was clear. There was no scleral icterus. Both lungs were clear to auscultation and percussion. There was no direct percussible spinal tenderness. No pathologic lymphadenopathy was noted today in the neck, chin, supraclavicular or axillary areas. His heart sounds were fine. His abdomen was soft, nontender and without palpable hepatomegaly. There was no distal edema. Results - Labs 12/18/17 08:01 12/18/17 08:01 Laboratory Last Values WBC 4.8 X10^3/uL (4.5-11.0) 12/18/17 08:01 RBC 3.49 X10^6/uL (4.5-5.9) L 12/18/17 08:01 Hgb 11.0 g/dL (13.5-17.5) L 12/18/17 08:01 Hct 31.5 % (41-53) L 12/18/17 08:01 MCV 90.2 fL (80-100) 12/18/17 08:01 MCH 31.6 PG (26-34) 12/18/17 08:01 MCHC 35.0 % (30-36) 12/18/17 08:01 RDW 18.9 % (11.6-14.8) H 12/18/17 08:01 Plt Count 122 X10^3/uL (150-400) L 12/18/17 08:01 Neut % (Auto) 64.5 % (50-75) 12/18/17 08:01 Lymph % (Auto) 23.4 % (25-40) L 12/18/17 08:01 [place] % (Auto) 9.7 % (3-14) 12/18/17 08:01 Eos % (Auto) 1.5 % (2-4) L 12/18/17 08:01 Baso % (Auto) 0.9 % (0-2) 12/18/17 08:01 Neut # (Auto) 3100 /uL (1276-1877) 12/18/17 08:01 Sodium 141 mmol/L (137-145) 12/18/17 08:01 Potassium 4.1 mmol/L (3.4-5.1) 12/18/17 08:01 Chloride 107 mmol/L (98-107) 12/18/17 08:01 Carbon Dioxide 21 mmol/L (22-32) L 12/18/17 08:01 BUN 21 mg/dL (9-20) H 12/18/17 08:01 Creatinine 1.00 mg/dL (0.66-1.25) 12/18/17 08:01 Estimated GFR > 60.0 mL/min (>60) 12/18/17 08:01 BUN/Creatinine Ratio 21.0 (6-22) 12/18/17 08:01 Glucose 166 mg/dL (80-110) H 12/18/17 08:01 Calcium 9.0 mg/dL (8.4-10.2) 12/18/17 08:01 Iron 75 ug/dL (49-181) 11/20/17 08:14 TIBC 396 ug/mL (261-462) 11/20/17 08:14 % Saturation 19 % (20-50) L 11/20/17 08:14 Transferrin 307 mg/dL (206-381) 11/20/17 08:14 Ferritin 181.0 ng/mL (17.9-464) 11/20/17 08:14 Total Bilirubin 0.3 mg/dL (0.2-1.3) 12/18/17 08:01 AST 22 IU/L (17-59) 12/18/17 08:01 ALT 38 IU/L (21-72) 12/18/17 08:01 Alkaline Phosphatase 86 U/L (38-126) 12/18/17 08:01 Total Protein 6.7 g/dL (6.3-8.2) 12/18/17 08:01 Albumin 3.9 g/dL (3.5-5.0) 12/18/17 08:01 Globulin 2.8 g/dL (1.7-4.1) 12/18/17 08:01 Albumin/Globulin Ratio 1.4 (1.0-2.8) 12/18/17 08:01 Impression Temp again looks good today. He has a green light to go ahead today with his 6th regimen of FOLFOX and his final infusion of IV iron sucrose. I will see him back in follow-up in 2 weeks. I will recheck his percent iron saturation at that time.
[2017-12-18] MEDS: LORazepam 0.5 MG TABLET PO (09:24)
[2017-12-18] MEDS: IRON SUCROSE 200 MG in SODIUM CHLORIDE 0.9% 100 ML 220 ML IV (09:28)
[2017-12-18] MEDS: ONDANSETRON 16 MG in SODIUM CHLORIDE 0.9% 50 ML 232 ML IV (10:13)
[2017-12-18] MEDS: DEXAMETHASONE 12 MG in SODIUM CHLORIDE 0.9% 50 ML 212 ML IV (10:33)
[2017-12-18] MEDS: FOSAPREPITANT 150 MG in SODIUM CHLORIDE 0.9% 150 ML 300 ML IV (10:53)
[2017-12-18] MEDS: DEXTROSE 5% IV ×2 (11:38→11:39)
[2017-12-18] MEDS: OXALIPLATIN IV (11:38)
[2017-12-18] MEDS: DEXTROSE 5 % IN WATER 100 ML 21 ML IV (11:38)
[2017-12-18] MEDS: LEUCOVORIN IV (11:39)
[2017-12-18] MEDS: FLUOROURACIL IV (14:27)
[2017-12-18] MEDS: ISOOSMOTIC VEHICLE IV (14:27)
--- NOTE | 2017-12-18 14:53 | PC.NURSE ---
cadd pump settings verified with JAVIER Borja attached, line flushed and infusion started and confirmed to be running with pt. Pt advised to rtn on at 1345 for DC of pump
[2017-12-20 14:32] VITALS: BP 139/70; PULSE 73; RESP 16; TEMP 36.7; O2SAT 100
--- NOTE | 2017-12-20 14:35 | PC.NURSE ---
Vadim came in for pump D/C. Pump was empty and battery removed. Vitals stable. Denied any complaints. Ostomy bag intact. D/C ambulatory with return apt.
[2018-01-01 09:14] LABS: Add Manual Diff / Slide Review NO; Basophils Percent Auto 0.8 % (0-2); Eosinophils Percent Auto 1.1 % (2-4); Hematocrit 32.2 % (41-53); Hemoglobin 11.2 g/dL (13.5-17.5); Lymphocytes Percent Auto 20.8 % (25-40); Mean Corpuscular HGB Conc 34.9 % (30-36); Mean Corpuscular Hemoglobin 32.1 PG (26-34); Mean Corpuscular Volume 91.8 fL (80-100); Monocytes Percent Auto 9.7 % (3-14); Neutrophils Absolute Auto 3300 /uL (3000-5900); Neutrophils Percent Auto 67.6 % (50-75); Platelet Count 117 X10^3/uL (150-400); White Blood Cell Count 4.9 X10^3/uL (4.5-11.0)
--- NOTE | 2018-01-01 09:23 | ONC.GEN.PN ---
Diagnosis (1) Colon cancer Diagnosis: 12/04/17 08:47 1. 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 Initial biopsy performed on 01/29/2017. Grade 2 disease. MSI stable. Subsequent surgical resection on 03/13/2017. The primary tumor measured 37 x 32 x 21 mm in diameter. Grade 1 disease. The tumor extended through the muscularis propria, without extension to the peritoneal surface. One of 7 regional lymph nodes was positive for metastatic disease. Staged IIIB (T3 N1 M0). Pre resection CEA level 24.9 on 01/30/2017. Baseline CT scan of the abdomen and pelvis on 01/30/2017. Negative CT scan of the chest on 03/07/2017. 2. Pancreatic injury during surgery, delaying initiation of postoperative adjuvant chemotherapy. Currently cycle #7/12 of FOLFOX. 12/18/17 08:45 01/01/18 09:23 History of Present Illness History Of Present Illness: 01/01/18 09:24 Gabriel returns today for routine follow-up. Since last seen 2 weeks ago, there has been minimal progression in his peripheral neuropathy. He continues to note dysfunctional taste buds. He denies any diarrhea. He is pain-free. He reports that his overall strength and stamina are ?okay?. He has recently pursued a physical therapy referral in [place]. Home Medications and Allergies Home Medications Medication Instructions Recorded Confirmed Type atorvastatin [Lipitor] 20 mg PO QDAY #0 01/29/17 12/04/17 History insulin glargine [Basaglar KwikPen 10 unit SQ QDAY #0 05/01/17 12/18/17 History U-100 Insulin] biotin 1 mcg PO DAILY 11/20/17 12/18/17 History glipizide 1 tab PO BID 12/04/17 12/04/17 History fluorouracil 2,400 mg IV NOW #1 device 12/18/17 Rx Allergies Allergy/AdvReac Type Severity Reaction Status Date / Time No Known Drug Allergies Allergy Verified 12/18/17 08:44 Exam Exam: Blood pressure 145/69. Temperature 97.2?. Pulse rate 78. O2 saturation on room air was 100%. The oropharynx today was completely clear. There was no scleral icterus. Both lungs were clear to auscultation and percussion. No pathologic lymphadenopathy was noted today in the neck, chin, supraclavicular or axillary areas. His heart sounds were fine. His abdomen was soft, nontender and without palpable hepatomegaly. There was no lower extremity fluid retention. Results - Labs 01/01/18 08:45 12/18/17 08:01 Laboratory Last Values WBC 4.9 X10^3/uL (4.5-11.0) 01/01/18 08:45 RBC 3.50 X10^6/uL (4.5-5.9) L 01/01/18 08:45 Hgb 11.2 g/dL (13.5-17.5) L 01/01/18 08:45 Hct 32.2 % (41-53) L 01/01/18 08:45 MCV 91.8 fL (80-100) 01/01/18 08:45 MCH 32.1 PG (26-34) 01/01/18 08:45 MCHC 34.9 % (30-36) 01/01/18 08:45 RDW 19.0 % (11.6-14.8) H 01/01/18 08:45 Plt Count 117 X10^3/uL (150-400) L 01/01/18 08:45 Neut % (Auto) 67.6 % (50-75) 01/01/18 08:45 Lymph % (Auto) 20.8 % (25-40) L 01/01/18 08:45 [place] % (Auto) 9.7 % (3-14) 01/01/18 08:45 Eos % (Auto) 1.1 % (2-4) L 01/01/18 08:45 Baso % (Auto) 0.8 % (0-2) 01/01/18 08:45 Neut # (Auto) 3300 /uL (6368-4361) 01/01/18 08:45 Sodium 141 mmol/L (137-145) 12/18/17 08:01 Potassium 4.1 mmol/L (3.4-5.1) 12/18/17 08:01 Chloride 107 mmol/L (98-107) 12/18/17 08:01 Carbon Dioxide 21 mmol/L (22-32) L 12/18/17 08:01 BUN 21 mg/dL (9-20) H 12/18/17 08:01 Creatinine 1.00 mg/dL (0.66-1.25) 12/18/17 08:01 Estimated GFR > 60.0 mL/min (>60) 12/18/17 08:01 BUN/Creatinine Ratio 21.0 (6-22) 12/18/17 08:01 Glucose 166 mg/dL (80-110) H 12/18/17 08:01 Calcium 9.0 mg/dL (8.4-10.2) 12/18/17 08:01 Iron 75 ug/dL (49-181) 11/20/17 08:14 TIBC 396 ug/mL (261-462) 11/20/17 08:14 % Saturation 19 % (20-50) L 11/20/17 08:14 Transferrin 307 mg/dL (206-381) 11/20/17 08:14 Ferritin 181.0 ng/mL (17.9-464) 11/20/17 08:14 Total Bilirubin 0.3 mg/dL (0.2-1.3) 12/18/17 08:01 AST 22 IU/L (17-59) 12/18/17 08:01 ALT 38 IU/L (21-72) 12/18/17 08:01 Alkaline Phosphatase 86 U/L (38-126) 12/18/17 08:01 Total Protein 6.7 g/dL (6.3-8.2) 12/18/17 08:01 Albumin 3.9 g/dL (3.5-5.0) 12/18/17 08:01 Globulin 2.8 g/dL (1.7-4.1) 12/18/17 08:01 Albumin/Globulin Ratio 1.4 (1.0-2.8) 12/18/17 08:01 Impression Gabriel looks fine today. Pending confirmation of today's CBC results, he has a green light to proceed with cycle #7 of FOLFOX chemotherapy. I will see him back in the clinic in 2 weeks.
[2018-01-01 09:29] LABS: Alanine Aminotransferase 37 IU/L (21-72); Albumin Globulin Ratio 1.4 (1.0-2.8); Alkaline Phosphatase 85 U/L (38-126); Aspartate Aminotransferase 27 IU/L (17-59); BUN Creatinine Ratio 17.5 (6-22); Bilirubin Total 0.5 mg/dL (0.2-1.3); Blood Urea Nitrogen 21 mg/dL (9-20); Calcium 9.2 mg/dL (8.4-10.2); Carbon Dioxide 22 mmol/L (22-32); Chloride 109 mmol/L (98-107); Estimated Glomerular Filt Rate > 60.0 mL/min (>60); Globulin 2.8 g/dL (1.7-4.1); Glucose 151 mg/dL (80-110); HEMOLYSIS < 15 (0-50); Potassium 4.1 mmol/L (3.4-5.1); Sodium 140 mmol/L (137-145); Total Protein 6.8 g/dL (6.3-8.2)
[2018-01-01 09:32] LABS: HEMOLYSIS < 15 (0-50); Iron 109 ug/dL (49-181)
[2018-01-01 09:42] LABS: Percent Iron Saturation 29 % (20-50); Total Iron Binding Capacity 380 ug/dL (261-462); Transferrin 297 mg/dL (206-381)
[2018-01-01 09:45] VITALS: BP 145/69; PULSE 78; RESP 16; TEMP 36.2; O2SAT 100
[2018-01-01] MEDS: LORazepam 0.5 MG TABLET PO (09:50)
[2018-01-01] MEDS: DEXAMETHASONE 12 MG in SODIUM CHLORIDE 0.9% 50 ML 212 ML IV (09:54)
[2018-01-01] MEDS: FOSAPREPITANT 150 MG in SODIUM CHLORIDE 0.9% 150 ML 300 ML IV (10:17)
[2018-01-01] MEDS: ONDANSETRON 16 MG in SODIUM CHLORIDE 0.9% 50 ML 232 ML IV (10:55)
[2018-01-01] MEDS: LEUCOVORIN IV (11:36)
[2018-01-01] MEDS: DEXTROSE 5% IV ×2 (11:36)
[2018-01-01] MEDS: OXALIPLATIN IV (11:36)
[2018-01-01] MEDS: DEXTROSE 5 % IN WATER 100 ML 21 ML IV (11:44)
--- NOTE | 2018-01-01 13:07 | ONC.NAV ---
Description: Insurance co-pay change w/[employer] Activity: Met with pt prior to his provider and infusion/tx visit to discuss the temporary co-pay he will have today due to our not currently having an oncologist who is actively credentialed with [employer]. [employer] is is secondary insurance, and has been picking up all the costs not paid by Medicare. He became very irate, yelling loudly out in the lobby area. DEMURRAGE CLERK continued to reassure him that the hospital is working very hard to complete the credentialing of our providers, and that this appointment will be the only one where this will be an issue. DEMURRAGE CLERK then called [employer] to clarify how much, if any, of pt's 20% remaining from Medicare that they would pay, since Dr. Rocha is not currently active with [employer]. The circulation sales representative examined his policy, and determined that Dr. Rocha would be considered a Non-Network provider, and thus [employer] would cover 60% and pt would be responsible for 40% of the out of pocket cost. DEMURRAGE CLERK then called [facility] to ensure that we could have his order for his pump redone under [employer] [facility], due to her being credentialed with [employer]. [facility] triage nurse then f/u with infusion damari and Tea to obtain the new order.
[2018-01-01] MEDS: ISOOSMOTIC VEHICLE IV (14:27)
[2018-01-01] MEDS: FLUOROURACIL IV (14:27)
--- NOTE | 2018-01-01 14:52 | PC.NURSE ---
cadd pump setting/dose verified with NRCARLO. [employer] attached, line flushed and pump started without issue. Pt to rtn to clinic on 01/03 @ 1300 for disconnect
[2018-01-03 13:16] VITALS: BP 140/65; PULSE 79; RESP 18; TEMP 36.8; O2SAT 97
--- NOTE | 2018-01-03 13:17 | PC.NURSE ---
CADD pump disconnected, medication bag empty and pt reports it started beeping and I took out the battery like I'm suppose to. Denies chest pain and SOB. Reports feeling good.
[2018-01-15 08:49] LABS: Add Manual Diff / Slide Review NO; Basophils Percent Auto 0.9 % (0-2); Eosinophils Percent Auto 1.1 % (2-4); Hematocrit 32.8 % (41-53); Hemoglobin 11.4 g/dL (13.5-17.5); Lymphocytes Percent Auto 22.7 % (25-40); Mean Corpuscular HGB Conc 34.9 % (30-36); Mean Corpuscular Hemoglobin 32.7 PG (26-34); Mean Corpuscular Volume 93.9 fL (80-100); Monocytes Percent Auto 11.1 % (3-14); Neutrophils Absolute Auto 3400 /uL (3000-5900); Neutrophils Percent Auto 64.2 % (50-75); Platelet Count 121 X10^3/uL (150-400); Red Blood Cell Count 3.49 X10^6/uL (4.5-5.9); Red Cell Distribution Width 18.2 % (11.6-14.8); White Blood Cell Count 5.3 X10^3/uL (4.5-11.0)
[2018-01-15 08:56] VITALS: BP 134/63; PULSE 72; RESP 15; TEMP 36.9; O2SAT 99
[2018-01-15 09:01] LABS: Alanine Aminotransferase 34 IU/L (21-72); Albumin 4.1 g/dL (3.5-5.0); Albumin Globulin Ratio 1.5 (1.0-2.8); Alkaline Phosphatase 79 U/L (38-126); Aspartate Aminotransferase 25 IU/L (17-59); BUN Creatinine Ratio 17.3 (6-22); Bilirubin Total 0.4 mg/dL (0.2-1.3); Blood Urea Nitrogen 19 mg/dL (9-20); Calcium 9.3 mg/dL (8.4-10.2); Carbon Dioxide 21 mmol/L (22-32); Chloride 107 mmol/L (98-107); Estimated Glomerular Filt Rate > 60.0 mL/min (>60); Globulin 2.8 g/dL (1.7-4.1); Glucose 215 mg/dL (80-110); HEMOLYSIS < 15 (0-50); Potassium 4.4 mmol/L (3.4-5.1); Sodium 140 mmol/L (137-145); Total Protein 6.9 g/dL (6.3-8.2)
--- NOTE | 2018-01-15 09:20 | ONC.APRN.PN ---
Assessment and Plan (1) Colon cancer Current visit: No Status: Acute 01/15/18 09:27 Vadim is tolerating FOLFOX chemotherapy quite well with only grade 1 neuropathy in his fingertips. CBC and CMP unremarkable. CEA is pending at time of dictation. Patient overall is feeling well, he remains active. We will move forward with cycle 8. Of 12 FOLFOX chemotherapy today. Return to clinic in 2 weeks for FOLFOX 9. Of 12 provider visit CBC CMP. Discussed with the patient today certainly consult with the surgeon regarding reversal of ostomy however he will have to be far enough out from chemotherapy to have very stable counts and overall recovered from chemo. 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 Subsequently he underwent surgical resection March 13, 2017. One of 7 regional lymph nodes was positive for metastatic disease. Treatment with FOLFOX was initiated 10/09/2017. he presents today for cycle 8/12 FOLFOX administered q14 days. Vadim has no new complaints on exam today. He continues to note some numbness/pain in his fingertips when he reaches into the fridge. Symptoms worse immediately after FOLFOX improves until next infusion. Otherwise activity tolerance is good, still riding his bike although not as long. No cough, fever, chills. Very infrequent mild nausea which resolved on its own. Appetite is stable. No change with bowel habits/colostomy. No skin changes. No chest pain, shortness of breath. No unexplained bleeding or bruising. He continues to smoke marijuana so I dont go crazy. Vadim was found to have NORTH he received iron sucrose infusions totaling 1000mg. he would like to see surgery as soon as possible after chemo to reverse colostomy. TIMELINE: 1) Colorectal Cancer. Stage IIIB (pT3, pN1, M0). Diagnosis: 01/29/2017. Biopsy of the sigmoid mass. Pathology confirming a moderately differentiated adenocarcinoma. MSI stable (intact nuclear expression: MLH1, MSH 2, MSH6, and PMS2). 01/29/2017. Biopsy of left colon polyp at 50 cm. Portions of fragmented colorectal mucosa involved by moderately differentiated adenocarcinoma. 03/13/2017. Pathology confirming a invasive adenocarcinoma in the distal sigmoid colon measuring 37 x 32 x 21 mm. Low grade. Tumor extended through the muscularis propria into the adventitia without extending to the peritoneal surface. Resected margins including the proximal distal and circumferential negative. No LV I seen. No tumor deposit seen. 47 regional lymph nodes were identified 1 positive for disease without extranodal extension. Clinical staging workup, pretreatment: 01/30/2017. CEA 24.9. 01/29/2017. Colonoscopy. Circumferential mass at the distal sigmoid colon extending to the rectosigmoid junction. Exact distance from the anal verge confirmed with a rigid sigmoidoscopy following the colonoscopic procedure. Most inferior aspect of the mass encountered 818 cm from the anal verge. The lesion extended proximally from there. 01/30/2017. CT abdomen and pelvis with contrast. In the rectum abnormal mural thickening rectosigmoid junction inferiorly to the middle lower thirds of the rectum. Maximum thickness 19 x 20 mm. Craniocaudal length of thickening is 70-80 meters. Liver spleen normal in size and enhancement. No retroperitoneal mesenteric or inguinal adenopathy. 02/13/2017. MRI pelvis without contrast (done at [facility] Tumor Location: Tumor is located between 23 and 18 cm above anal verge. Anal verge to distal tumor margin 18 cm. Tumor is not at or below the pupil rectal sling. Distance of lower extent of tumor from top of anal sphincter 15 cm. Craniocaudad length of tumor is 4.5 cm. Extramural depth of invasion and MRT category: Extramural depth of invasion is 7 mm T category equal to T3c. Extramural venous invasion positive. Suspicious mesorectal lymph node seen left O: Image 11 series 3. Suspicious extra mesorectal lymph node to the right and above tumor agent 5-10 series 3 and images 2-7 of series 5. 03/07/2017. CT chest with contrast. No evidence of metastatic disease. Prognosis: 05/01/2017. [facility] prognostic online tool: 3 year recurrence free survival after adjuvant chemotherapy 85.9%. Overall survival at 5 years after adjuvant chemotherapy 83.4% (SEER 5 yr OS for stage IIIB = 46.3%) 2) Diabetes, diagnosed ~10 years ago. Currently on Lantus and glipizide. Patient is also on lisinopril. Patient is not aware of any neuropathy, Recent EGFR on 01/30/2017 at >60 ml/min. 3) Hypercholesterolemia. 4) Malignant melanoma: First episode back, ~15 years ago. Second lesion right cheek ~ 5 years ago. Managed, surveillence with dermatology. - Patient Self-Reported Symptoms SR Constitution: Weight loss/gain SR ears, nose, mouth, throat issues: Mouth sores SR Skin issues: Dry skin, Nail changes SR Musculoskeletal issues: Cold hands or feet, Joint pain or swelling SR Neuro issues: Difficulty balancing SR Endocrine issues: Cold intolerance Results - Labs 01/15/18 08:20 01/15/18 08:20 Laboratory Last Values WBC 5.3 X10^3/uL (4.5-11.0) 01/15/18 08:20 RBC 3.49 X10^6/uL (4.5-5.9) L 01/15/18 08:20 Hgb 11.4 g/dL (13.5-17.5) L 01/15/18 08:20 Hct 32.8 % (41-53) L 01/15/18 08:20 MCV 93.9 fL (80-100) 01/15/18 08:20 MCH 32.7 PG (26-34) 01/15/18 08:20 MCHC 34.9 % (30-36) 01/15/18 08:20 RDW 18.2 % (11.6-14.8) H 01/15/18 08:20 Plt Count 121 X10^3/uL (150-400) L 01/15/18 08:20 Neut % (Auto) 64.2 % (50-75) 01/15/18 08:20 Lymph % (Auto) 22.7 % (25-40) L 01/15/18 08:20 [place] % (Auto) 11.1 % (3-14) 01/15/18 08:20 Eos % (Auto) 1.1 % (2-4) L 01/15/18 08:20 Baso % (Auto) 0.9 % (0-2) 01/15/18 08:20 Neut # (Auto) 3400 /uL (2959-3436) 01/15/18 08:20 Sodium 140 mmol/L (137-145) 01/15/18 08:20 Potassium 4.4 mmol/L (3.4-5.1) 01/15/18 08:20 Chloride 107 mmol/L (98-107) 01/15/18 08:20 Carbon Dioxide 21 mmol/L (22-32) L 01/15/18 08:20 BUN 19 mg/dL (9-20) 01/15/18 08:20 Creatinine 1.10 mg/dL (0.66-1.25) 01/15/18 08:20 Estimated GFR > 60.0 mL/min (>60) 01/15/18 08:20 BUN/Creatinine Ratio 17.3 (6-22) 01/15/18 08:20 Glucose 215 mg/dL (80-110) H 01/15/18 08:20 Calcium 9.3 mg/dL (8.4-10.2) 01/15/18 08:20 Iron 109 ug/dL (49-181) 01/01/18 08:45 TIBC 380 ug/dL (261-462) 01/01/18 08:45 % Saturation 29 % (20-50) 01/01/18 08:45 Transferrin 297 mg/dL (206-381) 01/01/18 08:45 Ferritin 181.0 ng/mL (17.9-464) 11/20/17 08:14 Total Bilirubin 0.4 mg/dL (0.2-1.3) 01/15/18 08:20 AST 25 IU/L (17-59) 01/15/18 08:20 ALT 34 IU/L (21-72) 01/15/18 08:20 Alkaline Phosphatase 79 U/L (38-126) 01/15/18 08:20 Total Protein 6.9 g/dL (6.3-8.2) 01/15/18 08:20 Albumin 4.1 g/dL (3.5-5.0) 01/15/18 08:20 Globulin 2.8 g/dL (1.7-4.1) 01/15/18 08:20 Albumin/Globulin Ratio 1.5 (1.0-2.8) 01/15/18 08:20 - Imaging Additional studies: Procedures Bypass Sigmoid Colon to Cutaneous, Open Approach (03/13/17) Closed [endoscopic] biopsy of large intestine (11/17/11) Control Bleeding in Peritoneal Cavity, Open Approach (03/13/17) Drainage of Peritoneal Cavity with Drainage Device, Percutaneous Approach (05/11/17) Endoscopic polypectomy of large intestine (06/12/12) Excision of Mesenteric Lymphatic, Open Approach, Diagnostic (03/13/17) Insertion of Infusion Device into Superior Vena Cava, Percutaneous Approach (03/13/17) Inspection of Lower Intestinal Tract, Via Natural or Artificial Opening Endoscopic (03/13/17) Resection of Rectum, Open Approach (03/13/17) Resection of Sigmoid Colon, Open Approach (03/13/17) Transfusion of Nonautologous Red Blood Cells into Central Vein, Percutaneous Approach (03/13/17) [Endoscopic] polypectomy of rectum (11/17/11) Home Medications and Allergies Home Medications Medication Instructions Recorded Confirmed Type atorvastatin [Lipitor] 20 mg PO QDAY #0 01/29/17 01/15/18 History insulin glargine [Basaglar KwikPen 10 unit SQ QDAY #0 05/01/17 01/15/18 History U-100 Insulin] biotin 1 mcg PO DAILY 11/20/17 01/15/18 History glipizide 1 tab PO BID 12/04/17 01/15/18 History fluorouracil 2,400 mg IV NOW #1 device 12/18/17 Rx fluorouracil 2,400 mg IV NOW #1 device 01/01/18 Rx Allergies Allergy/AdvReac Type Severity Reaction Status Date / Time No Known Drug Allergies Allergy Verified 12/18/17 08:44 Exam Vital signs: Last Vital Signs Temp 98.5 F 01/15/18 08:56 Pulse 72 01/15/18 08:56 Resp 15 01/15/18 08:56 BP 134/63 H 01/15/18 08:56 Pulse Ox 99 01/15/18 08:56 Narrative: well appearing - Constitutional positive no acute distress, positive average body habitus - Routine HEENT Exam ENT: Present: mucous membranes moist, oropharynx clear - Routine Neck Exam Present: supple. Absent: lymphadenopathy - Routine Respiratory Exam Present: Clear to auscultation bilaterally. Absent: rales, rhonchi, wheezes - Routine Cardiovascular Exam Present: RRR, S1, S2 - Routine Abdominal Exam Present: soft, normoactive bowel sounds, ostomy. Absent: tenderness, distended, organomegaly - Routine Extremities Exam Absent: edema, calf tenderness - Routine Skin Exam Present: intact, normal turgor. Absent: petechiae, rash - Routine Neurological Exam Present: alert, oriented X3 - Routine Psychiatric Exam Present: normal affect
[2018-01-15] MEDS: LORazepam 0.5 MG TABLET PO (09:23)
--- NOTE | 2018-01-15 09:26 | P.PNONC_ITS ---
Assessment and Plan (1) Colon cancer Current visit: No Status: Acute 01/15/18 09:27 Vadim is tolerating FOLFOX chemotherapy quite well with only grade 1 neuropathy in his fingertips. CBC and CMP unremarkable. CEA is pending at time of dictation. Patient overall is feeling well, he remains active. We will move forward with cycle 8. Of 12 FOLFOX chemotherapy today. Return to clinic in 2 weeks for FOLFOX 9. Of 12 provider visit CBC CMP. Discussed with the patient today certainly consult with the surgeon regarding reversal of ostomy however he will have to be far enough out from chemotherapy to have very stable counts and overall recovered from chemo. 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 Subsequently he underwent surgical resection March 13, 2017. One of 7 regional lymph nodes was positive for metastatic disease. Treatment with FOLFOX was initiated 10/09/2017. he presents today for cycle 8/12 FOLFOX administered q14 days. Vadim has no new complaints on exam today. He continues to note some numbness/ pain in his fingertips when he reaches into the fridge. Symptoms worse immediately after FOLFOX improves until next infusion. Otherwise activity tolerance is good, still riding his bike although not as long. No cough, fever , chills. Very infrequent mild nausea which resolved on its own. Appetite is stable. No change with bowel habits/colostomy. No skin changes. No chest pain , shortness of breath. No unexplained bleeding or bruising. He continues to smoke marijuana so I dont go crazy. Vadim was found to have NORTH he received iron sucrose infusions totaling 1000mg. he would like to see surgery as soon as possible after chemo to reverse colostomy. TIMELINE: 1) Colorectal Cancer. Stage IIIB (pT3, pN1, M0). Diagnosis: 01/29/2017. Biopsy of the sigmoid mass. Pathology confirming a moderately differentiated adenocarcinoma. MSI stable (intact nuclear expression: MLH1, MSH 2, MSH6, and PMS2). 01/29/2017. Biopsy of left colon polyp at 50 cm. Portions of fragmented colorectal mucosa involved by moderately differentiated adenocarcinoma. 03/13/2017. Pathology confirming a invasive adenocarcinoma in the distal sigmoid colon measuring 37 x 32 x 21 mm. Low grade. Tumor extended through the muscularis propria into the adventitia without extending to the peritoneal surface. Resected margins including the proximal distal and circumferential negative. No LV I seen. No tumor deposit seen. 47 regional lymph nodes were identified 1 positive for disease without extranodal extension. Clinical staging workup, pretreatment: 01/30/2017. CEA 24.9. 01/29/2017. Colonoscopy. Circumferential mass at the distal sigmoid colon extending to the rectosigmoid junction. Exact distance from the anal verge confirmed with a rigid sigmoidoscopy following the colonoscopic procedure. Most inferior aspect of the mass encountered 818 cm from the anal verge. The lesion extended proximally from there. 01/30/2017. CT abdomen and pelvis with contrast. In the rectum abnormal mural thickening rectosigmoid junction inferiorly to the middle lower thirds of the rectum. Maximum thickness 19 x 20 mm. Craniocaudal length of thickening is 70- 80 meters. Liver spleen normal in size and enhancement. No retroperitoneal mesenteric or inguinal adenopathy. 02/13/2017. MRI pelvis without contrast (done at [facility]) . Tumor Location: Tumor is located between 23 and 18 cm above anal verge. Anal verge to distal tumor margin 18 cm. Tumor is not at or below the pupil rectal sling. Distance of lower extent of tumor from top of anal sphincter 15 cm. Craniocaudad length of tumor is 4.5 cm. Extramural depth of invasion and MRT category: Extramural depth of invasion is 7 mm T category equal to T3c. Extramural venous invasion positive. Suspicious mesorectal lymph node seen left O: Image 11 series 3. Suspicious extra mesorectal lymph node to the right and above tumor agent 5-10 series 3 and images 2-7 of series 5. 03/07/2017. CT chest with contrast. No evidence of metastatic disease. Prognosis: 05/01/2017. [facility] prognostic online tool: 3 year recurrence free survival after adjuvant chemotherapy 85.9%. Overall survival at 5 years after adjuvant chemotherapy 83.4% (SEER 5 yr OS for stage IIIB = 46.3%) 2) Diabetes, diagnosed ~10 years ago. Currently on Lantus and glipizide. Patient is also on lisinopril. Patient is not aware of any neuropathy, Recent EGFR on 01/30/2017 at >60 ml/min. 3) Hypercholesterolemia. 4) Malignant melanoma: First episode back, ~15 years ago. Second lesion right cheek ~ 5 years ago. Managed, surveillence with dermatology. - Patient Self-Reported Symptoms SR Constitution: Weight loss/gain SR ears, nose, mouth, throat issues: Mouth sores SR Skin issues: Dry skin, Nail changes SR Musculoskeletal issues: Cold hands or feet, Joint pain or swelling SR Neuro issues: Difficulty balancing SR Endocrine issues: Cold intolerance Results - Labs 01/15/18 08:20 01/15/18 08:20 Laboratory Last Values WBC 5.3 X10^3/uL (4.5-11.0) 01/15/18 08:20 RBC 3.49 X10^6/uL (4.5-5.9) L 01/15/18 08:20 Hgb 11.4 g/dL (13.5-17.5) L 01/15/18 08:20 Hct 32.8 % (41-53) L 01/15/18 08:20 MCV 93.9 fL (80-100) 01/15/18 08:20 MCH 32.7 PG (26-34) 01/15/18 08:20 MCHC 34.9 % (30-36) 01/15/18 08:20 RDW 18.2 % (11.6-14.8) H 01/15/18 08:20 Plt Count 121 X10^3/uL (150-400) L 01/15/18 08:20 Neut % (Auto) 64.2 % (50-75) 01/15/18 08:20 Lymph % (Auto) 22.7 % (25-40) L 01/15/18 08:20 [place] % (Auto) 11.1 % (3-14) 01/15/18 08:20 Eos % (Auto) 1.1 % (2-4) L 01/15/18 08:20 Baso % (Auto) 0.9 % (0-2) 01/15/18 08:20 Neut # (Auto) 3400 /uL (1397-6085) 01/15/18 08:20 Sodium 140 mmol/L (137-145) 01/15/18 08:20 Potassium 4.4 mmol/L (3.4-5.1) 01/15/18 08:20 Chloride 107 mmol/L (98-107) 01/15/18 08:20 Carbon Dioxide 21 mmol/L (22-32) L 01/15/18 08:20 BUN 19 mg/dL (9-20) 01/15/18 08:20 Creatinine 1.10 mg/dL (0.66-1.25) 01/15/18 08:20 Estimated GFR > 60.0 mL/min (>60) 01/15/18 08:20 BUN/Creatinine Ratio 17.3 (6-22) 01/15/18 08:20 Glucose 215 mg/dL (80-110) H 01/15/18 08:20 Calcium 9.3 mg/dL (8.4-10.2) 01/15/18 08:20 Iron 109 ug/dL (49-181) 01/01/18 08:45 TIBC 380 ug/dL (261-462) 01/01/18 08:45 % Saturation 29 % (20-50) 01/01/18 08:45 Transferrin 297 mg/dL (206-381) 01/01/18 08:45 Ferritin 181.0 ng/mL (17.9-464) 11/20/17 08:14 Total Bilirubin 0.4 mg/dL (0.2-1.3) 01/15/18 08:20 AST 25 IU/L (17-59) 01/15/18 08:20 ALT 34 IU/L (21-72) 01/15/18 08:20 Alkaline Phosphatase 79 U/L (38-126) 01/15/18 08:20 Total Protein 6.9 g/dL (6.3-8.2) 01/15/18 08:20 Albumin 4.1 g/dL (3.5-5.0) 01/15/18 08:20 Globulin 2.8 g/dL (1.7-4.1) 01/15/18 08:20 Albumin/Globulin Ratio 1.5 (1.0-2.8) 01/15/18 08:20 - Imaging Additional studies: Procedures Bypass Sigmoid Colon to Cutaneous, Open Approach (03/13/17) Closed [endoscopic] biopsy of large intestine (11/17/11) Control Bleeding in Peritoneal Cavity, Open Approach (03/13/17) Drainage of Peritoneal Cavity with Drainage Device, Percutaneous Approach (05/11) Endoscopic polypectomy of large intestine (06/12/12) Excision of Mesenteric Lymphatic, Open Approach, Diagnostic (03/13/17) Insertion of Infusion Device into Superior Vena Cava, Percutaneous Approach (06/17) Inspection of Lower Intestinal Tract, Via Natural or Artificial Opening Endoscopic (03/13/17) Resection of Rectum, Open Approach (03/13/17) Resection of Sigmoid Colon, Open Approach (03/13/17) Transfusion of Nonautologous Red Blood Cells into Central Vein, Percutaneous Approach (03/13/17) [Endoscopic] polypectomy of rectum (11/17/11) Home Medications and Allergies Home Medications Medication Instructions Recorded Confirmed Type atorvastatin [Lipitor] 20 mg PO QDAY #0 01/29/17 01/15/18 History insulin glargine [Basaglar KwikPen 10 unit SQ QDAY #0 05/01/17 01/15/18 History U-100 Insulin] biotin 1 mcg PO DAILY 11/20/17 01/15/18 History glipizide 1 tab PO BID 12/04/17 01/15/18 History fluorouracil 2,400 mg IV NOW #1 device 12/18/17 Rx fluorouracil 2,400 mg IV NOW #1 device 01/01/18 Rx Allergies Allergy/AdvReac Type Severity Reaction Status Date / Time No Known Drug Allergies Allergy Verified 12/18/17 08:44 Exam Vital signs: Last Vital Signs Temp 98.5 F 01/15/18 08:56 Pulse 72 01/15/18 08:56 Resp 15 01/15/18 08:56 BP 134/63 H 01/15/18 08:56 Pulse Ox 99 01/15/18 08:56 Narrative: well appearing - Constitutional positive no acute distress, positive average body habitus - Routine HEENT Exam ENT: Present: mucous membranes moist, oropharynx clear - Routine Neck Exam Present: supple. Absent: lymphadenopathy - Routine Respiratory Exam Present: Clear to auscultation bilaterally. Absent: rales, rhonchi, wheezes - Routine Cardiovascular Exam Present: RRR, S1, S2 - Routine Abdominal Exam Present: soft, normoactive bowel sounds, ostomy. Absent: tenderness, distended , organomegaly - Routine Extremities Exam Absent: edema, calf tenderness - Routine Skin Exam Present: intact, normal turgor. Absent: petechiae, rash - Routine Neurological Exam Present: alert, oriented X3 - Routine Psychiatric Exam Present: normal affect
[2018-01-15] MEDS: DEXAMETHASONE 12 MG in SODIUM CHLORIDE 0.9% 50 ML 212 ML IV (09:44)
[2018-01-15] MEDS: FOSAPREPITANT 150 MG in SODIUM CHLORIDE 0.9% 150 ML 300 ML IV (10:06)
[2018-01-15] MEDS: ONDANSETRON 16 MG in SODIUM CHLORIDE 0.9% 50 ML 232 ML IV (10:47)
[2018-01-15] MEDS: DEXTROSE 5 % IN WATER 100 ML 20 ML IV (11:38)
[2018-01-15] MEDS: OXALIPLATIN IV (11:43)
[2018-01-15] MEDS: LEUCOVORIN IV (11:43)
[2018-01-15] MEDS: DEXTROSE 5% IV ×2 (11:43)
[2018-01-15] MEDS: FLUOROURACIL IV (14:21)
[2018-01-15] MEDS: ISOOSMOTIC VEHICLE IV (14:21)
--- NOTE | 2018-01-15 14:47 | PC.NURSE ---
CADD PUMP SETTING VERIFIED WITH OG HIDALGO. LINE FLUSHED CAP, EQUASHIELD, AND DRESSING CHANGED FROM MEDIPORE TO OPSITE. PUMP STARTED WITHOUT ISSUES AND VERIFIED TO BE RUNNING WITH PT. PT TO RTN SUNDAY @ 1230 FOR DISCONNECT
[2018-01-29 09:00] LABS: Add Manual Diff / Slide Review NO; Eosinophils Percent Auto 1.2 % (2-4); Hematocrit 31.2 % (41-53); Mean Corpuscular HGB Conc 35.4 % (30-36); Mean Corpuscular Hemoglobin 33.7 PG (26-34); Mean Corpuscular Volume 95.2 fL (80-100); Monocytes Percent Auto 10.4 % (3-14); Neutrophils Absolute Auto 3000 /uL (3000-5900); Neutrophils Percent Auto 63.4 % (50-75); Platelet Count 105 X10^3/uL (150-400); Red Blood Cell Count 3.28 X10^6/uL (4.5-5.9); White Blood Cell Count 4.7 X10^3/uL (4.5-11.0)
[2018-01-29 09:14] VITALS: BP 130/79; PULSE 69; RESP 18; TEMP 36.8; O2SAT 99
[2018-01-29 09:17] LABS: Alanine Aminotransferase 27 IU/L (21-72); Albumin Globulin Ratio 1.5 (1.0-2.8); Alkaline Phosphatase 84 U/L (38-126); Aspartate Aminotransferase 24 IU/L (17-59); BUN Creatinine Ratio 15.8 (6-22); Bilirubin Total 0.4 mg/dL (0.2-1.3); Blood Urea Nitrogen 19 mg/dL (9-20); Calcium 9.2 mg/dL (8.4-10.2); Carbon Dioxide 23 mmol/L (22-32); Chloride 106 mmol/L (98-107); Estimated Glomerular Filt Rate > 60.0 mL/min (>60); Globulin 2.6 g/dL (1.7-4.1); Glucose 248 mg/dL (80-110); HEMOLYSIS < 15 (0-50); Potassium 4.4 mmol/L (3.4-5.1); Sodium 138 mmol/L (137-145); Total Protein 6.6 g/dL (6.3-8.2)
--- NOTE | 2018-01-29 10:10 | ONC.APRN.PN ---
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 Subsequently he underwent surgical resection March 13, 2017. One of 7 regional lymph nodes was positive for metastatic disease. Treatment with FOLFOX was initiated 10/09/2017. he presents today for cycle 9/12 FOLFOX administered q14 days. Vadim has no new complaints on exam today. 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 Most noticeable 2 days after chemo then seems to improve a bit until next chemo. Still has a sore mouth I reviewed with him to DC mouth wash and toothpaste. DC electric toothbrush and purchase a soft bristle toothbrush. Use baking soda and salt mixture as a mouth wash, I printed instructions from [employer] for the patient. On exam today he was noted to have unilateral left lower extremity edema. Mild. Patient states this is new however he did not report it as he thinks it is related to a plantar fasciitis issue he has had in the past. However he has not had swelling before. Specifically the swelling is in his ankle perhaps slightly above. Reassuringly he had no calf tenderness, erythema. Homans sign was negative. However, in a patient with stage III cancer currently under treatment he is at risk for thrombosis. I will send him today for a venous Doppler ultrasound of left lower extremity prior to chemotherapy today. CBC, CMP unremarkable. If ultrasound is negative we will move forward today with FOLFOX 9/12. CBC, CMP unremarkable today. Return to clinic in 2 weeks for provider visit, CBC, CMP, FOLFOX /. CEA next visit, it has been steadily trending down. Patient verbalizes understanding and agrees with the above plan of care. 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 Subsequently he underwent surgical resection March 13, 2017. One of 7 regional lymph nodes was positive for metastatic disease. Treatment with FOLFOX was initiated 10/09/2017. he presents today for cycle 9/12 FOLFOX administered q14 days. Vadim has no new complaints on exam today. He continues to note some numbness/pain in his fingertips when he reaches into the fridge. Symptoms worse immediately after FOLFOX improves until next infusion. Also still c/o sore mouth although states he checks his mouth daily and has not noted any open areas or sores. Is using biotene. Otherwise activity tolerance is good, still riding his bike although not as long. No cough, fever, chills. Very infrequent mild nausea which resolved on its own. Appetite is stable. No change with bowel habits/colostomy. No skin changes. No chest pain, shortness of breath. No unexplained bleeding or bruising. He continues to smoke marijuana so I dont go crazy. Vadim was found to have NORTH he received iron sucrose infusions totaling 1000mg. He would like to see surgery as soon as possible after chemo to reverse colostomy. I again informed him his counts will need to improve and stabilize prior to surgery. He is very anxious I recommend he schedule consult with surgeon so he can hear directly from the surgeon criteria for moving forward with reversing colostomy. TIMELINE: 1) Colorectal Cancer. Stage IIIB (pT3, pN1, M0). Diagnosis: 01/29/2017. Biopsy of the sigmoid mass. Pathology confirming a moderately differentiated adenocarcinoma. MSI stable (intact nuclear expression: MLH1, MSH 2, MSH6, and PMS2). 01/29/2017. Biopsy of left colon polyp at 50 cm. Portions of fragmented colorectal mucosa involved by moderately differentiated adenocarcinoma. 03/13/2017. Pathology confirming a invasive adenocarcinoma in the distal sigmoid colon measuring 37 x 32 x 21 mm. Low grade. Tumor extended through the muscularis propria into the adventitia without extending to the peritoneal surface. Resected margins including the proximal distal and circumferential negative. No LV I seen. No tumor deposit seen. 47 regional lymph nodes were identified 1 positive for disease without extranodal extension. Clinical staging workup, pretreatment: 01/30/2017. CEA 24.9. 01/29/2017. Colonoscopy. Circumferential mass at the distal sigmoid colon extending to the rectosigmoid junction. Exact distance from the anal verge confirmed with a rigid sigmoidoscopy following the colonoscopic procedure. Most inferior aspect of the mass encountered 818 cm from the anal verge. The lesion extended proximally from there. 01/30/2017. CT abdomen and pelvis with contrast. In the rectum abnormal mural thickening rectosigmoid junction inferiorly to the middle lower thirds of the rectum. Maximum thickness 19 x 20 mm. Craniocaudal length of thickening is 70-80 meters. Liver spleen normal in size and enhancement. No retroperitoneal mesenteric or inguinal adenopathy. 02/13/2017. MRI pelvis without contrast (done at [facility] [place] Tumor Location: Tumor is located between 23 and 18 cm above anal verge. Anal verge to distal tumor margin 18 cm. Tumor is not at or below the pupil rectal sling. Distance of lower extent of tumor from top of anal sphincter 15 cm. Craniocaudad length of tumor is 4.5 cm. Extramural depth of invasion and MRT category: Extramural depth of invasion is 7 mm T category equal to T3c. Extramural venous invasion positive. Suspicious mesorectal lymph node seen left O: Image 11 series 3. Suspicious extra mesorectal lymph node to the right and above tumor agent 5-10 series 3 and images 2-7 of series 5. 03/07/2017. CT chest with contrast. No evidence of metastatic disease. Prognosis: 05/01/2017. [facility] prognostic online tool: 3 year recurrence free survival after adjuvant chemotherapy 85.9%. Overall survival at 5 years after adjuvant chemotherapy 83.4% (SEER 5 yr OS for stage IIIB = 46.3%) 2) Diabetes, diagnosed ~10 years ago. Currently on Lantus and glipizide. Patient is also on lisinopril. Patient is not aware of any neuropathy, Recent EGFR on 01/30/2017 at >60 ml/min. 3) Hypercholesterolemia. 4) Malignant melanoma: First episode back, ~15 years ago. Second lesion right cheek ~ 5 years ago. Managed, surveillence with dermatology. - Patient Self-Reported Symptoms SR Constitution: Weight loss/gain SR ears, nose, mouth, throat issues: Mouth sores SR Skin issues: Dry skin, Nail changes SR Musculoskeletal issues: Cold hands or feet, Joint pain or swelling SR Neuro issues: Difficulty balancing SR Endocrine issues: Cold intolerance Results - Labs 01/29/18 08:49 01/29/18 08:49 Laboratory Last Values WBC 4.7 X10^3/uL (4.5-11.0) 01/29/18 08:49 RBC 3.28 X10^6/uL (4.5-5.9) L 01/29/18 08:49 Hgb 11.0 g/dL (13.5-17.5) L 01/29/18 08:49 Hct 31.2 % (41-53) L 01/29/18 08:49 MCV 95.2 fL (80-100) 01/29/18 08:49 MCH 33.7 PG (26-34) 01/29/18 08:49 MCHC 35.4 % (30-36) 01/29/18 08:49 RDW 17.0 % (11.6-14.8) H 01/29/18 08:49 Plt Count 105 X10^3/uL (150-400) L 01/29/18 08:49 Neut % (Auto) 63.4 % (50-75) 01/29/18 08:49 Lymph % (Auto) 24.0 % (25-40) L 01/29/18 08:49 [place] % (Auto) 10.4 % (3-14) 01/29/18 08:49 Eos % (Auto) 1.2 % (2-4) L 01/29/18 08:49 Baso % (Auto) 1.0 % (0-2) 01/29/18 08:49 Neut # (Auto) 3000 /uL (2777-8395) 01/29/18 08:49 Sodium 138 mmol/L (137-145) 01/29/18 08:49 Potassium 4.4 mmol/L (3.4-5.1) 01/29/18 08:49 Chloride 106 mmol/L (98-107) 01/29/18 08:49 Carbon Dioxide 23 mmol/L (22-32) 01/29/18 08:49 BUN 19 mg/dL (9-20) 01/29/18 08:49 Creatinine 1.20 mg/dL (0.66-1.25) 01/29/18 08:49 Estimated GFR > 60.0 mL/min (>60) 01/29/18 08:49 BUN/Creatinine Ratio 15.8 (6-22) 01/29/18 08:49 Glucose 248 mg/dL (80-110) H 01/29/18 08:49 Calcium 9.2 mg/dL (8.4-10.2) 01/29/18 08:49 Iron 109 ug/dL (49-181) 01/01/18 08:45 TIBC 380 ug/dL (261-462) 01/01/18 08:45 % Saturation 29 % (20-50) 01/01/18 08:45 Transferrin 297 mg/dL (206-381) 01/01/18 08:45 Ferritin 181.0 ng/mL (17.9-464) 11/20/17 08:14 Total Bilirubin 0.4 mg/dL (0.2-1.3) 01/29/18 08:49 AST 24 IU/L (17-59) 01/29/18 08:49 ALT 27 IU/L (21-72) 01/29/18 08:49 Alkaline Phosphatase 84 U/L (38-126) 01/29/18 08:49 Total Protein 6.6 g/dL (6.3-8.2) 01/29/18 08:49 Albumin 4.0 g/dL (3.5-5.0) 01/29/18 08:49 Globulin 2.6 g/dL (1.7-4.1) 01/29/18 08:49 Albumin/Globulin Ratio 1.5 (1.0-2.8) 01/29/18 08:49 Carcinoembryonic Ag 2.0 ng/mL (0.1-3.0) 01/15/18 08:20 - Imaging Additional studies: Procedures Bypass Sigmoid Colon to Cutaneous, Open Approach (03/13/17) Closed [endoscopic] biopsy of large intestine (11/17/11) Control Bleeding in Peritoneal Cavity, Open Approach (03/13/17) Drainage of Peritoneal Cavity with Drainage Device, Percutaneous Approach (05/11/17) Endoscopic polypectomy of large intestine (06/12/12) Excision of Mesenteric Lymphatic, Open Approach, Diagnostic (03/13/17) Insertion of Infusion Device into Superior Vena Cava, Percutaneous Approach (03/13/17) Inspection of Lower Intestinal Tract, Via Natural or Artificial Opening Endoscopic (03/13/17) Resection of Rectum, Open Approach (03/13/17) Resection of Sigmoid Colon, Open Approach (03/13/17) Transfusion of Nonautologous Red Blood Cells into Central Vein, Percutaneous Approach (03/13/17) [Endoscopic] polypectomy of rectum (11/17/11) Home Medications and Allergies Home Medications Medication Instructions Recorded Confirmed Type atorvastatin [Lipitor] 20 mg PO QDAY #0 01/29/17 01/15/18 History insulin glargine [Basaglar KwikPen 10 unit SQ QDAY #0 05/01/17 01/15/18 History U-100 Insulin] biotin 1 mcg PO DAILY 11/20/17 01/15/18 History glipizide 1 tab PO BID 12/04/17 01/15/18 History fluorouracil 2,400 mg IV NOW #1 device 12/18/17 Rx fluorouracil 2,400 mg IV NOW #1 device 01/01/18 Rx Allergies Allergy/AdvReac Type Severity Reaction Status Date / Time No Known Drug Allergies Allergy Verified 12/18/17 08:44 Exam Vital signs: Last Vital Signs Temp 98.2 F 01/29/18 09:14 Pulse 69 01/29/18 09:14 Resp 18 01/29/18 09:14 BP 130/79 H 01/29/18 09:14 Pulse Ox 99 01/29/18 09:14 Narrative: non toxic appearing - Constitutional positive no acute distress - Routine HEENT Exam Eye: Present: conjunctivae pink. Absent: conjunctival icterus, scleral injection ENT: Present: mucous membranes moist, oropharynx clear Comments: no open areas, no plaque - Routine Neck Exam Present: supple. Absent: lymphadenopathy - Routine Respiratory Exam Present: Clear to auscultation bilaterally. Absent: rales, rhonchi, wheezes - Routine Cardiovascular Exam Present: RRR, S1, S2. Absent: murmur, gallop, rubs, JVD - Routine Abdominal Exam Present: soft, normoactive bowel sounds. Absent: tenderness, distended, organomegaly - Routine Extremities Exam Present: edema, pulses intact, normal capillary refill. Absent: calf tenderness, Rochelle's sign Comments: trace pre tibial LLE edema - Routine Skin Exam Present: intact, normal turgor. Absent: petechiae, rash - Routine Neurological Exam Present: alert, oriented X3 - Routine Psychiatric Exam Present: normal affect
--- NOTE | 2018-01-29 10:18 | P.PNONC_ITS ---
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 Subsequently he underwent surgical resection March 13, 2017. One of 7 regional lymph nodes was positive for metastatic disease. Treatment with FOLFOX was initiated 10/09/2017. he presents today for cycle 9/12 FOLFOX administered q14 days. Vadim has no new complaints on exam today. 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 Most noticeable 2 days after chemo then seems to improve a bit until next chemo. Still has a sore mouth I reviewed with him to DC mouth wash and toothpaste. DC electric toothbrush and purchase a soft bristle toothbrush. Use baking soda and salt mixture as a mouth wash, I printed instructions from [employer] for the patient. On exam today he was noted to have unilateral left lower extremity edema. Mild. Patient states this is new however he did not report it as he thinks it is related to a plantar fasciitis issue he has had in the past. However he has not had swelling before. Specifically the swelling is in his ankle perhaps slightly above. Reassuringly he had no calf tenderness, erythema. Homans sign was negative. However, in a patient with stage III cancer currently under treatment he is at risk for thrombosis. I will send him today for a venous Doppler ultrasound of left lower extremity prior to chemotherapy today. CBC, CMP unremarkable. If ultrasound is negative we will move forward today with FOLFOX 9/12. CBC, CMP unremarkable today. Return to clinic in 2 weeks for provider visit, CBC, CMP, FOLFOX /. CEA next visit, it has been steadily trending down. Patient verbalizes understanding and agrees with the above plan of care. 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 Subsequently he underwent surgical resection March 13, 2017. One of 7 regional lymph nodes was positive for metastatic disease. Treatment with FOLFOX was initiated 10/09/2017. he presents today for cycle 9/12 FOLFOX administered q14 days. Vadim has no new complaints on exam today. He continues to note some numbness/ pain in his fingertips when he reaches into the fridge. Symptoms worse immediately after FOLFOX improves until next infusion. Also still c/o sore mouth although states he checks his mouth daily and has not noted any open areas or sores. Is using biotene. Otherwise activity tolerance is good, still riding his bike although not as long. No cough, fever, chills. Very infrequent mild nausea which resolved on its own. Appetite is stable. No change with bowel habits/colostomy. No skin changes. No chest pain, shortness of breath. No unexplained bleeding or bruising. He continues to smoke marijuana so I dont go crazy. Vadim was found to have NORTH he received iron sucrose infusions totaling 1000mg. He would like to see surgery as soon as possible after chemo to reverse colostomy. I again informed him his counts will need to improve and stabilize prior to surgery. He is very anxious I recommend he schedule consult with surgeon so he can hear directly from the surgeon criteria for moving forward with reversing colostomy. TIMELINE: 1) Colorectal Cancer. Stage IIIB (pT3, pN1, M0). Diagnosis: 01/29/2017. Biopsy of the sigmoid mass. Pathology confirming a moderately differentiated adenocarcinoma. MSI stable (intact nuclear expression: MLH1, MSH 2, MSH6, and PMS2). 01/29/2017. Biopsy of left colon polyp at 50 cm. Portions of fragmented colorectal mucosa involved by moderately differentiated adenocarcinoma. 03/13/2017. Pathology confirming a invasive adenocarcinoma in the distal sigmoid colon measuring 37 x 32 x 21 mm. Low grade. Tumor extended through the muscularis propria into the adventitia without extending to the peritoneal surface. Resected margins including the proximal distal and circumferential negative. No LV I seen. No tumor deposit seen. 47 regional lymph nodes were identified 1 positive for disease without extranodal extension. Clinical staging workup, pretreatment: 01/30/2017. CEA 24.9. 01/29/2017. Colonoscopy. Circumferential mass at the distal sigmoid colon extending to the rectosigmoid junction. Exact distance from the anal verge confirmed with a rigid sigmoidoscopy following the colonoscopic procedure. Most inferior aspect of the mass encountered 818 cm from the anal verge. The lesion extended proximally from there. 01/30/2017. CT abdomen and pelvis with contrast. In the rectum abnormal mural thickening rectosigmoid junction inferiorly to the middle lower thirds of the rectum. Maximum thickness 19 x 20 mm. Craniocaudal length of thickening is 70- 80 meters. Liver spleen normal in size and enhancement. No retroperitoneal mesenteric or inguinal adenopathy. 02/13/2017. MRI pelvis without contrast (done at [facility]) . Tumor Location: Tumor is located between 23 and 18 cm above anal verge. Anal verge to distal tumor margin 18 cm. Tumor is not at or below the pupil rectal sling. Distance of lower extent of tumor from top of anal sphincter 15 cm. Craniocaudad length of tumor is 4.5 cm. Extramural depth of invasion and MRT category: Extramural depth of invasion is 7 mm T category equal to T3c. Extramural venous invasion positive. Suspicious mesorectal lymph node seen left O: Image 11 series 3. Suspicious extra mesorectal lymph node to the right and above tumor agent 5-10 series 3 and images 2-7 of series 5. 03/07/2017. CT chest with contrast. No evidence of metastatic disease. Prognosis: 05/01/2017. [facility] prognostic online tool: 3 year recurrence free survival after adjuvant chemotherapy 85.9%. Overall survival at 5 years after adjuvant chemotherapy 83.4% (SEER 5 yr OS for stage IIIB = 46.3%) 2) Diabetes, diagnosed ~10 years ago. Currently on Lantus and glipizide. Patient is also on lisinopril. Patient is not aware of any neuropathy, Recent EGFR on 01/30/2017 at >60 ml/min. 3) Hypercholesterolemia. 4) Malignant melanoma: First episode back, ~15 years ago. Second lesion right cheek ~ 5 years ago. Managed, surveillence with dermatology. - Patient Self-Reported Symptoms SR Constitution: Weight loss/gain SR ears, nose, mouth, throat issues: Mouth sores SR Skin issues: Dry skin, Nail changes SR Musculoskeletal issues: Cold hands or feet, Joint pain or swelling SR Neuro issues: Difficulty balancing SR Endocrine issues: Cold intolerance Results - Labs 01/29/18 08:49 01/29/18 08:49 Laboratory Last Values WBC 4.7 X10^3/uL (4.5-11.0) 01/29/18 08:49 RBC 3.28 X10^6/uL (4.5-5.9) L 01/29/18 08:49 Hgb 11.0 g/dL (13.5-17.5) L 01/29/18 08:49 Hct 31.2 % (41-53) L 01/29/18 08:49 MCV 95.2 fL (80-100) 01/29/18 08:49 MCH 33.7 PG (26-34) 01/29/18 08:49 MCHC 35.4 % (30-36) 01/29/18 08:49 RDW 17.0 % (11.6-14.8) H 01/29/18 08:49 Plt Count 105 X10^3/uL (150-400) L 01/29/18 08:49 Neut % (Auto) 63.4 % (50-75) 01/29/18 08:49 Lymph % (Auto) 24.0 % (25-40) L 01/29/18 08:49 Citrus % (Auto) 10.4 % (3-14) 01/29/18 08:49 Eos % (Auto) 1.2 % (2-4) L 01/29/18 08:49 Baso % (Auto) 1.0 % (0-2) 01/29/18 08:49 Neut # (Auto) 3000 /uL (5057-6218) 01/29/18 08:49 Sodium 138 mmol/L (137-145) 01/29/18 08:49 Potassium 4.4 mmol/L (3.4-5.1) 01/29/18 08:49 Chloride 106 mmol/L (98-107) 01/29/18 08:49 Carbon Dioxide 23 mmol/L (22-32) 01/29/18 08:49 BUN 19 mg/dL (9-20) 01/29/18 08:49 Creatinine 1.20 mg/dL (0.66-1.25) 01/29/18 08:49 Estimated GFR > 60.0 mL/min (>60) 01/29/18 08:49 BUN/Creatinine Ratio 15.8 (6-22) 01/29/18 08:49 Glucose 248 mg/dL (80-110) H 01/29/18 08:49 Calcium 9.2 mg/dL (8.4-10.2) 01/29/18 08:49 Iron 109 ug/dL (49-181) 01/01/18 08:45 TIBC 380 ug/dL (261-462) 01/01/18 08:45 % Saturation 29 % (20-50) 01/01/18 08:45 Transferrin 297 mg/dL (206-381) 01/01/18 08:45 Ferritin 181.0 ng/mL (17.9-464) 11/20/17 08:14 Total Bilirubin 0.4 mg/dL (0.2-1.3) 01/29/18 08:49 AST 24 IU/L (17-59) 01/29/18 08:49 ALT 27 IU/L (21-72) 01/29/18 08:49 Alkaline Phosphatase 84 U/L (38-126) 01/29/18 08:49 Total Protein 6.6 g/dL (6.3-8.2) 01/29/18 08:49 Albumin 4.0 g/dL (3.5-5.0) 01/29/18 08:49 Globulin 2.6 g/dL (1.7-4.1) 01/29/18 08:49 Albumin/Globulin Ratio 1.5 (1.0-2.8) 01/29/18 08:49 Carcinoembryonic Ag 2.0 ng/mL (0.1-3.0) 01/15/18 08:20 - Imaging Additional studies: Procedures Bypass Sigmoid Colon to Cutaneous, Open Approach (03/13/17) Closed [endoscopic] biopsy of large intestine (11/17/11) Control Bleeding in Peritoneal Cavity, Open Approach (03/13/17) Drainage of Peritoneal Cavity with Drainage Device, Percutaneous Approach (05/11) Endoscopic polypectomy of large intestine (06/12/12) Excision of Mesenteric Lymphatic, Open Approach, Diagnostic (03/13/17) Insertion of Infusion Device into Superior Vena Cava, Percutaneous Approach (06/17) Inspection of Lower Intestinal Tract, Via Natural or Artificial Opening Endoscopic (03/13/17) Resection of Rectum, Open Approach (03/13/17) Resection of Sigmoid Colon, Open Approach (03/13/17) Transfusion of Nonautologous Red Blood Cells into Central Vein, Percutaneous Approach (03/13/17) [Endoscopic] polypectomy of rectum (11/17/11) Home Medications and Allergies Home Medications Medication Instructions Recorded Confirmed Type atorvastatin [Lipitor] 20 mg PO QDAY #0 01/29/17 01/15/18 History insulin glargine [Basaglar KwikPen 10 unit SQ QDAY #0 05/01/17 01/15/18 History U-100 Insulin] biotin 1 mcg PO DAILY 11/20/17 01/15/18 History glipizide 1 tab PO BID 12/04/17 01/15/18 History fluorouracil 2,400 mg IV NOW #1 device 12/18/17 Rx fluorouracil 2,400 mg IV NOW #1 device 01/01/18 Rx Allergies Allergy/AdvReac Type Severity Reaction Status Date / Time No Known Drug Allergies Allergy Verified 12/18/17 08:44 Exam Vital signs: Last Vital Signs Temp 98.2 F 01/29/18 09:14 Pulse 69 01/29/18 09:14 Resp 18 01/29/18 09:14 BP 130/79 H 01/29/18 09:14 Pulse Ox 99 01/29/18 09:14 Narrative: non toxic appearing - Constitutional positive no acute distress - Routine HEENT Exam Eye: Present: conjunctivae pink. Absent: conjunctival icterus, scleral injection ENT: Present: mucous membranes moist, oropharynx clear Comments: no open areas, no plaque - Routine Neck Exam Present: supple. Absent: lymphadenopathy - Routine Respiratory Exam Present: Clear to auscultation bilaterally. Absent: rales, rhonchi, wheezes - Routine Cardiovascular Exam Present: RRR, S1, S2. Absent: murmur, gallop, rubs, JVD - Routine Abdominal Exam Present: soft, normoactive bowel sounds. Absent: tenderness, distended, organomegaly - Routine Extremities Exam Present: edema, pulses intact, normal capillary refill. Absent: calf tenderness , Rochelle's sign Comments: trace pre tibial LLE edema - Routine Skin Exam Present: intact, normal turgor. Absent: petechiae, rash - Routine Neurological Exam Present: alert, oriented X3 - Routine Psychiatric Exam Present: normal affect
[2018-01-29] MEDS: LORazepam 0.5 MG TABLET PO (11:53)
[2018-01-29] MEDS: FOSAPREPITANT 150 MG in SODIUM CHLORIDE 0.9% 150 ML 300 ML IV (11:53)
[2018-01-29] MEDS: ONDANSETRON HCL 8 MG TABLET 16 MG PO (11:53)
[2018-01-29] MEDS: DEXAMETHASONE 4 MG TABLET 12 MG PO (11:53)
[2018-01-29] MEDS: DEXTROSE 5% IV ×2 (13:09)
[2018-01-29] MEDS: OXALIPLATIN IV (13:09)
[2018-01-29] MEDS: LEUCOVORIN IV (13:09)
[2018-01-29] MEDS: DEXTROSE 5 % IN WATER 100 ML 21 ML IV (13:14)
[2018-01-29] MEDS: ISOOSMOTIC VEHICLE IV (15:26)
[2018-01-29] MEDS: FLUOROURACIL IV (15:26)
--- NOTE | 2018-01-29 16:09 | PC.NURSE ---
cadd pump settings verified with joi jacob Line flushes, equashield attached and pump connected and started w/o issue. Pt to return Thurs at 2p
--- NOTE | 2018-01-29 16:18 | PC.NURSE ---
Pt with consistently elevated blood sugars. Spoke with patient regarding this. He is on diabetic meds-insulin. Tea would like him to see his PCP Geneva Ramos regarding this as his meds may need to be adjusted. Pt states he will call and make an appt with Geneva.
--- NOTE | 2018-02-01 13:38 | PC.NURSE ---
Called in prescription for oral anticoagulation as in record. Puja potts did not get the original RX. Vadim's copay per month will be 175.00. I told him we would help him with the [employer] as there is no record of him accessing it yet. Lovenox shots go through Sunday morning then he will begin oral.
--- NOTE | 2018-02-12 08:07 | ONC.APRN.PN ---
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 Subsequently he underwent surgical resection March 13, 2017. One of 7 regional lymph nodes was positive for metastatic disease. Treatment with FOLFOX was initiated 10/09/2017. he presents today for cycle 10/12 FOLFOX administered q14 days. CBC, CMP stable. Blood sugars do continue to run high today 180. Previously patient was instructed to follow up with his primary care provider regarding elevated blood sugars patient reports he has elected to wait until after chemotherapy treatments are complete. WBC 4.6 hemoglobin 11.0 hematocrit 31.5. Platelets [id number]. CEA pending at time of dictation. We will proceed today with FOLFOX /. RTC in 14 days for FOLFOX 11/12 along with provider visit, cbc cmp. Continue apixaban 5 mg twice daily for treatment of DVT in left popliteal. Pt reports his copay is $175 I offered to change medication to warfarin noting it is still a very appropriate medication for trmt of DVT however requires closer monitoring, blood drwas etc. Pt elected to cont apixaban. 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 Subsequently he underwent surgical resection March 13, 2017. One of 7 regional lymph nodes was positive for metastatic disease. Treatment with FOLFOX was initiated 10/09/2017. he presents today for cycle 10/12 FOLFOX administered q14 days. 01/29/2018 pt presented with unilateral edema LLE venous doppler demonstrated nonocclusive DVT involving the left popliteal. treatment with LMWH initiated x 5 days pt then switched to apixaban 5mg BID. Today the pt reports the swelling in his LLE has diminished. he is not having any unexplained bleeding or bruising. He is taking apixaban 5 mg BID. Vadim has no new complaints on exam today. He continues to note some numbness/pain in his fingertips when he reaches into the fridge. Symptoms worse immediately after FOLFOX improves until next infusion. Denies fever or chills admits to cough but that from marijuana. Otherwise activity tolerance is good, still riding his bike although not as long. Very infrequent mild nausea which resolved on its own. Appetite is stable. No change with bowel habits/colostomy. No skin changes. No chest pain, shortness of breath. When inquired what symptom he was smoking marijuana for he replied so I dont go crazy. He would like to see surgery as soon as possible after chemo to reverse colostomy. I again informed him his counts will need to improve and stabilize prior to surgery. He is very anxious I recommend he schedule consult with surgeon so he can hear directly from the surgeon criteria for moving forward with reversing colostomy. TIMELINE: 1) Colorectal Cancer. Stage IIIB (pT3, pN1, M0). Diagnosis: 01/29/2017. Biopsy of the sigmoid mass. Pathology confirming a moderately differentiated adenocarcinoma. MSI stable (intact nuclear expression: MLH1, MSH 2, MSH6, and PMS2). 01/29/2017. Biopsy of left colon polyp at 50 cm. Portions of fragmented colorectal mucosa involved by moderately differentiated adenocarcinoma. 03/13/2017. Pathology confirming a invasive adenocarcinoma in the distal sigmoid colon measuring 37 x 32 x 21 mm. Low grade. Tumor extended through the muscularis propria into the adventitia without extending to the peritoneal surface. Resected margins including the proximal distal and circumferential negative. No LV I seen. No tumor deposit seen. 47 regional lymph nodes were identified 1 positive for disease without extranodal extension. Clinical staging workup, pretreatment: 01/30/2017. CEA 24.9. 01/29/2017. Colonoscopy. Circumferential mass at the distal sigmoid colon extending to the rectosigmoid junction. Exact distance from the anal verge confirmed with a rigid sigmoidoscopy following the colonoscopic procedure. Most inferior aspect of the mass encountered 818 cm from the anal verge. The lesion extended proximally from there. 01/30/2017. CT abdomen and pelvis with contrast. In the rectum abnormal mural thickening rectosigmoid junction inferiorly to the middle lower thirds of the rectum. Maximum thickness 19 x 20 mm. Craniocaudal length of thickening is 70-80 meters. Liver spleen normal in size and enhancement. No retroperitoneal mesenteric or inguinal adenopathy. 02/13/2017. MRI pelvis without contrast (done at [facility] Tumor Location: Tumor is located between 23 and 18 cm above anal verge. Anal verge to distal tumor margin 18 cm. Tumor is not at or below the pupil rectal sling. Distance of lower extent of tumor from top of anal sphincter 15 cm. Craniocaudad length of tumor is 4.5 cm. Extramural depth of invasion and MRT category: Extramural depth of invasion is 7 mm T category equal to T3c. Extramural venous invasion positive. Suspicious mesorectal lymph node seen left O: Image 11 series 3. Suspicious extra mesorectal lymph node to the right and above tumor agent 5-10 series 3 and images 2-7 of series 5. 03/07/2017. CT chest with contrast. No evidence of metastatic disease. Prognosis: 05/01/2017. [facility] prognostic online tool: 3 year recurrence free survival after adjuvant chemotherapy 85.9%. Overall survival at 5 years after adjuvant chemotherapy 83.4% (SEER 5 yr OS for stage IIIB = 46.3%) 2) Diabetes, diagnosed ~10 years ago. Currently on Lantus and glipizide. Patient is also on lisinopril. Patient is not aware of any neuropathy, Recent EGFR on 01/30/2017 at >60 ml/min. 3) Hypercholesterolemia. 4) Malignant melanoma: First episode back, ~15 years ago. Second lesion right cheek ~ 5 years ago. Managed, surveillence with dermatology. - Patient Self-Reported Symptoms SR Constitution: Weight loss/gain SR ears, nose, mouth, throat issues: Mouth sores SR Skin issues: Dry skin, Nail changes SR Musculoskeletal issues: Cold hands or feet, Joint pain or swelling SR Neuro issues: Difficulty balancing SR Endocrine issues: Cold intolerance Results - Labs Laboratory Last Values WBC 4.7 X10^3/uL (4.5-11.0) 01/29/18 08:49 RBC 3.28 X10^6/uL (4.5-5.9) L 01/29/18 08:49 Hgb 11.0 g/dL (13.5-17.5) L 01/29/18 08:49 Hct 31.2 % (41-53) L 01/29/18 08:49 MCV 95.2 fL (80-100) 01/29/18 08:49 MCH 33.7 PG (26-34) 01/29/18 08:49 MCHC 35.4 % (30-36) 01/29/18 08:49 RDW 17.0 % (11.6-14.8) H 01/29/18 08:49 Plt Count 105 X10^3/uL (150-400) L 01/29/18 08:49 Neut % (Auto) 63.4 % (50-75) 01/29/18 08:49 Lymph % (Auto) 24.0 % (25-40) L 01/29/18 08:49 [place] % (Auto) 10.4 % (3-14) 01/29/18 08:49 Eos % (Auto) 1.2 % (2-4) L 01/29/18 08:49 Baso % (Auto) 1.0 % (0-2) 01/29/18 08:49 Neut # (Auto) 3000 /uL (9349-3359) 01/29/18 08:49 Sodium 138 mmol/L (137-145) 01/29/18 08:49 Potassium 4.4 mmol/L (3.4-5.1) 01/29/18 08:49 Chloride 106 mmol/L (98-107) 01/29/18 08:49 Carbon Dioxide 23 mmol/L (22-32) 01/29/18 08:49 BUN 19 mg/dL (9-20) 01/29/18 08:49 Creatinine 1.20 mg/dL (0.66-1.25) 01/29/18 08:49 Estimated GFR > 60.0 mL/min (>60) 01/29/18 08:49 BUN/Creatinine Ratio 15.8 (6-22) 01/29/18 08:49 Glucose 248 mg/dL (80-110) H 01/29/18 08:49 Calcium 9.2 mg/dL (8.4-10.2) 01/29/18 08:49 Iron 109 ug/dL (49-181) 01/01/18 08:45 TIBC 380 ug/dL (261-462) 01/01/18 08:45 % Saturation 29 % (20-50) 01/01/18 08:45 Transferrin 297 mg/dL (206-381) 01/01/18 08:45 Ferritin 181.0 ng/mL (17.9-464) 11/20/17 08:14 Total Bilirubin 0.4 mg/dL (0.2-1.3) 01/29/18 08:49 AST 24 IU/L (17-59) 01/29/18 08:49 ALT 27 IU/L (21-72) 01/29/18 08:49 Alkaline Phosphatase 84 U/L (38-126) 01/29/18 08:49 Total Protein 6.6 g/dL (6.3-8.2) 01/29/18 08:49 Albumin 4.0 g/dL (3.5-5.0) 01/29/18 08:49 Globulin 2.6 g/dL (1.7-4.1) 01/29/18 08:49 Albumin/Globulin Ratio 1.5 (1.0-2.8) 01/29/18 08:49 Carcinoembryonic Ag 2.0 ng/mL (0.1-3.0) 01/15/18 08:20 - Imaging Additional studies: Procedures Bypass Sigmoid Colon to Cutaneous, Open Approach (03/13/17) Control Bleeding in Peritoneal Cavity, Open Approach (03/13/17) Drainage of Peritoneal Cavity with Drainage Device, Percutaneous Approach (05/11/17) Excision of Mesenteric Lymphatic, Open Approach, Diagnostic (03/13/17) Insertion of Infusion Device into Superior Vena Cava, Percutaneous Approach (03/13/17) Inspection of Lower Intestinal Tract, Via Natural or Artificial Opening Endoscopic (03/13/17) Resection of Rectum, Open Approach (03/13/17) Resection of Sigmoid Colon, Open Approach (03/13/17) Transfusion of Nonautologous Red Blood Cells into Central Vein, Percutaneous Approach (03/13/17) Home Medications and Allergies Home Medications Medication Instructions Recorded Confirmed Type atorvastatin [Lipitor] 20 mg PO QDAY #0 01/29/17 01/15/18 History insulin glargine [Basaglar KwikPen 10 unit SQ QDAY #0 05/01/17 01/15/18 History U-100 Insulin] biotin 1 mcg PO DAILY 11/20/17 01/15/18 History glipizide 1 tab PO BID 12/04/17 01/15/18 History fluorouracil 2,400 mg IV NOW #1 device 12/18/17 Rx fluorouracil 2,400 mg IV NOW #1 device 01/01/18 Rx apixaban 5 mg PO BID #120 tab 01/29/18 Rx enoxaparin [Lovenox] 100 mg SUB-Q Q12H #10 ml 01/29/18 Rx Allergies Allergy/AdvReac Type Severity Reaction Status Date / Time No Known Drug Allergies Allergy Verified 12/18/17 08:44 Exam Vital signs: Last Vital Signs Temp 98.2 F 01/29/18 09:14 Pulse 69 01/29/18 09:14 Resp 18 01/29/18 09:14 BP 130/79 H 01/29/18 09:14 Pulse Ox 99 01/29/18 09:14 - Constitutional positive no acute distress - Routine HEENT Exam Head: Present: normocephalic, atraumatic Eye: Present: conjunctivae pink. Absent: conjunctival icterus, scleral injection ENT: Present: mucous membranes moist, oropharynx clear - Routine Neck Exam Present: supple. Absent: lymphadenopathy - Routine Respiratory Exam Present: Clear to auscultation bilaterally. Absent: rales, rhonchi, wheezes - Routine Cardiovascular Exam Present: RRR, S1, S2. Absent: murmur, gallop, rubs, JVD - Routine Abdominal Exam Present: soft, normoactive bowel sounds, ostomy. Absent: tenderness, distended, organomegaly, mass Palpation/Percussion: Absent: fluid waves - Routine Extremities Exam Absent: edema, calf tenderness - Routine Skin Exam Present: intact, normal turgor. Absent: petechiae - Routine Neurological Exam Present: alert, oriented X3 - Routine Psychiatric Exam Present: normal affect
[2018-02-12 08:59] LABS: Add Manual Diff / Slide Review NO; Basophils Percent Auto 1.1 % (0-2); Eosinophils Percent Auto 1.4 % (2-4); Hematocrit 31.5 % (41-53); Lymphocytes Percent Auto 24.8 % (25-40); Mean Corpuscular HGB Conc 35.1 % (30-36); Monocytes Percent Auto 11.4 % (3-14); Neutrophils Absolute Auto 2800 /uL (3000-5900); Neutrophils Percent Auto 61.3 % (50-75); Platelet Count 111 X10^3/uL (150-400); Red Blood Cell Count 3.24 X10^6/uL (4.5-5.9); Red Cell Distribution Width 16.1 % (11.6-14.8); White Blood Cell Count 4.6 X10^3/uL (4.5-11.0)
[2018-02-12 09:06] VITALS: BP 138/65; PULSE 76; RESP 18; TEMP 36.4; O2SAT 100
[2018-02-12 09:07] LABS: Alanine Aminotransferase 31 IU/L (21-72); Albumin Globulin Ratio 1.5 (1.0-2.8); Alkaline Phosphatase 67 U/L (38-126); Aspartate Aminotransferase 23 IU/L (17-59); Bilirubin Total 0.4 mg/dL (0.2-1.3); Blood Urea Nitrogen 19 mg/dL (9-20); Calcium 9.1 mg/dL (8.4-10.2); Carbon Dioxide 21 mmol/L (22-32); Chloride 109 mmol/L (98-107); Estimated Glomerular Filt Rate > 60.0 mL/min (>60); Globulin 2.6 g/dL (1.7-4.1); Glucose 180 mg/dL (80-110); HEMOLYSIS < 15 (0-50); Potassium 4.4 mmol/L (3.4-5.1); Sodium 138 mmol/L (137-145); Total Protein 6.6 g/dL (6.3-8.2)
[2018-02-12 09:38] LABS: Carcinoembryonic Antigen 1.8 ng/mL (0.1-3.0)
[2018-02-12] MEDS: DEXAMETHASONE 12 MG in SODIUM CHLORIDE 0.9% 50 ML 212 ML IV (10:02)
[2018-02-12] MEDS: LORazepam 0.5 MG TABLET PO (10:02)
[2018-02-12] MEDS: FOSAPREPITANT 150 MG in SODIUM CHLORIDE 0.9% 150 ML 300 ML IV (10:27)
--- NOTE | 2018-02-12 10:48 | ONC.NAV ---
Description: Financial Assistance Activity: Pt had asked about reimbursement from the [employer] Fund to cover some of the out of pocket co-pays that he will have for Eliquis. Discussed the reimbursement policy. HOTEL YARDPERSON also printed out information from the drug hosiery repairer online, in order for he and his to explore if they qualify for additional support money for their out of pocket portion for the next 6-months ($175/month). No other needs identified at this time.
[2018-02-12] MEDS: ONDANSETRON 16 MG in SODIUM CHLORIDE 0.9% 50 ML 232 ML IV (11:15)
[2018-02-12] MEDS: LEUCOVORIN IV (11:54)
[2018-02-12] MEDS: DEXTROSE 5% IV ×2 (11:54→11:55)
[2018-02-12] MEDS: DEXTROSE 5 % IN WATER 100 ML 21 ML IV (11:55)
[2018-02-12] MEDS: OXALIPLATIN IV (11:55)
[2018-02-12] MEDS: ISOOSMOTIC VEHICLE IV (14:24)
[2018-02-12] MEDS: FLUOROURACIL IV (14:24)
--- NOTE | 2018-02-12 14:45 | PC.NURSE ---
cadd pump settings verified with EOS. Line flushed, equashield attached and pump started and verified to be running with pt. Pt advised to rtn on at approx 1245 for disconnect
[2018-02-14 12:15] VITALS: BP 129/68; PULSE 71; RESP 16; TEMP 37; O2SAT 99
--- NOTE | 2018-02-14 14:59 | PC.NURSE ---
CADD pump disconnected w/o difficulty, port flushed per protocol. 2x2 gauze dressing placed. Pt reports feeling good. RR equal and unlabored, face and body relaxed, gait steady. No s/s of acute distress.
[2018-02-26 09:03] LABS: Add Manual Diff / Slide Review NO; Basophils Percent Auto 0.9 % (0-2); Eosinophils Percent Auto 1.7 % (2-4); Hematocrit 32.4 % (41-53); Hemoglobin 11.4 g/dL (13.5-17.5); Lymphocytes Percent Auto 21.7 % (25-40); Mean Corpuscular HGB Conc 35.1 % (30-36); Mean Corpuscular Hemoglobin 34.1 PG (26-34); Mean Corpuscular Volume 97.3 fL (80-100); Neutrophils Absolute Auto 3300 /uL (3000-5900); Neutrophils Percent Auto 64.7 % (50-75); Platelet Count 122 X10^3/uL (150-400); Red Blood Cell Count 3.33 X10^6/uL (4.5-5.9); Red Cell Distribution Width 15.9 % (11.6-14.8); White Blood Cell Count 5.1 X10^3/uL (4.5-11.0)
[2018-02-26 09:15] LABS: Alanine Aminotransferase 36 IU/L (21-72); Albumin 4.1 g/dL (3.5-5.0); Albumin Globulin Ratio 1.7 (1.0-2.8); Alkaline Phosphatase 81 U/L (38-126); Aspartate Aminotransferase 26 IU/L (17-59); BUN Creatinine Ratio 15.4 (6-22); Bilirubin Total 0.3 mg/dL (0.2-1.3); Blood Urea Nitrogen 20 mg/dL (9-20); Calcium 9.1 mg/dL (8.4-10.2); Carbon Dioxide 20 mmol/L (22-32); Chloride 109 mmol/L (98-107); Estimated Glomerular Filt Rate 55.1 mL/min (>60); Globulin 2.4 g/dL (1.7-4.1); Glucose 253 mg/dL (80-110); HEMOLYSIS < 15 (0-50); Potassium 4.6 mmol/L (3.4-5.1); Sodium 141 mmol/L (137-145); Total Protein 6.5 g/dL (6.3-8.2)
[2018-02-26 09:21] VITALS: BP 119/73; PULSE 82; RESP 18; TEMP 36.7; O2SAT 99
--- NOTE | 2018-02-26 09:31 | ONC.APRN.PN ---
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 Subsequently he underwent surgical resection March 13, 2017. One of 7 regional lymph nodes was positive for metastatic disease. Treatment with FOLFOX was initiated 10/09/2017. he presents today for cycle 11/12 FOLFOX administered q14 days. Creatinine is up just slightly previously it has been normal. Creatinine today we 0.3 GFR 55 BUN is normal at 20. No urinary complaints, oral intake of fluids is adequate per pt report. Cont to monitor, no indications for chemo adjustments at this time, overall pt has tolerated treatment quite well. RTC in 2 weeks time for cycle 06/12, I will have him meet with one of our oncologists. Post treatment imaging will be ordered. Pt will cont to coordinate with surgery re: Reversal of ileostomy. 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 Subsequently he underwent surgical resection March 13, 2017. One of 7 regional lymph nodes was positive for metastatic disease. Treatment with FOLFOX was initiated 10/09/2017. he presents today for cycle / FOLFOX administered q14 days. 01/29/2018 pt presented with unilateral edema LLE venous doppler demonstrated nonocclusive DVT involving the left popliteal. treatment with LMWH initiated x 5 days pt then switched to apixaban 5mg BID. Today the pt reports the swelling in his LLE has diminished. he is not having any unexplained bleeding or bruising. He is taking apixaban 5 mg BID. Vadim has no new complaints on exam today. He continues to note some numbness/pain in his fingertips when he reaches into the fridge. Symptoms worse immediately after FOLFOX improves until next infusion. Denies fever or chills admits to cough but that from marijuana. Otherwise activity tolerance is good, still riding his bike although not as long. Very infrequent mild nausea which resolved on its own. Appetite is stable. No change with bowel habits/colostomy. No skin changes. No chest pain, shortness of breath. When inquired what symptom he was smoking marijuana for he replied so I dont go crazy. Vadim had a visit with surgery Dr Shabazz recently regarding scheduling ileostomy reversal. Plan is to re-evaluate the patient about 4 or 6 weeks after completion of chemotherapy. Vadim once again expresses frustration over credentialing and insurance issues at the clinic. TIMELINE: 1) Colorectal Cancer. Stage IIIB (pT3, pN1, M0). Diagnosis: 01/29/2017. Biopsy of the sigmoid mass. Pathology confirming a moderately differentiated adenocarcinoma. MSI stable (intact nuclear expression: MLH1, MSH 2, MSH6, and PMS2). 01/29/2017. Biopsy of left colon polyp at 50 cm. Portions of fragmented colorectal mucosa involved by moderately differentiated adenocarcinoma. 03/13/2017. Pathology confirming a invasive adenocarcinoma in the distal sigmoid colon measuring 37 x 32 x 21 mm. Low grade. Tumor extended through the muscularis propria into the adventitia without extending to the peritoneal surface. Resected margins including the proximal distal and circumferential negative. No LV I seen. No tumor deposit seen. 47 regional lymph nodes were identified 1 positive for disease without extranodal extension. Clinical staging workup, pretreatment: 01/30/2017. CEA 24.9. 01/29/2017. Colonoscopy. Circumferential mass at the distal sigmoid colon extending to the rectosigmoid junction. Exact distance from the anal verge confirmed with a rigid sigmoidoscopy following the colonoscopic procedure. Most inferior aspect of the mass encountered 818 cm from the anal verge. The lesion extended proximally from there. 01/30/2017. CT abdomen and pelvis with contrast. In the rectum abnormal mural thickening rectosigmoid junction inferiorly to the middle lower thirds of the rectum. Maximum thickness 19 x 20 mm. Craniocaudal length of thickening is 70-80 meters. Liver spleen normal in size and enhancement. No retroperitoneal mesenteric or inguinal adenopathy. 02/13/2017. MRI pelvis without contrast (done at [facility], [place]). Tumor Location: Tumor is located between 23 and 18 cm above anal verge. Anal verge to distal tumor margin 18 cm. Tumor is not at or below the pupil rectal sling. Distance of lower extent of tumor from top of anal sphincter 15 cm. Craniocaudad length of tumor is 4.5 cm. Extramural depth of invasion and MRT category: Extramural depth of invasion is 7 mm T category equal to T3c. Extramural venous invasion positive. Suspicious mesorectal lymph node seen left O: Image 11 series 3. Suspicious extra mesorectal lymph node to the right and above tumor agent 5-10 series 3 and images 2-7 of series 5. 03/07/2017. CT chest with contrast. No evidence of metastatic disease. Prognosis: 05/01/2017. [facility] prognostic online tool: 3 year recurrence free survival after adjuvant chemotherapy 85.9%. Overall survival at 5 years after adjuvant chemotherapy 83.4% (SEER 5 yr OS for stage IIIB = 46.3%) 2) Diabetes, diagnosed ~10 years ago. Currently on Lantus and glipizide. Patient is also on lisinopril. Patient is not aware of any neuropathy, Recent EGFR on 01/30/2017 at >60 ml/min. 3) Hypercholesterolemia. 4) Malignant melanoma: First episode back, ~15 years ago. Second lesion right cheek ~ 5 years ago. Managed, surveillence with dermatology. - Patient Self-Reported Symptoms SR Constitution: Weight loss/gain SR ears, nose, mouth, throat issues: Mouth sores SR respiratory issues: Mucous SR Cardiovascular issues: Dizzy/lightheaded SR Skin issues: Dry skin, Nail changes SR Musculoskeletal issues: Cold hands or feet SR Neuro issues: Numbness or tingling, Difficulty balancing SR Endocrine issues: Cold intolerance Results - Labs Laboratory Last Values WBC 5.1 X10^3/uL (4.5-11.0) 02/26/18 08:51 RBC 3.33 X10^6/uL (4.5-5.9) L 02/26/18 08:51 Hgb 11.4 g/dL (13.5-17.5) L 02/26/18 08:51 Hct 32.4 % (41-53) L 02/26/18 08:51 MCV 97.3 fL (80-100) 02/26/18 08:51 MCH 34.1 PG (26-34) H 02/26/18 08:51 MCHC 35.1 % (30-36) 02/26/18 08:51 RDW 15.9 % (11.6-14.8) H 02/26/18 08:51 Plt Count 122 X10^3/uL (150-400) L 02/26/18 08:51 Neut % (Auto) 64.7 % (50-75) 02/26/18 08:51 Lymph % (Auto) 21.7 % (25-40) L 02/26/18 08:51 [place] % (Auto) 11.0 % (3-14) 02/26/18 08:51 Eos % (Auto) 1.7 % (2-4) L 02/26/18 08:51 Baso % (Auto) 0.9 % (0-2) 02/26/18 08:51 Neut # (Auto) 3300 /uL (2601-0158) 02/26/18 08:51 Sodium 141 mmol/L (137-145) 02/26/18 08:51 Potassium 4.6 mmol/L (3.4-5.1) 02/26/18 08:51 Chloride 109 mmol/L (98-107) H 02/26/18 08:51 Carbon Dioxide 20 mmol/L (22-32) L 02/26/18 08:51 BUN 20 mg/dL (9-20) 02/26/18 08:51 Creatinine 1.30 mg/dL (0.66-1.25) H 02/26/18 08:51 Estimated GFR 55.1 mL/min (>60) L 02/26/18 08:51 BUN/Creatinine Ratio 15.4 (6-22) 02/26/18 08:51 Glucose 253 mg/dL (80-110) H 02/26/18 08:51 Calcium 9.1 mg/dL (8.4-10.2) 02/26/18 08:51 Iron 109 ug/dL (49-181) 01/01/18 08:45 TIBC 380 ug/dL (261-462) 01/01/18 08:45 % Saturation 29 % (20-50) 01/01/18 08:45 Transferrin 297 mg/dL (206-381) 01/01/18 08:45 Ferritin 181.0 ng/mL (17.9-464) 11/20/17 08:14 Total Bilirubin 0.3 mg/dL (0.2-1.3) 02/26/18 08:51 AST 26 IU/L (17-59) 02/26/18 08:51 ALT 36 IU/L (21-72) 02/26/18 08:51 Alkaline Phosphatase 81 U/L (38-126) 02/26/18 08:51 Total Protein 6.5 g/dL (6.3-8.2) 02/26/18 08:51 Albumin 4.1 g/dL (3.5-5.0) 02/26/18 08:51 Globulin 2.4 g/dL (1.7-4.1) 02/26/18 08:51 Albumin/Globulin Ratio 1.7 (1.0-2.8) 02/26/18 08:51 Carcinoembryonic Ag 1.8 ng/mL (0.1-3.0) 02/12/18 08:43 - Imaging Additional studies: Procedures Bypass Sigmoid Colon to Cutaneous, Open Approach (03/13/17) Control Bleeding in Peritoneal Cavity, Open Approach (03/13/17) Drainage of Peritoneal Cavity with Drainage Device, Percutaneous Approach (05/11/17) Excision of Mesenteric Lymphatic, Open Approach, Diagnostic (03/13/17) Insertion of Infusion Device into Superior Vena Cava, Percutaneous Approach (03/13/17) Inspection of Lower Intestinal Tract, Via Natural or Artificial Opening Endoscopic (03/13/17) Resection of Rectum, Open Approach (03/13/17) Resection of Sigmoid Colon, Open Approach (03/13/17) Transfusion of Nonautologous Red Blood Cells into Central Vein, Percutaneous Approach (03/13/17) Home Medications and Allergies Home Medications Medication Instructions Recorded Confirmed Type atorvastatin [Lipitor] 20 mg PO QDAY #0 01/29/17 02/25/18 History insulin glargine [Basaglar KwikPen 10 unit SQ QDAY #0 05/01/17 01/15/18 History U-100 Insulin] biotin 1 mcg PO DAILY 11/20/17 01/15/18 History glipizide 1 tab PO BID 12/04/17 01/15/18 History fluorouracil 2,400 mg IV NOW #1 device 12/18/17 Rx fluorouracil 2,400 mg IV NOW #1 device 01/01/18 Rx apixaban 5 mg PO BID #120 tab 01/29/18 Rx enoxaparin [Lovenox] 100 mg SUB-Q Q12H #10 ml 01/29/18 Rx apixaban 5 mg tablet 5 mg PO BID 02/25/18 02/25/18 History biotin 10 mg tablet 10 mg PO DAILY 02/25/18 02/25/18 History glipizide 5 mg tablet 5 mg PO DAILY 02/25/18 02/25/18 History Allergies Allergy/AdvReac Type Severity Reaction Status Date / Time No Known Drug Allergies Allergy Verified 12/18/17 08:44 Exam Vital signs: Last Vital Signs Temp 98.1 F 02/26/18 09:21 Pulse 82 02/26/18 09:21 Resp 18 02/26/18 09:21 BP 119/73 02/26/18 09:21 Pulse Ox 99 02/26/18 09:21 - Constitutional positive no acute distress - Routine HEENT Exam Eye: Present: conjunctivae pink. Absent: conjunctival icterus, scleral injection ENT: Present: mucous membranes moist, oropharynx clear - Routine Neck Exam Present: supple. Absent: lymphadenopathy - Routine Respiratory Exam Present: Clear to auscultation bilaterally. Absent: rales, rhonchi, wheezes - Routine Cardiovascular Exam Present: RRR, S1, S2. Absent: murmur, gallop, rubs, JVD - Routine Abdominal Exam Present: soft, normoactive bowel sounds, surgical scars, ostomy. Absent: tenderness, distended, organomegaly - Routine Extremities Exam Absent: edema, calf tenderness - Routine Skin Exam Present: intact, normal turgor. Absent: petechiae, rash - Routine Neurological Exam Present: alert, oriented X3 - Routine Psychiatric Exam Present: normal affect
[2018-02-26] MEDS: LORazepam 0.5 MG TABLET PO (10:18)
[2018-02-26] MEDS: DEXAMETHASONE 12 MG in SODIUM CHLORIDE 0.9% 50 ML 212 ML IV (10:38)
[2018-02-26] MEDS: FOSAPREPITANT 150 MG in SODIUM CHLORIDE 0.9% 150 ML 300 ML IV (10:56)
[2018-02-26] MEDS: ONDANSETRON 16 MG in SODIUM CHLORIDE 0.9% 50 ML 232 ML IV (11:55)
[2018-02-26] MEDS: DEXTROSE 5% IV ×2 (12:32→12:33)
[2018-02-26] MEDS: LEUCOVORIN IV (12:32)
[2018-02-26] MEDS: OXALIPLATIN IV (12:33)
[2018-02-26] MEDS: DEXTROSE 5 % IN WATER 100 ML 21 ML IV (12:35)
[2018-02-26] MEDS: FLUOROURACIL IV (15:16)
[2018-02-26] MEDS: ISOOSMOTIC VEHICLE IV (15:16)
--- NOTE | 2018-02-26 15:35 | PC.NURSE ---
cadd pump settings verified with Mimi. Line was flushed and equashield attached. Pump started and verified with pt to running
--- NOTE | 2018-03-12 09:25 | ONC.PN ---
PN -Subjective Interval history: Diagnosis: Colon cancer involving the sigmoid colon, T3 N1, MSI stable. Previous treatment: 1. Surgical resection March 2017. 2. Adjuvant chemotherapy with FOLFOX. He is due for his 12th and final cycle today. 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 Subsequently he underwent surgical resection March 13, 2017. One of 7 regional lymph nodes was positive for metastatic disease. Treatment with FOLFOX was initiated 10/09/2017. he presents today for cycle 12 FOLFOX administered q14 days. 01/29/2018 pt presented with unilateral edema LLE venous doppler demonstrated nonocclusive DVT involving the left popliteal. treatment with LMWH initiated x 5 days pt then switched to apixaban 5mg BID. Today, he is feeling well with no new complaints. He has been tolerated his chemotherapy reasonably well. 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 It has been more severe on the on the left. It is not painful but is somewhat numb. It has been interfering somewhat in his ability to ride his bicycle. He has had some cold sensitivity in his hands. He has also had some tenderness in the mouth but no open sores. He denies any nausea or vomiting. His appetite and energy level have been fair. No shortness of breath or cough. His iliac he has been functioning normally. TIMELINE: 1) Colorectal Cancer. Stage IIIB (pT3, pN1, M0). Diagnosis: 01/29/2017. Biopsy of the sigmoid mass. Pathology confirming a moderately differentiated adenocarcinoma. MSI stable (intact nuclear expression: MLH1, MSH 2, MSH6, and PMS2). 01/29/2017. Biopsy of left colon polyp at 50 cm. Portions of fragmented colorectal mucosa involved by moderately differentiated adenocarcinoma. 03/13/2017. Pathology confirming a invasive adenocarcinoma in the distal sigmoid colon measuring 37 x 32 x 21 mm. Low grade. Tumor extended through the muscularis propria into the adventitia without extending to the peritoneal surface. Resected margins including the proximal distal and circumferential negative. No LV I seen. No tumor deposit seen. 47 regional lymph nodes were identified 1 positive for disease without extranodal extension. Clinical staging workup, pretreatment: 01/30/2017. CEA 24.9. 01/29/2017. Colonoscopy. Circumferential mass at the distal sigmoid colon extending to the rectosigmoid junction. Exact distance from the anal verge confirmed with a rigid sigmoidoscopy following the colonoscopic procedure. Most inferior aspect of the mass encountered 818 cm from the anal verge. The lesion extended proximally from there. 01/30/2017. CT abdomen and pelvis with contrast. In the rectum abnormal mural thickening rectosigmoid junction inferiorly to the middle lower thirds of the rectum. Maximum thickness 19 x 20 mm. Craniocaudal length of thickening is 70-80 meters. Liver spleen normal in size and enhancement. No retroperitoneal mesenteric or inguinal adenopathy. 02/13/2017. MRI pelvis without contrast (done at [facility] Tumor Location: Tumor is located between 23 and 18 cm above anal verge. Anal verge to distal tumor margin 18 cm. Tumor is not at or below the pupil rectal sling. Distance of lower extent of tumor from top of anal sphincter 15 cm. Craniocaudad length of tumor is 4.5 cm. Extramural depth of invasion and MRT category: Extramural depth of invasion is 7 mm T category equal to T3c. Extramural venous invasion positive. Suspicious mesorectal lymph node seen left O: Image 11 series 3. Suspicious extra mesorectal lymph node to the right and above tumor agent 5-10 series 3 and images 2-7 of series 5. 03/07/2017. CT chest with contrast. No evidence of metastatic disease. Prognosis: 05/01/2017. [facility] prognostic online tool: 3 year recurrence free survival after adjuvant chemotherapy 85.9%. Overall survival at 5 years after adjuvant chemotherapy 83.4% (SEER 5 yr OS for stage IIIB = 46.3%) 2) Diabetes, diagnosed ~10 years ago. Currently on Lantus and glipizide. Patient is also on lisinopril. Patient is not aware of any neuropathy, Recent EGFR on 01/30/2017 at >60 ml/min. 3) Hypercholesterolemia. 4) Malignant melanoma: First episode back, ~15 years ago. Second lesion right cheek ~ 5 years ago. Managed, surveillence with dermatology. - Patient Self-Reported Symptoms SR Constitution: Weight loss/gain SR ears, nose, mouth, throat issues: Mouth sores SR respiratory issues: Mucous SR Cardiovascular issues: Dizzy/lightheaded SR Skin issues: Dry skin, Nail changes SR Musculoskeletal issues: Cold hands or feet SR Neuro issues: Numbness or tingling, Difficulty balancing SR Endocrine issues: Cold intolerance Home Medications and Allergies Home Medications Medication Instructions Recorded Confirmed Type atorvastatin [Lipitor] 20 mg PO QDAY #0 01/29/17 02/25/18 History insulin glargine [Basaglar KwikPen 10 unit SQ QDAY #0 05/01/17 01/15/18 History U-100 Insulin] biotin 1 mcg PO DAILY 11/20/17 01/15/18 History glipizide 1 tab PO BID 12/04/17 01/15/18 History fluorouracil 2,400 mg IV NOW #1 device 12/18/17 Rx fluorouracil 2,400 mg IV NOW #1 device 01/01/18 Rx apixaban 5 mg PO BID #120 tab 01/29/18 Rx enoxaparin [Lovenox] 100 mg SUB-Q Q12H #10 ml 01/29/18 Rx apixaban 5 mg tablet 5 mg PO BID 02/25/18 02/25/18 History biotin 10 mg tablet 10 mg PO DAILY 02/25/18 02/25/18 History glipizide 5 mg tablet 5 mg PO DAILY 02/25/18 02/25/18 History Allergies Allergy/AdvReac Type Severity Reaction Status Date / Time No Known Drug Allergies Allergy Verified 12/18/17 08:44 Exam Vital signs: Last Vital Signs Temp 98.1 F 02/26/18 09:21 Pulse 82 02/26/18 09:21 Resp 18 02/26/18 09:21 BP 119/73 02/26/18 09:21 Pulse Ox 99 02/26/18 09:21 - Constitutional positive no acute distress, positive average body habitus - Routine HEENT Exam Head: Present: normocephalic, atraumatic Eye: Present: EOMI, PERRL. Absent: conjunctival icterus ENT: Present: mucous membranes moist, oropharynx clear - Routine Neck Exam Present: supple. Absent: lymphadenopathy, thyromegaly - Routine Respiratory Exam Present: Clear to auscultation bilaterally. Absent: rales, wheezes - Routine Cardiovascular Exam Present: RRR, S1, S2. Absent: murmur - Routine Abdominal Exam Present: soft, normoactive bowel sounds. Absent: organomegaly, mass - Routine Extremities Exam Absent: cyanosis, clubbing, edema - Routine Skin Exam Present: intact. Absent: petechiae, rash - Routine Neurological Exam Present: alert, oriented X3 - Routine Psychiatric Exam Present: normal affect, normal thought process Results - Labs Laboratory Last Values WBC 5.1 X10^3/uL (4.5-11.0) 02/26/18 08:51 RBC 3.33 X10^6/uL (4.5-5.9) L 02/26/18 08:51 Hgb 11.4 g/dL (13.5-17.5) L 02/26/18 08:51 Hct 32.4 % (41-53) L 02/26/18 08:51 MCV 97.3 fL (80-100) 02/26/18 08:51 MCH 34.1 PG (26-34) H 02/26/18 08:51 MCHC 35.1 % (30-36) 02/26/18 08:51 RDW 15.9 % (11.6-14.8) H 02/26/18 08:51 Plt Count 122 X10^3/uL (150-400) L 02/26/18 08:51 Neut % (Auto) 64.7 % (50-75) 02/26/18 08:51 Lymph % (Auto) 21.7 % (25-40) L 02/26/18 08:51 [place] % (Auto) 11.0 % (3-14) 02/26/18 08:51 Eos % (Auto) 1.7 % (2-4) L 02/26/18 08:51 Baso % (Auto) 0.9 % (0-2) 02/26/18 08:51 Neut # (Auto) 3300 /uL (5481-6967) 02/26/18 08:51 Sodium 141 mmol/L (137-145) 02/26/18 08:51 Potassium 4.6 mmol/L (3.4-5.1) 02/26/18 08:51 Chloride 109 mmol/L (98-107) H 02/26/18 08:51 Carbon Dioxide 20 mmol/L (22-32) L 02/26/18 08:51 BUN 20 mg/dL (9-20) 02/26/18 08:51 Creatinine 1.30 mg/dL (0.66-1.25) H 02/26/18 08:51 Estimated GFR 55.1 mL/min (>60) L 02/26/18 08:51 BUN/Creatinine Ratio 15.4 (6-22) 02/26/18 08:51 Glucose 253 mg/dL (80-110) H 02/26/18 08:51 Calcium 9.1 mg/dL (8.4-10.2) 02/26/18 08:51 Iron 109 ug/dL (49-181) 01/01/18 08:45 TIBC 380 ug/dL (261-462) 01/01/18 08:45 % Saturation 29 % (20-50) 01/01/18 08:45 Transferrin 297 mg/dL (206-381) 01/01/18 08:45 Ferritin 181.0 ng/mL (17.9-464) 11/20/17 08:14 Total Bilirubin 0.3 mg/dL (0.2-1.3) 02/26/18 08:51 AST 26 IU/L (17-59) 02/26/18 08:51 ALT 36 IU/L (21-72) 02/26/18 08:51 Alkaline Phosphatase 81 U/L (38-126) 02/26/18 08:51 Total Protein 6.5 g/dL (6.3-8.2) 02/26/18 08:51 Albumin 4.1 g/dL (3.5-5.0) 02/26/18 08:51 Globulin 2.4 g/dL (1.7-4.1) 02/26/18 08:51 Albumin/Globulin Ratio 1.7 (1.0-2.8) 02/26/18 08:51 Carcinoembryonic Ag 1.8 ng/mL (0.1-3.0) 02/12/18 08:43 - Imaging Additional studies: Procedures Bypass Sigmoid Colon to Cutaneous, Open Approach (03/13/17) Control Bleeding in Peritoneal Cavity, Open Approach (03/13/17) Drainage of Peritoneal Cavity with Drainage Device, Percutaneous Approach (05/11/17) Excision of Mesenteric Lymphatic, Open Approach, Diagnostic (03/13/17) Insertion of Infusion Device into Superior Vena Cava, Percutaneous Approach (03/13/17) Inspection of Lower Intestinal Tract, Via Natural or Artificial Opening Endoscopic (03/13/17) Resection of Rectum, Open Approach (09/12/17) Resection of Sigmoid Colon, Open Approach (03/13/17) Transfusion of Nonautologous Red Blood Cells into Central Vein, Percutaneous Approach (03/13/17) Assessment and Plan (1) Colon cancer Problem details: 67-year-old man with stage III colon cancer. He will proceed with his 12th and final cycle of adjuvant chemotherapy today. Return to clinic in about a month or so for follow-up. If he is doing well at that time, I would anticipate switching to an every 3 month follow-up. I think that he will be recovered enough from his chemotherapy to proceed with the reversal of the ileostomy probably in 4-6 weeks. I think it would be prudent to repeat a colonoscopy prior to surgery. It has been about a year since his last 1. Current visit: No Status: Acute
--- NOTE | 2018-03-12 09:28 | ONC.NAV ---
*Provided Last Chemo Card.
[2018-03-12 09:46] LABS: Add Manual Diff / Slide Review NO; Basophils Percent Auto 0.5 % (0-2); Eosinophils Percent Auto 0.5 % (2-4); Hematocrit 32.4 % (41-53); Hemoglobin 11.4 g/dL (13.5-17.5); Lymphocytes Percent Auto 14.8 % (25-40); Mean Corpuscular HGB Conc 35.1 % (30-36); Mean Corpuscular Hemoglobin 34.2 PG (26-34); Mean Corpuscular Volume 97.4 fL (80-100); Monocytes Percent Auto 8.4 % (3-14); Neutrophils Absolute Auto 4600 /uL (3000-5900); Neutrophils Percent Auto 75.8 % (50-75); Platelet Count 107 X10^3/uL (150-400); Red Blood Cell Count 3.32 X10^6/uL (4.5-5.9); Red Cell Distribution Width 15.7 % (11.6-14.8)
[2018-03-12 09:52] VITALS: BP 148/72; PULSE 79; RESP 16; TEMP 36.8; O2SAT 100
[2018-03-12] MEDS: LORazepam 0.5 MG TABLET PO (10:02)
[2018-03-12 10:03] LABS: Alanine Aminotransferase 35 IU/L (21-72); Albumin 4.1 g/dL (3.5-5.0); Albumin Globulin Ratio 1.5 (1.0-2.8); Alkaline Phosphatase 65 U/L (38-126); Aspartate Aminotransferase 27 IU/L (17-59); BUN Creatinine Ratio 18.3 (6-22); Bilirubin Total 0.4 mg/dL (0.2-1.3); Blood Urea Nitrogen 22 mg/dL (9-20); Calcium 9.1 mg/dL (8.4-10.2); Carbon Dioxide 23 mmol/L (22-32); Chloride 107 mmol/L (98-107); Estimated Glomerular Filt Rate > 60.0 mL/min (>60); Globulin 2.7 g/dL (1.7-4.1); Glucose 290 mg/dL (80-110); HEMOLYSIS < 15 (0-50); Sodium 141 mmol/L (137-145); Total Protein 6.8 g/dL (6.3-8.2)
[2018-03-12 10:33] LABS: Carcinoembryonic Antigen 2.2 ng/mL (0.1-3.0)
[2018-03-12] MEDS: DEXAMETHASONE 12 MG in SODIUM CHLORIDE 0.9% 50 ML 212 ML IV (10:43)
[2018-03-12] MEDS: FOSAPREPITANT 150 MG in SODIUM CHLORIDE 0.9% 150 ML 300 ML IV (11:04)
[2018-03-12] MEDS: ONDANSETRON 16 MG in SODIUM CHLORIDE 0.9% 50 ML 232 ML IV (11:46)
[2018-03-12] MEDS: OXALIPLATIN IV (12:26)
[2018-03-12] MEDS: LEUCOVORIN IV (12:26)
[2018-03-12] MEDS: DEXTROSE 5% IV ×2 (12:26)
[2018-03-12] MEDS: DEXTROSE 5 % IN WATER 100 ML 21 ML IV (12:27)
[2018-03-12] MEDS: FLUOROURACIL IV (15:10)
[2018-03-12] MEDS: ISOOSMOTIC VEHICLE IV (15:10)
--- NOTE | 2018-03-12 15:40 | PC.NURSE ---
CADD PUMP SETTINGS VERIFIED WITH OG SUN. LINE FLUSHED, EQUASHIELD ATTACHED, AND PUMP SETTINGS REVERIFIED WITH PT TO BE RUNNING.
[2018-04-09 13:54] LABS: Add Manual Diff / Slide Review NO; Basophils Percent Auto 1.1 % (0-2); Eosinophils Percent Auto 0.6 % (2-4); Hematocrit 36.1 % (41-53); Hemoglobin 12.3 g/dL (13.5-17.5); Lymphocytes Percent Auto 22.2 % (25-40); Mean Corpuscular HGB Conc 33.9 % (30-36); Mean Corpuscular Hemoglobin 33.7 PG (26-34); Mean Corpuscular Volume 99.2 fL (80-100); Monocytes Percent Auto 8.7 % (3-14); Neutrophils Absolute Auto 5300 /uL (3000-5900); Neutrophils Percent Auto 67.4 % (50-75); Platelet Count 149 X10^3/uL (150-400); Red Blood Cell Count 3.64 X10^6/uL (4.5-5.9); Red Cell Distribution Width 14.6 % (11.6-14.8); White Blood Cell Count 7.8 X10^3/uL (4.5-11.0)
[2018-04-09 14:01] LABS: Alanine Aminotransferase 38 IU/L (21-72); Albumin 4.4 g/dL (3.5-5.0); Albumin Globulin Ratio 1.5 (1.0-2.8); Alkaline Phosphatase 62 U/L (38-126); Aspartate Aminotransferase 27 IU/L (17-59); BUN Creatinine Ratio 18.2 (6-22); Bilirubin Total 0.4 mg/dL (0.2-1.3); Blood Urea Nitrogen 20 mg/dL (9-20); Calcium 9.4 mg/dL (8.4-10.2); Carbon Dioxide 24 mmol/L (22-32); Chloride 109 mmol/L (98-107); Estimated Glomerular Filt Rate > 60.0 mL/min (>60); Globulin 2.9 g/dL (1.7-4.1); Glucose 108 mg/dL (80-110); Potassium 4.2 mmol/L (3.4-5.1); Sodium 146 mmol/L (137-145); Total Protein 7.3 g/dL (6.3-8.2)
[2018-04-09 14:02] VITALS: BP 142/76; PULSE 86; RESP 18; TEMP 36.5; O2SAT 98
--- NOTE | 2018-04-09 14:16 | ONC.PN ---
PN -Subjective Interval history: Diagnosis: Colon cancer involving the sigmoid colon, T3 N1, MSI stable. Previous treatment: 1. Surgical resection March 2017. 2. Adjuvant chemotherapy with FOLFOX for 12 cycles finishing March 2018. 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 Subsequently he underwent surgical resection March 13, 2017. One of 7 regional lymph nodes was positive for metastatic disease. Treatment with FOLFOX was initiated 10/09/2017 and finished in March. Since his last visit here, he has been feeling about the same. He has noted a little bit more neuropathy since his last dose of chemotherapy. He describes some numbness and tingling in his fingers and toes. It is not painful. It is not stopping him from any of his normal activities. He denies any shortness of breath or cough. His appetite has been good. No nausea or vomiting. Bowels have been moving normally. He is anxious to get back to his surgeon for potential ostomy reversal. TIMELINE: 1) Colorectal Cancer. Stage IIIB (pT3, pN1, M0). Diagnosis: 01/29/2017. Biopsy of the sigmoid mass. Pathology confirming a moderately differentiated adenocarcinoma. MSI stable (intact nuclear expression: MLH1, MSH 2, MSH6, and PMS2). 01/29/2017. Biopsy of left colon polyp at 50 cm. Portions of fragmented colorectal mucosa involved by moderately differentiated adenocarcinoma. 03/13/2017. Pathology confirming a invasive adenocarcinoma in the distal sigmoid colon measuring 37 x 32 x 21 mm. Low grade. Tumor extended through the muscularis propria into the adventitia without extending to the peritoneal surface. Resected margins including the proximal distal and circumferential negative. No LV I seen. No tumor deposit seen. 47 regional lymph nodes were identified 1 positive for disease without extranodal extension. 2) Diabetes, diagnosed ~10 years ago. Currently on Lantus and glipizide. Patient is also on lisinopril. Patient is not aware of any neuropathy, Recent EGFR on 01/30/2017 at >60 ml/min. 3) Hypercholesterolemia. 4) Malignant melanoma: First episode back, ~15 years ago. Second lesion right cheek ~ 5 years ago. Managed, surveillence with dermatology. DVT diagnosed during his chemotherapy. - Patient Self-Reported Symptoms SR Constitution: Fatigue/Malaise SR eye issues: Vision changes SR ears, nose, mouth, throat issues: Mouth sores SR respiratory issues: Mucous SR Cardiovascular issues: Shortness of breath with activity or lying flat SR Skin issues: Dry skin SR Gastrointestinal issues: Heartburn SR Musculoskeletal issues: Difficulty walking SR Neuro issues: Numbness or tingling SR Hematologic issues: Bleeding/bruising SR Endocrine issues: Cold intolerance Home Medications and Allergies Home Medications Medication Instructions Recorded Confirmed Type atorvastatin [Lipitor] 10 mg PO QDAY #0 01/29/17 04/09/18 History insulin glargine [Basaglar KwikPen 10 unit SQ QDAY #0 05/01/17 03/12/18 History U-100 Insulin] biotin 1 mcg PO DAILY 11/20/17 03/12/18 History glipizide 1 tab PO BID 12/04/17 01/15/18 History glipizide 5 mg tablet 5 mg PO DAILY 02/25/18 03/12/18 History apixaban [Eliquis] 5 mg PO BID 03/12/18 03/12/18 History Allergies Allergy/AdvReac Type Severity Reaction Status Date / Time No Known Drug Allergies Allergy Verified 12/18/17 08:44 Exam Vital signs: Last Vital Signs Temp 97.7 F 04/09/18 14:02 Pulse 86 04/09/18 14:02 Resp 18 04/09/18 14:02 BP 142/76 H 04/09/18 14:02 Pulse Ox 98 04/09/18 14:02 - Constitutional positive no acute distress, positive average body habitus - Routine HEENT Exam Head: Present: normocephalic, atraumatic Eye: Present: EOMI, PERRL. Absent: conjunctival icterus, scleral injection ENT: Present: mucous membranes moist, oropharynx clear - Routine Neck Exam Present: supple. Absent: lymphadenopathy, thyromegaly - Routine Respiratory Exam Present: Clear to auscultation bilaterally. Absent: rales, wheezes - Routine Cardiovascular Exam Present: RRR, S1, S2. Absent: murmur - Routine Abdominal Exam Present: soft, normoactive bowel sounds. Absent: tenderness, organomegaly, mass Comments: His ostomy in the right side of his abdomen is functioning well. - Routine Extremities Exam Present: edema. Absent: cyanosis, clubbing Comments: He has trace bilateral lower extremity edema. - Routine Back/Spine Exam Back/Spine: Absent: paraspinal tenderness, vertebral tenderness - Routine Skin Exam Present: intact. Absent: petechiae, rash - Routine Neurological Exam Present: alert, oriented X3 - Routine Psychiatric Exam Present: normal affect, normal thought process Results - Labs Laboratory Last Values WBC 7.8 X10^3/uL (4.5-11.0) 04/09/18 13:43 RBC 3.64 X10^6/uL (4.5-5.9) L 04/09/18 13:43 Hgb 12.3 g/dL (13.5-17.5) L 04/09/18 13:43 Hct 36.1 % (41-53) L 04/09/18 13:43 MCV 99.2 fL (80-100) 04/09/18 13:43 MCH 33.7 PG (26-34) 04/09/18 13:43 MCHC 33.9 % (30-36) 04/09/18 13:43 RDW 14.6 % (11.6-14.8) 04/09/18 13:43 Plt Count 149 X10^3/uL (150-400) L 04/09/18 13:43 Neut % (Auto) 67.4 % (50-75) 04/09/18 13:43 Lymph % (Auto) 22.2 % (25-40) L 04/09/18 13:43 [place] % (Auto) 8.7 % (3-14) 04/09/18 13:43 Eos % (Auto) 0.6 % (2-4) L 04/09/18 13:43 Baso % (Auto) 1.1 % (0-2) 04/09/18 13:43 Neut # (Auto) 5300 /uL (4285-2631) 04/09/18 13:43 Sodium 146 mmol/L (137-145) H 04/09/18 13:43 Potassium 4.2 mmol/L (3.4-5.1) 04/09/18 13:43 Chloride 109 mmol/L (98-107) H 04/09/18 13:43 Carbon Dioxide 24 mmol/L (22-32) 04/09/18 13:43 BUN 20 mg/dL (9-20) 04/09/18 13:43 Creatinine 1.10 mg/dL (0.66-1.25) 04/09/18 13:43 Estimated GFR > 60.0 mL/min (>60) 04/09/18 13:43 BUN/Creatinine Ratio 18.2 (6-22) 04/09/18 13:43 Glucose 108 mg/dL (80-110) 04/09/18 13:43 Calcium 9.4 mg/dL (8.4-10.2) 04/09/18 13:43 Iron 109 ug/dL (49-181) 01/01/18 08:45 TIBC 380 ug/dL (261-462) 01/01/18 08:45 % Saturation 29 % (20-50) 01/01/18 08:45 Transferrin 297 mg/dL (206-381) 01/01/18 08:45 Ferritin 181.0 ng/mL (17.9-464) 11/20/17 08:14 Total Bilirubin 0.4 mg/dL (0.2-1.3) 04/09/18 13:43 AST 27 IU/L (17-59) 04/09/18 13:43 ALT 38 IU/L (21-72) 04/09/18 13:43 Alkaline Phosphatase 62 U/L (38-126) 04/09/18 13:43 Total Protein 7.3 g/dL (6.3-8.2) 04/09/18 13:43 Albumin 4.4 g/dL (3.5-5.0) 04/09/18 13:43 Globulin 2.9 g/dL (1.7-4.1) 04/09/18 13:43 Albumin/Globulin Ratio 1.5 (1.0-2.8) 04/09/18 13:43 Carcinoembryonic Ag 2.2 ng/mL (0.1-3.0) 03/12/18 08:51 - Imaging Additional studies: Procedures Bypass Sigmoid Colon to Cutaneous, Open Approach (03/13/17) Control Bleeding in Peritoneal Cavity, Open Approach (03/13/17) Drainage of Peritoneal Cavity with Drainage Device, Percutaneous Approach (05/11/17) Excision of Mesenteric Lymphatic, Open Approach, Diagnostic (03/13/17) Insertion of Infusion Device into Superior Vena Cava, Percutaneous Approach (03/13/17) Inspection of Lower Intestinal Tract, Via Natural or Artificial Opening Endoscopic (03/13/17) Resection of Rectum, Open Approach (03/13/17) Resection of Sigmoid Colon, Open Approach (03/13/17) Transfusion of Nonautologous Red Blood Cells into Central Vein, Percutaneous Approach (03/13/17) Assessment and Plan (1) Colon cancer Problem details: 67-year-old man with stage III colon cancer. He has completed his adjuvant chemotherapy about a month ago and is recovering from the toxicity. He still has some neuropathy although it is not particularly severe at this point. I think it is okay for him to proceed with ostomy reversal whenever it is convenient for him and for his surgeon. He will return to clinic in about 3 months for follow-up. Reviewed follow-up recommendations. This would include physical exam with laboratory testing every 3 months for the 1st 2 years then every 6 months until 5 years. He should have a CT scan about once a year as well as a colonoscopy about a year from his previous 1. He will return to clinic here in about 3 months for follow-up with a CBC CEA and CMP. Will need to schedule a CT scan after that time. Current visit: No Status: Acute
[2018-04-09 19:43] LABS: HEMOLYSIS < 15 (0-50)
--- NOTE | 2018-04-17 14:31 | ONC.NAV ---
Description: Financial Assistance Activity: Pt stopped by the clinic with receipts for prescriptions that he would like reimbursement for from the [facility] Medical [facility] Fund. GRANULATING MACHINE OPERATOR was able to provide a check for $325 for him to take with him today. No further needs identified at this time.
--- NOTE | 2018-05-02 09:56 | ONC.NAV ---
Description: Financial Assistance Activity: Patient requested that the remaining $75.00 available to him through the [facility] Medical [facility] Fund be applied to his current bill. PHOTORADIO OPERATOR brought a check down to patient accounts and applied the funds, will send patient a receipt.
--- NOTE | 2018-06-07 11:51 | PC.NURSE ---
Pt called with questions regarding his medication Eliquis. Basically, he wanted to know if he could stop the med and if not he would need a refill. I spoke with CORPORATE EVENT PLANNER and she wanted him to remain on the medication. Based on this medications refill history, I called in a refill for 5mg tablets daily # 60 to [facility].
[2018-07-09 13:14] VITALS: BP 144/80; PULSE 72; RESP 18; TEMP 36.7; O2SAT 99
--- NOTE | 2018-07-09 13:32 | ONC.PN ---
PN -Subjective Interval history: Diagnosis: Colon cancer involving the sigmoid colon, T3 N1, MSI stable. Previous treatment: 1. Surgical resection March 2017. 2. Adjuvant chemotherapy with FOLFOX for 12 cycles finishing March 2018. 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 Subsequently he underwent surgical resection March 13, 2017. One of 7 regional lymph nodes was positive for metastatic disease. Treatment with FOLFOX was initiated 10/09/2017 and finished in March. Since his last visit here, he has undergone ostomy reversal. He did have some difficulty with wound healing and infection. Currently, he is feeling well. He is not having any pain. His appetite has been good. Bowels have been moving fairly well although somewhat thin. There has not been any blood in the stool. Strength and energy level have been fair. He denies any shortness of breath or cough. He has not noted any adenopathy. He still has some neuropathy involving the feet and to a lesser extent the hands. They are mostly numb and not painful. He did have a DVT last summer during his chemotherapy. He continues on Eliquis. He is wondering if it is safe for him to get a massage. TIMELINE: 1) Colorectal Cancer. Stage IIIB (pT3, pN1, M0). Diagnosis: 01/29/2017. Biopsy of the sigmoid mass. Pathology confirming a moderately differentiated adenocarcinoma. MSI stable (intact nuclear expression: MLH1, MSH 2, MSH6, and PMS2). 01/29/2017. Biopsy of left colon polyp at 50 cm. Portions of fragmented colorectal mucosa involved by moderately differentiated adenocarcinoma. 03/13/2017. Pathology confirming a invasive adenocarcinoma in the distal sigmoid colon measuring 37 x 32 x 21 mm. Low grade. Tumor extended through the muscularis propria into the adventitia without extending to the peritoneal surface. Resected margins including the proximal distal and circumferential negative. No LV I seen. No tumor deposit seen. 47 regional lymph nodes were identified 1 positive for disease without extranodal extension. 2) Diabetes, diagnosed ~10 years ago. Currently on Lantus and glipizide. Patient is also on lisinopril. Patient is not aware of any neuropathy, Recent EGFR on 01/30/2017 at >60 ml/min. 3) Hypercholesterolemia. 4) Malignant melanoma: First episode back, ~15 years ago. Second lesion right cheek ~ 5 years ago. Managed, surveillence with dermatology. DVT diagnosed during his chemotherapy. - Patient Self-Reported Symptoms SR Constitution: Fatigue/Malaise SR eye issues: Vision changes SR ears, nose, mouth, throat issues: Mouth sores SR respiratory issues: Mucous SR Cardiovascular issues: Shortness of breath with activity or lying flat SR Skin issues: Dry skin SR Gastrointestinal issues: Heartburn SR Musculoskeletal issues: Difficulty walking SR Neuro issues: Numbness or tingling, Tremors or shaking SR Hematologic issues: Bleeding/bruising SR Endocrine issues: Cold intolerance Home Medications and Allergies Home Medications Medication Instructions Recorded Confirmed Type atorvastatin [Lipitor] 10 mg PO QDAY #0 01/29/17 05/14/18 History insulin glargine [Basaglar KwikPen 20 - 25 unit SQ QPM #0 05/01/17 05/14/18 History U-100 Insulin] glipizide 5 mg PO BID #0 12/04/17 05/14/18 History apixaban [Eliquis] 5 mg PO BID 03/12/18 05/14/18 History acetaminophen 650 mg PO Q6HR PRN #90 tab 05/21/18 Rx alum-mag hydroxide-simeth [Mag-Al 30 ml PO Q6HR PRN #360 ml 05/21/18 Rx Plus] docusate sodium 100 mg PO BID #14 cap 05/21/18 Rx oxycodone 5 mg PO Q4HR PRN #30 tab 05/21/18 Rx sennosides [senna] 8.6 mg PO BEDTIME #10 tab 05/21/18 Rx vitamin B complex [B-Complex] 07/09/18 History Allergies Allergy/AdvReac Type Severity Reaction Status Date / Time No Known Drug Allergies Allergy Verified 05/14/18 07:04 Exam - Constitutional positive no acute distress, positive average body habitus - Routine HEENT Exam Head: Present: normocephalic, atraumatic Eye: Present: EOMI, PERRL. Absent: conjunctival icterus, scleral injection ENT: Present: mucous membranes moist, oropharynx clear - Routine Neck Exam Present: supple. Absent: lymphadenopathy, thyromegaly - Routine Respiratory Exam Present: Clear to auscultation bilaterally. Absent: rales, wheezes - Routine Cardiovascular Exam Present: RRR, S1, S2. Absent: murmur - Routine Abdominal Exam Present: soft, normoactive bowel sounds. Absent: tenderness, organomegaly, mass Comments: Surgical incisions are well healed. There is no erythema or purulence. - Routine Extremities Exam Present: edema Comments: He has trace bilateral lower extremity edema. - Routine Skin Exam Present: intact. Absent: petechiae, rash - Routine Neurological Exam Present: alert, oriented X3 - Routine Psychiatric Exam Present: normal affect, normal thought process Results - Labs Laboratory Last Values WBC 7.8 X10^3/uL (4.5-11.0) 04/09/18 13:43 RBC 3.64 X10^6/uL (4.5-5.9) L 04/09/18 13:43 Hgb 12.3 g/dL (13.5-17.5) L 04/09/18 13:43 Hct 36.1 % (41-53) L 04/09/18 13:43 MCV 99.2 fL (80-100) 04/09/18 13:43 MCH 33.7 PG (26-34) 04/09/18 13:43 MCHC 33.9 % (30-36) 04/09/18 13:43 RDW 14.6 % (11.6-14.8) 04/09/18 13:43 Plt Count 149 X10^3/uL (150-400) L 04/09/18 13:43 Neut % (Auto) 67.4 % (50-75) 04/09/18 13:43 Lymph % (Auto) 22.2 % (25-40) L 04/09/18 13:43 [place] % (Auto) 8.7 % (3-14) 04/09/18 13:43 Eos % (Auto) 0.6 % (2-4) L 04/09/18 13:43 Baso % (Auto) 1.1 % (0-2) 04/09/18 13:43 Neut # (Auto) 5300 /uL (6038-5649) 04/09/18 13:43 Sodium 146 mmol/L (137-145) H 04/09/18 13:43 Potassium 4.2 mmol/L (3.4-5.1) 04/09/18 13:43 Chloride 109 mmol/L (98-107) H 04/09/18 13:43 Carbon Dioxide 24 mmol/L (22-32) 04/09/18 13:43 BUN 20 mg/dL (9-20) 04/09/18 13:43 Creatinine 1.10 mg/dL (0.66-1.25) 04/09/18 13:43 Estimated GFR > 60.0 mL/min (>60) 04/09/18 13:43 BUN/Creatinine Ratio 18.2 (6-22) 04/09/18 13:43 Glucose 108 mg/dL (80-110) 04/09/18 13:43 Calcium 9.4 mg/dL (8.4-10.2) 04/09/18 13:43 Iron 109 ug/dL (49-181) 01/01/18 08:45 TIBC 380 ug/dL (261-462) 01/01/18 08:45 % Saturation 29 % (20-50) 01/01/18 08:45 Transferrin 297 mg/dL (206-381) 01/01/18 08:45 Ferritin 181.0 ng/mL (17.9-464) 11/20/17 08:14 Total Bilirubin 0.4 mg/dL (0.2-1.3) 04/09/18 13:43 AST 27 IU/L (17-59) 04/09/18 13:43 ALT 38 IU/L (21-72) 04/09/18 13:43 Alkaline Phosphatase 62 U/L (38-126) 04/09/18 13:43 Total Protein 7.3 g/dL (6.3-8.2) 04/09/18 13:43 Albumin 4.4 g/dL (3.5-5.0) 04/09/18 13:43 Globulin 2.9 g/dL (1.7-4.1) 04/09/18 13:43 Albumin/Globulin Ratio 1.5 (1.0-2.8) 04/09/18 13:43 Carcinoembryonic Ag 2.0 ng/mL (0.1-3.0) 04/09/18 13:43 - Imaging Additional studies: Procedures Bypass Sigmoid Colon to Cutaneous, Open Approach (03/13/17) Control Bleeding in Peritoneal Cavity, Open Approach (03/13/17) Excision of Ileum, Open Approach (05/14/18) Excision of Mesenteric Lymphatic, Open Approach, Diagnostic (03/13/17) Insertion of Infusion Device into Superior Vena Cava, Percutaneous Approach (03/13/17) Inspection of Lower Intestinal Tract, Via Natural or Artificial Opening Endoscopic (03/13/17) Repair Abdominal Wall, Open Approach (05/14/18) Resection of Rectum, Open Approach (03/13/17) Resection of Sigmoid Colon, Open Approach (03/13/17) Transfusion of Nonautologous Red Blood Cells into Central Vein, Percutaneous Approach (03/13/17) Assessment and Plan (1) Colon cancer Problem details: 67-year-old man with stage III colon cancer. He has no evidence of recurrence in his CEA is normal. He will return to clinic in 3 months for follow-up. He will be due for CT scan around that time. He tells me that he is scheduled for a colonoscopy around November. Current visit: No Status: Acute
[2018-10-09 09:55] LABS: Add Manual Diff / Slide Review NO; Basophils Absolute Auto 0 /uL (0-100); Basophils Percent Auto 0.9 % (0-2); Eosinophils Absolute Auto 100 /uL (0-450); Eosinophils Percent Auto 1.8 % (2-4); Hematocrit 36.8 % (41-53); Hemoglobin 12.5 g/dL (13.5-17.5); Lymphocytes Absolute Auto 1500 /uL (1100-4500); Mean Corpuscular HGB Conc 33.9 % (30-36); Mean Corpuscular Hemoglobin 30.2 PG (26-34); Mean Corpuscular Volume 88.9 fL (80-100); Monocytes Absolute Auto 400 /uL (0-900); Monocytes Percent Auto 7.5 % (3-14); Neutrophils Absolute Auto 3300 /uL (1500-7000); Neutrophils Percent Auto 61.8 % (50-75); Platelet Count 166 X10^3/uL (150-400); Red Blood Cell Count 4.13 X10^6/uL (4.5-5.9); White Blood Cell Count 5.3 X10^3/uL (4.5-11.0)
[2018-10-09 10:01] LABS: Alanine Aminotransferase 37 IU/L (21-72); Albumin 4.3 g/dL (3.5-5.0); Albumin Globulin Ratio 1.9 (1.0-2.8); Alkaline Phosphatase 66 U/L (38-126); Aspartate Aminotransferase 27 IU/L (17-59); BUN Creatinine Ratio 18.2 (6-22); Bilirubin Total 0.5 mg/dL (0.2-1.3); Blood Urea Nitrogen 20 mg/dL (9-20); Carbon Dioxide 24 mmol/L (22-32); Chloride 105 mmol/L (98-107); Estimated Glomerular Filt Rate > 60.0 mL/min (>60); Globulin 2.3 g/dL (1.7-4.1); Glucose 131 mg/dL (80-110); HEMOLYSIS < 15 (0-50); Potassium 4.8 mmol/L (3.4-5.1); Sodium 140 mmol/L (137-145); Total Protein 6.6 g/dL (6.3-8.2)
[2018-10-09 10:31] LABS: Carcinoembryonic Antigen 1.8 ng/mL (0.1-3.0)
[2018-10-15 11:05] VITALS: BP 135/77; PULSE 87; RESP 18; TEMP 36.5; O2SAT 98
--- NOTE | 2018-10-15 11:26 | P.PNONC_ITS ---
PN -Subjective Interval history: Diagnosis: Colon cancer involving the sigmoid colon, T3 N1, MSI stable. Previous treatment: 1. Surgical resection March 2017. 2. Adjuvant chemotherapy with FOLFOX for 12 cycles finishing March 2018. Interval history: Vadim is a 67-year-old male with stage IIIB invasive adenocarcinoma of the distal sigmoid colon. He underwent surgical resection March 13, 2017. One of 7 regional lymph nodes was positive for metastatic disease. Treatment with FOLFOX was initiated 10/09/2017 and finished in [facility]. Since his last visit here, he has been feeling generally well. He has no specific complaints today. He does note some ongoing neuropathy. He has numbness in both his hands and in his legs. It is not interfering in his activities. It is not painful. He thinks that it really is been stable or minimally changed over the last 3 months. His appetite has been good. Strength and energy level have been normal. He denies any new aches or pains. No shortness of breath or cough. No GI complaints. He is scheduled for a colonoscopy in November. He did have a DVT last summer during his chemotherapy. He continues on Eliquis. TIMELINE: 1) Colorectal Cancer. Stage IIIB (pT3, pN1, M0). Diagnosis: 01/29/2017. Biopsy of the sigmoid mass. Pathology confirming a moderately differentiated adenocarcinoma. MSI stable (intact nuclear expression: MLH1, MSH 2, MSH6, and PMS2). 01/29/2017. Biopsy of left colon polyp at 50 cm. Portions of fragmented colorectal mucosa involved by moderately differentiated adenocarcinoma. 03/13/2017. Pathology confirming a invasive adenocarcinoma in the distal sigmoid colon measuring 37 x 32 x 21 mm. Low grade. Tumor extended through the muscularis propria into the adventitia without extending to the peritoneal surface. Resected margins including the proximal distal and circumferential negative. No LV I seen. No tumor deposit seen. 47 regional lymph nodes were identified 1 positive for disease without extranodal extension. 2) Diabetes, diagnosed ~10 years ago. Currently on Lantus and glipizide. Patient is also on lisinopril. Patient is not aware of any neuropathy, Recent EGFR on 01/30/2017 at >60 ml/min. 3) Hypercholesterolemia. 4) Malignant melanoma: First episode back, ~15 years ago. Second lesion right cheek ~ 5 years ago. Managed, surveillence with dermatology. DVT diagnosed during his chemotherapy. - Patient Self-Reported Symptoms SR Constitution: Fatigue/Malaise SR eye issues: Vision changes SR ears, nose, mouth, throat issues: Mouth sores SR respiratory issues: Mucous SR Cardiovascular issues: Shortness of breath with activity or lying flat SR Skin issues: Dry skin SR Gastrointestinal issues: Heartburn SR Musculoskeletal issues: Difficulty walking SR Neuro issues: Numbness or tingling, Tremors or shaking SR Hematologic issues: Bleeding/bruising SR Endocrine issues: Cold intolerance Home Medications and Allergies Home Medications Medication Instructions Recorded Confirmed Type atorvastatin [Lipitor] 10 mg PO QDAY #0 01/29/17 10/15/18 History Basaglar KwikPen U-100 Insulin 20 - 25 unit SQ QPM #0 05/01/17 10/15/18 History glipizide 5 mg PO BID #0 12/04/17 10/15/18 History Eliquis 5 mg PO BID 03/12/18 10/15/18 History acetaminophen 650 mg PO Q6HR PRN #90 tab 05/21/18 10/15/18 Rx oxycodone 5 mg PO Q4HR PRN #30 tab 05/21/18 10/15/18 Rx Allergies Allergy/AdvReac Type Severity Reaction Status Date / Time No Known Drug Allergies Allergy Verified 05/14/18 07:04 Exam Vital signs: Vital Signs Temp Pulse Resp BP Pulse Ox 10/15/18 11:05 97.7 F 87 18 135/77 98 Intake and Output 10/14/18 10/15/18 10/15/18 23:59 07:59 15:59 Other: Weight 101.6 kg Patient Weight 10/15/18 23:59 Weight 101.6 kg - Constitutional positive no acute distress, positive average body habitus - Routine HEENT Exam Head: Present: normocephalic, atraumatic Eye: Present: EOMI, PERRL. Absent: conjunctival icterus, scleral injection ENT: Present: mucous membranes moist, oropharynx clear - Routine Neck Exam Present: supple. Absent: lymphadenopathy, thyromegaly - Routine Respiratory Exam Present: Clear to auscultation bilaterally. Absent: rales, wheezes - Routine Cardiovascular Exam Present: RRR, S1, S2. Absent: murmur - Routine Abdominal Exam Present: soft, normoactive bowel sounds. Absent: tenderness, organomegaly, mass - Routine Extremities Exam Absent: cyanosis, clubbing, edema - Routine Back/Spine Exam Back/Spine: Absent: paraspinal tenderness, vertebral tenderness - Routine Skin Exam Present: intact. Absent: petechiae, rash - Routine Neurological Exam Present: alert, oriented X3 He is hard of hearing. - Routine Psychiatric Exam Present: normal affect, normal thought process Results - Labs Laboratory Last Values WBC 5.3 X10^3/uL (4.5-11.0) 10/09/18 08:40 RBC 4.13 X10^6/uL (4.5-5.9) L 10/09/18 08:40 Hgb 12.5 g/dL (13.5-17.5) L 10/09/18 08:40 Hct 36.8 % (41-53) L 10/09/18 08:40 MCV 88.9 fL (80-100) 10/09/18 08:40 MCH 30.2 PG (26-34) 10/09/18 08:40 MCHC 33.9 % (30-36) 10/09/18 08:40 RDW 14.0 % (11.6-14.8) 10/09/18 08:40 Plt Count 166 X10^3/uL (150-400) 10/09/18 08:40 Neut % (Auto) 61.8 % (50-75) 10/09/18 08:40 Lymph % (Auto) 28.0 % (25-40) 10/09/18 08:40 [place] % (Auto) 7.5 % (3-14) 10/09/18 08:40 Eos % (Auto) 1.8 % (2-4) L 10/09/18 08:40 Baso % (Auto) 0.9 % (0-2) 10/09/18 08:40 Neut # (Auto) 3300 /uL (2480-8428) 10/09/18 08:40 Lymph # (Auto) 1500 /uL (9549-3305) 10/09/18 08:40 [place] # (Auto) 400 /uL (0-900) 10/09/18 08:40 Eos # (Auto) 100 /uL (0-450) 10/09/18 08:40 Baso # (Auto) 0 /uL (0-100) 10/09/18 08:40 Sodium 140 mmol/L (137-145) 10/09/18 08:40 Potassium 4.8 mmol/L (3.4-5.1) 10/09/18 08:40 Chloride 105 mmol/L (98-107) 10/09/18 08:40 Carbon Dioxide 24 mmol/L (22-32) 10/09/18 08:40 BUN 20 mg/dL (9-20) 10/09/18 08:40 Creatinine 1.10 mg/dL (0.66-1.25) 10/09/18 08:40 Estimated GFR > 60.0 mL/min (>60) 10/09/18 08:40 BUN/Creatinine Ratio 18.2 (6-22) 10/09/18 08:40 Glucose 131 mg/dL (80-110) H 10/09/18 08:40 Calcium 9.0 mg/dL (8.4-10.2) 10/09/18 08:40 Iron 109 ug/dL (49-181) 01/01/18 08:45 TIBC 380 ug/dL (261-462) 01/01/18 08:45 % Saturation 29 % (20-50) 01/01/18 08:45 Transferrin 297 mg/dL (206-381) 01/01/18 08:45 Ferritin 181.0 ng/mL (17.9-464) 11/20/17 08:14 Total Bilirubin 0.5 mg/dL (0.2-1.3) 10/09/18 08:40 AST 27 IU/L (17-59) 10/09/18 08:40 ALT 37 IU/L (21-72) 10/09/18 08:40 Alkaline Phosphatase 66 U/L (38-126) 10/09/18 08:40 Total Protein 6.6 g/dL (6.3-8.2) 10/09/18 08:40 Albumin 4.3 g/dL (3.5-5.0) 10/09/18 08:40 Globulin 2.3 g/dL (1.7-4.1) 10/09/18 08:40 Albumin/Globulin Ratio 1.9 (1.0-2.8) 10/09/18 08:40 Carcinoembryonic Ag 1.8 ng/mL (0.1-3.0) 10/09/18 08:40 - Imaging Additional studies: Procedures Bypass Sigmoid Colon to Cutaneous, Open Approach (03/13/17) Control Bleeding in Peritoneal Cavity, Open Approach (03/13/17) Excision of Mesenteric Lymphatic, Open Approach, Diagnostic (03/13/17) Insertion of Infusion Device into Superior Vena Cava, Percutaneous Approach (03/13/17) Inspection of Lower Intestinal Tract, Via Natural or Artificial Opening Endoscopic (03/13/17) Resection of Rectum, Open Approach (03/13/17) Resection of Sigmoid Colon, Open Approach (03/13/17) Transfusion of Nonautologous Red Blood Cells into Central Vein, Percutaneous Approach (03/13/17) Assessment and Plan (1) Colon cancer Problem details: 67-year-old man with stage III colon cancer. He has no evidence of recurrence in his CEA is normal. his CT scan shows no evidence of recurrent disease. He does have a stable cyst in the kidney. He will be due for a colonoscopy in November. He will return to clinic in 3 months for follow-up. I think he can have his port taken out whenever it is convenient for him. He will also stop his anticoagulation when he runs out of his current prescription. Current visit: No Status: Acute
[2018-12-30 09:51] LABS: Add Manual Diff / Slide Review NO; Basophils Absolute Auto 100 /uL (0-100); Eosinophils Absolute Auto 100 /uL (0-450); Eosinophils Percent Auto 1.7 % (2-4); Hematocrit 36.9 % (41-53); Hemoglobin 12.5 g/dL (13.5-17.5); Lymphocytes Absolute Auto 1100 /uL (1100-4500); Lymphocytes Percent Auto 20.3 % (25-40); Mean Corpuscular Hemoglobin 30.9 PG (26-34); Mean Corpuscular Volume 90.9 fL (80-100); Monocytes Absolute Auto 300 /uL (0-900); Monocytes Percent Auto 5.9 % (3-14); Neutrophils Absolute Auto 3900 /uL (1500-7000); Neutrophils Percent Auto 71.1 % (50-75); Platelet Count 152 X10^3/uL (150-400); Red Blood Cell Count 4.06 X10^6/uL (4.5-5.9); White Blood Cell Count 5.5 X10^3/uL (4.5-11.0)
[2018-12-30 10:06] LABS: Alanine Aminotransferase 31 IU/L (21-72); Albumin 4.3 g/dL (3.5-5.0); Albumin Globulin Ratio 1.5 (1.0-2.8); Alkaline Phosphatase 89 U/L (38-126); Aspartate Aminotransferase 18 IU/L (17-59); BUN Creatinine Ratio 23.6 (6-22); Bilirubin Total 0.4 mg/dL (0.2-1.3); Blood Urea Nitrogen 26 mg/dL (9-20); Calcium 9.1 mg/dL (8.4-10.2); Carbon Dioxide 24 mmol/L (22-32); Chloride 105 mmol/L (98-107); Estimated Glomerular Filt Rate > 60.0 mL/min (>60); Globulin 2.8 g/dL (1.7-4.1); Glucose 381 mg/dL (80-110); HEMOLYSIS < 15 (0-50); Potassium 5.1 mmol/L (3.4-5.1); Sodium 140 mmol/L (137-145); Total Protein 7.1 g/dL (6.3-8.2)
[2018-12-30 10:36] LABS: Carcinoembryonic Antigen 2.9 ng/mL (0.1-3.0)
[2019-01-07 13:49] VITALS: BP 130/73; PULSE 73; RESP 16; TEMP 37.2; O2SAT 98
--- NOTE | 2019-01-07 14:11 | P.PNONC_ITS ---
PN -Subjective Interval history: Diagnosis: Colon cancer involving the sigmoid colon, T3 N1, MSI stable. Previous treatment: 1. Surgical resection March 2017. 2. Adjuvant chemotherapy with FOLFOX for 12 cycles finishing March 2018. 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 He underwent surgical resection March 13, 2017. One of 7 regional lymph nodes was positive for metastatic disease. Treatment with FOLFOX was initiated 10/09/[address] [facility]. Since his last visit here, he has been feeling generally well and has no specific complaints today. He did have a colonoscopy with a couple of small polyps found. He is due for another 1 in 3 years. He also had his port removed. He denies any new aches or pains. No fevers chills or sweats. His appetite has been good. No nausea or vomiting. Bowels have been moving normally. He denies any other changes in his health. TIMELINE: 1) Colorectal Cancer. Stage IIIB (pT3, pN1, M0). Diagnosis: 01/29/2017. Biopsy of the sigmoid mass. Pathology confirming a moderately differentiated adenocarcinoma. MSI stable (intact nuclear expression: MLH1, MSH 2, MSH6, and PMS2). 01/29/2017. Biopsy of left colon polyp at 50 cm. Portions of fragmented colorectal mucosa involved by moderately differentiated adenocarcinoma. 03/13/2017. Pathology confirming a invasive adenocarcinoma in the distal sigmoid colon measuring 37 x 32 x 21 mm. Low grade. Tumor extended through the muscularis propria into the adventitia without extending to the peritoneal surface. Resected margins including the proximal distal and circumferential negative. No LV I seen. No tumor deposit seen. 47 regional lymph nodes were identified 1 positive for disease without extranodal extension. 2) Diabetes, diagnosed ~10 years ago. Currently on Lantus and glipizide. Patient is also on lisinopril. Patient is not aware of any neuropathy, Recent EGFR on 01/30/2017 at >60 ml/min. 3) Hypercholesterolemia. 4) Malignant melanoma: First episode back, ~15 years ago. Second lesion right cheek ~ 5 years ago. Managed, surveillence with dermatology. DVT diagnosed during his chemotherapy. - Patient Self-Reported Symptoms SR Constitution: Fatigue/Malaise SR eye issues: Vision changes SR ears, nose, mouth, throat issues: Mouth sores SR respiratory issues: Mucous SR Cardiovascular issues: Shortness of breath with activity or lying flat SR Skin issues: Dry skin SR Gastrointestinal issues: Heartburn SR Musculoskeletal issues: Difficulty walking SR Neuro issues: Numbness or tingling, Tremors or shaking SR Hematologic issues: Bleeding/bruising SR Endocrine issues: Cold intolerance Home Medications and Allergies Home Medications Medication Instructions Recorded Confirmed Type atorvastatin [Lipitor] 20 mg PO QPM #0 01/29/17 11/07/18 History Basaglar KwikPen U-100 Insulin 20 - 25 unit SQ QPM #0 05/01/17 11/07/18 History glipizide 5 mg PO BID #0 12/04/17 11/07/18 History acetaminophen 650 mg PO Q6HR PRN #90 tab 05/21/18 10/22/18 Rx oxycodone 5 mg PO Q4HR PRN #30 tab 05/21/18 10/22/18 Rx olmesartan 20 mg PO DAILY 01/07/19 01/07/19 History Allergies Allergy/AdvReac Type Severity Reaction Status Date / Time No Known Drug Allergies Allergy Verified 12/05/18 12:25 Exam Vital signs: Vital Signs Temp Pulse Resp BP Pulse Ox 01/07/19 13:49 98.9 F 73 16 130/73 98 Intake and Output 01/06/19 01/07/19 01/07/19 23:59 07:59 15:59 Other: Weight 96.5 kg Patient Weight 01/07/19 23:59 Weight 96.5 kg - Constitutional positive no acute distress, positive average body habitus - Routine HEENT Exam Head: Present: normocephalic, atraumatic Eye: Present: EOMI, PERRL. Absent: conjunctival icterus ENT: Present: mucous membranes moist, oropharynx clear - Routine Neck Exam Present: supple. Absent: lymphadenopathy, thyromegaly - Routine Respiratory Exam Present: Clear to auscultation bilaterally. Absent: rales, wheezes - Routine Cardiovascular Exam Present: RRR, S1, S2. Absent: murmur - Routine Abdominal Exam Present: soft, normoactive bowel sounds. Absent: tenderness, organomegaly, mass - Routine Extremities Exam Absent: cyanosis, clubbing, edema - Routine Back/Spine Exam Back/Spine: Absent: vertebral tenderness - Routine Skin Exam Present: intact. Absent: petechiae, rash - Routine Neurological Exam Present: alert, oriented X3 - Routine Psychiatric Exam Present: normal affect, normal thought process Results - Labs Laboratory Last Values WBC 5.5 X10^3/uL (4.5-11.0) 12/30/18 09:39 RBC 4.06 X10^6/uL (4.5-5.9) L 12/30/18 09:39 Hgb 12.5 g/dL (13.5-17.5) L 12/30/18 09:39 Hct 36.9 % (41-53) L 12/30/18 09:39 MCV 90.9 fL (80-100) 12/30/18 09:39 MCH 30.9 PG (26-34) 12/30/18 09:39 MCHC 34.0 % (30-36) 12/30/18 09:39 RDW 13.0 % (11.6-14.8) 12/30/18 09:39 Plt Count 152 X10^3/uL (150-400) 12/30/18 09:39 Neut % (Auto) 71.1 % (50-75) 12/30/18 09:39 Lymph % (Auto) 20.3 % (25-40) L 12/30/18 09:39 Crenshaw % (Auto) 5.9 % (3-14) 12/30/18 09:39 Eos % (Auto) 1.7 % (2-4) L 12/30/18 09:39 Baso % (Auto) 1.0 % (0-2) 12/30/18 09:39 Neut # (Auto) 3900 /uL (6889-3589) 12/30/18 09:39 Lymph # (Auto) 1100 /uL (0077-7266) 12/30/18 09:39 Crenshaw # (Auto) 300 /uL (0-900) 12/30/18 09:39 Eos # (Auto) 100 /uL (0-450) 12/30/18 09:39 Baso # (Auto) 100 /uL (0-100) 12/30/18 09:39 Sodium 140 mmol/L (137-145) 12/30/18 09:39 Potassium 5.1 mmol/L (3.4-5.1) 12/30/18 09:39 Chloride 105 mmol/L (98-107) 12/30/18 09:39 Carbon Dioxide 24 mmol/L (22-32) 12/30/18 09:39 BUN 26 mg/dL (9-20) H 12/30/18 09:39 Creatinine 1.10 mg/dL (0.66-1.25) 12/30/18 09:39 Estimated GFR > 60.0 mL/min (>60) 12/30/18 09:39 BUN/Creatinine Ratio 23.6 (6-22) H 12/30/18 09:39 Glucose 381 mg/dL (80-110) H 12/30/18 09:39 Calcium 9.1 mg/dL (8.4-10.2) 12/30/18 09:39 Iron 109 ug/dL (49-181) 01/01/18 08:45 TIBC 380 ug/dL (261-462) 01/01/18 08:45 % Saturation 29 % (20-50) 01/01/18 08:45 Transferrin 297 mg/dL (206-381) 01/01/18 08:45 Ferritin 181.0 ng/mL (17.9-464) 11/20/17 08:14 Total Bilirubin 0.4 mg/dL (0.2-1.3) 12/30/18 09:39 AST 18 IU/L (17-59) 12/30/18 09:39 ALT 31 IU/L (21-72) 12/30/18 09:39 Alkaline Phosphatase 89 U/L (38-126) 12/30/18 09:39 Total Protein 7.1 g/dL (6.3-8.2) 12/30/18 09:39 Albumin 4.3 g/dL (3.5-5.0) 12/30/18 09:39 Globulin 2.8 g/dL (1.7-4.1) 12/30/18 09:39 Albumin/Globulin Ratio 1.5 (1.0-2.8) 12/30/18 09:39 Carcinoembryonic Ag 2.9 ng/mL (0.1-3.0) 12/30/18 09:39 - Imaging Additional studies: Procedures Bypass Sigmoid Colon to Cutaneous, Open Approach (03/13/17) Control Bleeding in Peritoneal Cavity, Open Approach (03/13/17) Excision of Mesenteric Lymphatic, Open Approach, Diagnostic (03/13/17) Insertion of Infusion Device into Superior Vena Cava, Percutaneous Approach (03/13/17) Inspection of Lower Intestinal Tract, Via Natural or Artificial Opening Endoscopic (03/13/17) Resection of Rectum, Open Approach (03/13/17) Resection of Sigmoid Colon, Open Approach (03/13/17) Transfusion of Nonautologous Red Blood Cells into Central Vein, Percutaneous Approach (03/13/17) Assessment and Plan (1) Colon cancer Problem details: 68-year-old man with stage III colon cancer. He has no evidence of recurrence in his CEA is normal. He has no evidence of disease He will return to clinic in 3 months for follow-up. Current visit: No Status: Acute
[2019-04-08 10:30] VITALS: BP 133/73; PULSE 73; RESP 18; TEMP 36.9; O2SAT 100
--- NOTE | 2019-04-08 11:14 | P.PNONC_ITS ---
PN -Subjective Interval history: Diagnosis: Colon cancer involving the sigmoid colon, T3 N1, MSI stable. Previous treatment: 1. Surgical resection March 2017. 2. Adjuvant chemotherapy with FOLFOX for 12 cycles finishing March 2018. 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 He underwent surgical resection March 13, 2017. One of 7 regional lymph nodes was positive for metastatic disease. Treatment with FOLFOX was initiated 10/09/2017 and finished in [facility]. Since his last visit here, he has been feeling generally well and has no specific complaints today. He denies any new aches or pains. He has had a little bit of discomfort in his back the attributes to physical therapy. He still has some neuropathy that is been stable. He describes numbness or tingling sensation in the hands and in his feet below the knees. It has been annoying but not interfering in his activities. It does not seem to be worsening. His appetite has been good. His weight has been stable. He has had a lot of variation in his bowel movements but no blood in the stool. He denies any shortness of breath or cough. No unusual bleeding or bruising. He denies any other changes in his health. TIMELINE: 1) Colorectal Cancer. Stage IIIB (pT3, pN1, M0). Diagnosis: 01/29/2017. Biopsy of the sigmoid mass. Pathology confirming a moderately differentiated adenocarcinoma. MSI stable (intact nuclear expression: MLH1, MSH 2, MSH6, and PMS2). 01/29/2017. Biopsy of left colon polyp at 50 cm. Portions of fragmented colorectal mucosa involved by moderately differentiated adenocarcinoma. 03/13/2017. Pathology confirming a invasive adenocarcinoma in the distal sigmoid colon measuring 37 x 32 x 21 mm. Low grade. Tumor extended through the muscularis propria into the adventitia without extending to the peritoneal surface. Resected margins including the proximal distal and circumferential negative. No LV I seen. No tumor deposit seen. 47 regional lymph nodes were identified 1 positive for disease without extranodal extension. 2) Diabetes, diagnosed ~10 years ago. Currently on Lantus and glipizide. Patient is also on lisinopril. Patient is not aware of any neuropathy, Recent EGFR on 01/30/2017 at >60 ml/min. 3) Hypercholesterolemia. 4) Malignant melanoma: First episode back, ~15 years ago. Second lesion right cheek ~ 5 years ago. Managed, surveillence with dermatology. DVT diagnosed during his chemotherapy. - Patient Self-Reported Symptoms SR Constitution: Fatigue/Malaise SR eye issues: Vision changes SR ears, nose, mouth, throat issues: Mouth sores SR respiratory issues: Mucous SR Cardiovascular issues: Shortness of breath with activity or lying flat SR Skin issues: Dry skin SR Gastrointestinal issues: Heartburn SR Musculoskeletal issues: Difficulty walking SR Neuro issues: Numbness or tingling SR Hematologic issues: Bleeding/bruising SR Endocrine issues: Cold intolerance Home Medications and Allergies Home Medications Medication Instructions Recorded Confirmed Type atorvastatin [Lipitor] 20 mg PO QPM #0 01/29/17 04/08/19 History Basaglar KwikPen U-100 Insulin 30 unit SQ QPM #0 05/01/17 04/08/19 History glipizide 5 mg PO BID #0 12/04/17 04/08/19 History acetaminophen 650 mg PO Q6HR PRN #90 tab 05/21/18 04/08/19 Rx olmesartan 20 mg PO DAILY 01/07/19 04/08/19 History Allergies Allergy/AdvReac Type Severity Reaction Status Date / Time No Known Drug Allergies Allergy Verified 12/05/18 12:25 Exam Vital signs: Vital Signs Temp Pulse Resp BP Pulse Ox 04/08/19 10:30 98.4 F 73 18 133/73 100 Intake and Output 04/07/19 04/08/19 04/08/19 23:59 07:59 15:59 Other: Weight 97 kg Patient Weight 04/08/19 23:59 Weight 97 kg - Constitutional positive no acute distress, positive average body habitus - Routine HEENT Exam Head: Present: normocephalic, atraumatic Eye: Present: EOMI, PERRL. Absent: conjunctival icterus, scleral injection ENT: Present: mucous membranes moist, oropharynx clear - Routine Neck Exam Present: supple. Absent: lymphadenopathy, thyromegaly - Routine Respiratory Exam Present: Clear to auscultation bilaterally. Absent: rales, wheezes - Routine Cardiovascular Exam Present: RRR, S1, S2. Absent: murmur - Routine Abdominal Exam Present: soft, normoactive bowel sounds. Absent: tenderness, organomegaly, mass - Routine Extremities Exam Absent: cyanosis, clubbing, edema - Routine Back/Spine Exam Back/Spine: Absent: vertebral tenderness - Routine Skin Exam Present: intact. Absent: petechiae, rash - Routine Neurological Exam Present: alert, oriented X3 - Routine Psychiatric Exam Present: normal affect, normal thought process Results - Labs Laboratory Last Values WBC 5.5 X10^3/uL (4.5-11.0) 12/30/18 09:39 RBC 4.06 X10^6/uL (4.5-5.9) L 12/30/18 09:39 Hgb 12.5 g/dL (13.5-17.5) L 12/30/18 09:39 Hct 36.9 % (41-53) L 12/30/18 09:39 MCV 90.9 fL (80-100) 12/30/18 09:39 MCH 30.9 PG (26-34) 12/30/18 09:39 MCHC 34.0 % (30-36) 12/30/18 09:39 RDW 13.0 % (11.6-14.8) 12/30/18 09:39 Plt Count 152 X10^3/uL (150-400) 12/30/18 09:39 Neut % (Auto) 71.1 % (50-75) 12/30/18 09:39 Lymph % (Auto) 20.3 % (25-40) L 12/30/18 09:39 Mccreary % (Auto) 5.9 % (3-14) 12/30/18 09:39 Eos % (Auto) 1.7 % (2-4) L 12/30/18 09:39 Baso % (Auto) 1.0 % (0-2) 12/30/18 09:39 Neut # (Auto) 3900 /uL (0939-9566) 12/30/18 09:39 Lymph # (Auto) 1100 /uL (0930-6043) 12/30/18 09:39 M[place]reary # (Auto) 300 /uL (0-900) 12/30/18 09:39 Eos # (Auto) 100 /uL (0-450) 12/30/18 09:39 Baso # (Auto) 100 /uL (0-100) 12/30/18 09:39 Sodium 140 mmol/L (137-145) 12/30/18 09:39 Potassium 5.1 mmol/L (3.4-5.1) 12/30/18 09:39 Chloride 105 mmol/L (98-107) 12/30/18 09:39 Carbon Dioxide 24 mmol/L (22-32) 12/30/18 09:39 BUN 26 mg/dL (9-20) H 12/30/18 09:39 Creatinine 1.10 mg/dL (0.66-1.25) 12/30/18 09:39 Estimated GFR > 60.0 mL/min (>60) 12/30/18 09:39 BUN/Creatinine Ratio 23.6 (6-22) H 12/30/18 09:39 Glucose 381 mg/dL (80-110) H 12/30/18 09:39 Calcium 9.1 mg/dL (8.4-10.2) 12/30/18 09:39 Iron 109 ug/dL (49-181) 01/01/18 08:45 TIBC 380 ug/dL (261-462) 01/01/18 08:45 % Saturation 29 % (20-50) 01/01/18 08:45 Transferrin 297 mg/dL (206-381) 01/01/18 08:45 Ferritin 181.0 ng/mL (17.9-464) 11/20/17 08:14 Total Bilirubin 0.4 mg/dL (0.2-1.3) 12/30/18 09:39 AST 18 IU/L (17-59) 12/30/18 09:39 ALT 31 IU/L (21-72) 12/30/18 09:39 Alkaline Phosphatase 89 U/L (38-126) 12/30/18 09:39 Total Protein 7.1 g/dL (6.3-8.2) 12/30/18 09:39 Albumin 4.3 g/dL (3.5-5.0) 12/30/18 09:39 Globulin 2.8 g/dL (1.7-4.1) 12/30/18 09:39 Albumin/Globulin Ratio 1.5 (1.0-2.8) 12/30/18 09:39 Carcinoembryonic Ag 2.9 ng/mL (0.1-3.0) 12/30/18 09:39 - Imaging Additional studies: Procedures Bypass Sigmoid Colon to Cutaneous, Open Approach (03/13/17) Control Bleeding in Peritoneal Cavity, Open Approach (03/13/17) Excision of Mesenteric Lymphatic, Open Approach, Diagnostic (03/13/17) Insertion of Infusion Device into Superior Vena Cava, Percutaneous Approach (03/13/17) Inspection of Lower Intestinal Tract, Via Natural or Artificial Opening Endoscopic (03/13/17) Resection of Rectum, Open Approach (03/13/17) Resection of Sigmoid Colon, Open Approach (03/13/17) Transfusion of Nonautologous Red Blood Cells into Central Vein, Percutaneous Approach (03/13/17) Assessment and Plan (1) Colon cancer Problem details: 68-year-old man with stage III colon cancer. He clinically as well but his CEA has increased from a baseline of about 2 to 5.4. We will plan on getting a CT scan of chest abdomen pelvis scheduled as soon as can be practically arranged. He will return to clinic here after that for follow-up. Current visit: No Status: Acute
[2019-04-08 12:55] LABS: Carcinoembryonic Antigen 5.4 ng/mL (0.1-3.0)
[2019-04-16 12:59] VITALS: BP 134/70; PULSE 75; RESP 18; TEMP 36.5; O2SAT 100
--- NOTE | 2019-04-16 13:17 | P.PNONC_ITS ---
PN -Subjective Interval history: Diagnosis: Colon cancer involving the sigmoid colon, T3 N1, MSI stable. Previous treatment: 1. Surgical resection March 2017. 2. Adjuvant chemotherapy with FOLFOX for 12 cycles finishing March 2018. 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 He underwent surgical resection March 13, 2017. One of 7 regional lymph nodes was positive for metastatic disease. Treatment with FOLFOX was initiated 10/09/2017 and finished in [facility]. At his last visit here, he was noted to have increase in his CEA. He is feeling well. He denies any new aches or pains. His appetite has been good. He has been dieting and exercising and trying to lose weight. He has not noted any adenopathy. No worsening shortness of breath or cough. He has had some pain in his back. He has been working with physical therapy in a chiropractor and it seems to be getting better. He denies any other changes in his health. TIMELINE: 1) Colorectal Cancer. Stage IIIB (pT3, pN1, M0). Diagnosis: 01/29/2017. Biopsy of the sigmoid mass. Pathology confirming a moderately differentiated adenocarcinoma. MSI stable (intact nuclear expression: MLH1, MSH 2, MSH6, and PMS2). 01/29/2017. Biopsy of left colon polyp at 50 cm. Portions of fragmented colorectal mucosa involved by moderately differentiated adenocarcinoma. 03/13/2017. Pathology confirming a invasive adenocarcinoma in the distal sigmoid colon measuring 37 x 32 x 21 mm. Low grade. Tumor extended through the muscularis propria into the adventitia without extending to the peritoneal surface. Resected margins including the proximal distal and circumferential negative. No LV I seen. No tumor deposit seen. 47 regional lymph nodes were identified 1 positive for disease without extranodal extension. 2) Diabetes, diagnosed ~10 years ago. Currently on Lantus and glipizide. Patient is also on lisinopril. Patient is not aware of any neuropathy, Recent EGFR on 01/30/2017 at >60 ml/min. 3) Hypercholesterolemia. 4) Malignant melanoma: First episode back, ~15 years ago. Second lesion right cheek ~ 5 years ago. Managed, surveillence with dermatology. DVT diagnosed during his chemotherapy. - Patient Self-Reported Symptoms SR Constitution: Fatigue/Malaise SR eye issues: Vision changes SR ears, nose, mouth, throat issues: Mouth sores SR respiratory issues: Mucous SR Cardiovascular issues: Shortness of breath with activity or lying flat SR Skin issues: Dry skin SR Gastrointestinal issues: Heartburn SR Musculoskeletal issues: Cold hands or feet SR Neuro issues: Numbness or tingling SR Hematologic issues: Bleeding/bruising SR Endocrine issues: Cold intolerance Home Medications and Allergies Home Medications Medication Instructions Recorded Confirmed Type atorvastatin [Lipitor] 20 mg PO QPM #0 01/29/17 04/16/19 History Basaglar KwikPen U-100 Insulin 30 unit SQ QPM #0 05/01/17 04/16/19 History glipizide 5 mg PO BID #0 12/04/17 04/16/19 History acetaminophen 650 mg PO Q6HR PRN #90 tab 05/21/18 04/16/19 Rx olmesartan 20 mg PO DAILY 01/07/19 04/16/19 History Allergies Allergy/AdvReac Type Severity Reaction Status Date / Time No Known Drug Allergies Allergy Verified 12/05/18 12:25 Exam Vital signs: Vital Signs Temp Pulse Resp BP Pulse Ox 04/16/19 12:59 97.7 F 75 18 134/70 100 Intake and Output 04/15/19 04/16/19 04/16/19 23:59 07:59 15:59 Other: Weight 94.3 kg Patient Weight 04/16/19 23:59 Weight 94.3 kg - Constitutional positive no acute distress, positive average body habitus Comments: He is not further examined. Results - Labs Laboratory Last Values WBC 5.5 X10^3/uL (4.5-11.0) 12/30/18 09:39 RBC 4.06 X10^6/uL (4.5-5.9) L 12/30/18 09:39 Hgb 12.5 g/dL (13.5-17.5) L 12/30/18 09:39 Hct 36.9 % (41-53) L 12/30/18 09:39 MCV 90.9 fL (80-100) 12/30/18 09:39 MCH 30.9 PG (26-34) 12/30/18 09:39 MCHC 34.0 % (30-36) 12/30/18 09:39 RDW 13.0 % (11.6-14.8) 12/30/18 09:39 Plt Count 152 X10^3/uL (150-400) 12/30/18 09:39 Neut % (Auto) 71.1 % (50-75) 12/30/18 09:39 Lymph % (Auto) 20.3 % (25-40) L 12/30/18 09:39 Garden % (Auto) 5.9 % (3-14) 12/30/18 09:39 Eos % (Auto) 1.7 % (2-4) L 12/30/18 09:39 Baso % (Auto) 1.0 % (0-2) 12/30/18 09:39 Neut # (Auto) 3900 /uL (3730-5293) 12/30/18 09:39 Lymph # (Auto) 1100 /uL (0737-2983) 12/30/18 09:39 Garden # (Auto) 300 /uL (0-900) 12/30/18 09:39 Eos # (Auto) 100 /uL (0-450) 12/30/18 09:39 Baso # (Auto) 100 /uL (0-100) 12/30/18 09:39 Sodium 140 mmol/L (137-145) 12/30/18 09:39 Potassium 5.1 mmol/L (3.4-5.1) 12/30/18 09:39 Chloride 105 mmol/L (98-107) 12/30/18 09:39 Carbon Dioxide 24 mmol/L (22-32) 12/30/18 09:39 BUN 26 mg/dL (9-20) H 12/30/18 09:39 Creatinine 1.10 mg/dL (0.66-1.25) 12/30/18 09:39 Estimated GFR > 60.0 mL/min (>60) 12/30/18 09:39 BUN/Creatinine Ratio 23.6 (6-22) H 12/30/18 09:39 Glucose 381 mg/dL (80-110) H 12/30/18 09:39 Calcium 9.1 mg/dL (8.4-10.2) 12/30/18 09:39 Iron 109 ug/dL (49-181) 01/01/18 08:45 TIBC 380 ug/dL (261-462) 01/01/18 08:45 % Saturation 29 % (20-50) 01/01/18 08:45 Transferrin 297 mg/dL (206-381) 01/01/18 08:45 Ferritin 181.0 ng/mL (17.9-464) 11/20/17 08:14 Total Bilirubin 0.4 mg/dL (0.2-1.3) 12/30/18 09:39 AST 18 IU/L (17-59) 12/30/18 09:39 ALT 31 IU/L (21-72) 12/30/18 09:39 Alkaline Phosphatase 89 U/L (38-126) 12/30/18 09:39 Total Protein 7.1 g/dL (6.3-8.2) 12/30/18 09:39 Albumin 4.3 g/dL (3.5-5.0) 12/30/18 09:39 Globulin 2.8 g/dL (1.7-4.1) 12/30/18 09:39 Albumin/Globulin Ratio 1.5 (1.0-2.8) 12/30/18 09:39 Carcinoembryonic Ag 5.4 ng/mL (0.1-3.0) H 04/08/19 11:34 - Imaging CT scan - abdomen: report reviewed (No evidence of recurrent or progressive disease. He had stable renal cyst. There is an indeterminate pulmonary nodule that had been stable as well. He had cystic area in the pancreas that also was stable.) CT scan - chest: report reviewed CT scan - pelvis: report reviewed Additional studies: Procedures Bypass Sigmoid Colon to Cutaneous, Open Approach (03/13/17) Control Bleeding in Peritoneal Cavity, Open Approach (03/13/17) Excision of Mesenteric Lymphatic, Open Approach, Diagnostic (03/13/17) Insertion of Infusion Device into Superior Vena Cava, Percutaneous Approach (03/13/17) Inspection of Lower Intestinal Tract, Via Natural or Artificial Opening Endoscopic (03/13/17) Resection of Rectum, Open Approach (03/13/17) Resection of Sigmoid Colon, Open Approach (03/13/17) Transfusion of Nonautologous Red Blood Cells into Central Vein, Percutaneous Approach (03/13/17) Assessment and Plan (1) Colon cancer Problem details: 68-year-old man with stage III colon cancer. He clinically as well but his CEA has increased from a baseline of about 2 to 5.4. Fortunately, his CT scan does not show any evidence of recurrence. He will return to clinic in about 2 months for follow-up with a repeat CEA. If he is doing well at that time, we will probably go back to every 3 month visits. Current visit: No Status: Acute
--- NOTE | 2019-05-06 10:36 | ONC.SCHED ---
Left . for patient to call back to schedule his follow up in June.
[2019-06-04 10:05] LABS: Add Manual Diff / Slide Review NO; Basophils Absolute Auto 100 /uL (0-100); Basophils Percent Auto 0.8 % (0-2); Eosinophils Absolute Auto 0 /uL (0-450); Eosinophils Percent Auto 0.7 % (2-4); Hematocrit 38.4 % (41-53); Lymphocytes Absolute Auto 1200 /uL (1100-4500); Lymphocytes Percent Auto 19.5 % (25-40); Mean Corpuscular HGB Conc 33.8 % (30-36); Mean Corpuscular Volume 88.9 fL (80-100); Monocytes Absolute Auto 300 /uL (0-900); Monocytes Percent Auto 5.4 % (3-14); Neutrophils Absolute Auto 4600 /uL (1500-7000); Neutrophils Percent Auto 73.6 % (50-75); Platelet Count 167 X10^3/uL (150-400); Red Blood Cell Count 4.32 X10^6/uL (4.5-5.9); Red Cell Distribution Width 13.5 % (11.6-14.8); White Blood Cell Count 6.3 X10^3/uL (4.5-11.0)
[2019-06-04 10:16] LABS: Alanine Aminotransferase 23 IU/L (<50); Albumin 4.5 g/dL (3.5-5.0); Albumin Globulin Ratio 1.6 (1.0-2.8); Alkaline Phosphatase 75 U/L (38-126); Aspartate Aminotransferase 22 IU/L (17-59); BUN Creatinine Ratio 17.3 (6-22); Bilirubin Total 0.4 mg/dL (0.2-1.3); Blood Urea Nitrogen 19 mg/dL (9-20); Calcium 9.3 mg/dL (8.4-10.2); Carbon Dioxide 28 mmol/L (22-32); Chloride 104 mmol/L (98-107); Estimated Glomerular Filt Rate > 60.0 mL/min (>60); Globulin 2.8 g/dL (1.7-4.1); Glucose 260 mg/dL (80-110); HEMOLYSIS < 15 (0-50); Potassium 4.5 mmol/L (3.4-5.1); Sodium 140 mmol/L (137-145); Total Protein 7.3 g/dL (6.3-8.2)
[2019-06-04 10:49] LABS: Carcinoembryonic Antigen 6.7 ng/mL (0.1-3.0)
[2019-06-11 14:51] VITALS: BP 125/81; PULSE 80; RESP 18; TEMP 37; O2SAT 99
--- NOTE | 2019-06-11 15:19 | P.PNONC_ITS ---
PN -Subjective Interval history: Diagnosis: Colon cancer involving the sigmoid colon, T3 N1, MSI stable. Previous treatment: 1. Surgical resection March 2017. 2. Adjuvant chemotherapy with FOLFOX for 12 cycles finishing March 2018. 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 He underwent surgical resection March 13, 2017. One of 7 regional lymph nodes was positive for metastatic disease. Treatment with FOLFOX was initiated 10/09/2017 and finished in [facility]. Since his last visit here, he has been feeling generally well. He has no specific complaints today. His appetite has been good. He denies any nausea or vomiting. He is not having any abdominal pain. He has noted some increase in flatulence. He has also noted occasional blood on the stool. It has been intermittent and not severe. His last colonoscopy was in November. He denies any other changes in his health. TIMELINE: 1) Colorectal Cancer. Stage IIIB (pT3, pN1, M0). Diagnosis: 01/29/2017. Biopsy of the sigmoid mass. Pathology confirming a moderately dif ferentiated adenocarcinoma. MSI stable (intact nuclear expression: MLH1, MSH 2, MSH6, and PMS2). 01/29/2017. Biopsy of left colon polyp at 50 cm. Portions of fragmented colorectal mucosa involved by moderately differentiated adenocarcinoma. 03/13/2017. Pathology confirming a invasive adenocarcinoma in the distal sigmoid colon measuring 37 x 32 x 21 mm. Low grade. Tumor extended through the muscularis propria into the adventitia without extending to the peritoneal surface. Resected margins including the proximal distal and circumferential negative. No LV I seen. No tumor deposit seen. 47 regional lymph nodes were identified 1 positive for disease without extranodal extension. 2) Diabetes, diagnosed ~10 years ago. Currently on Lantus and glipizide. Patient is also on lisinopril. Patient is not aware of any neuropathy, Recent EGFR on 01/30/2017 at >60 ml/min. 3) Hypercholesterolemia. 4) Malignant melanoma: First episode back, ~15 years ago. Second lesion right cheek ~ 5 years ago. Managed, surveillence with dermatology. DVT diagnosed during his chemotherapy. - Patient Self-Reported Symptoms SR Constitution: Weight loss/gain SR eye issues: Vision changes SR ears, nose, mouth, throat issues: Mouth sores SR respiratory issues: Mucous SR Cardiovascular issues: Shortness of breath with activity or lying flat SR Skin issues: Dry skin SR Gastrointestinal issues: Heartburn SR Musculoskeletal issues: Cold hands or feet SR Neuro issues: Numbness or tingling SR Hematologic issues: Bleeding/bruising SR Endocrine issues: Cold intolerance Home Medications and Allergies Home Medications Medication Instructions Recorded Confirmed Type atorvastatin [Lipitor] 10 mg PO QPM #0 01/29/17 06/11/19 History Basaglar KwikPen U-100 Insulin 30 unit SQ QPM #0 05/01/17 06/11/19 History glipizide 5 mg PO BID #0 12/04/17 06/11/19 History acetaminophen 650 mg PO Q6HR PRN #90 tab 05/21/18 06/11/19 Rx olmesartan 20 mg PO DAILY 01/07/19 06/11/19 History Lacto.acidophilus-Bif.animalis 1 cap PO DAILY 06/11/19 06/11/19 History [Probiotic] Allergies Allergy/AdvReac Type Severity Reaction Status Date / Time No Known Drug Allergies Allergy Verified 12/05/18 12:25 Exam Vital signs: Vital Signs Temp Pulse Resp BP Pulse Ox 06/11/19 14:51 98.6 F 80 18 125/81 99 Intake and Output 06/10/19 06/11/19 06/11/19 23:59 07:59 15:59 Other: Weight 93.4 kg Patient Weight 06/11/19 23:59 Weight 93.4 kg - Constitutional positive no acute distress, positive average body habitus - Routine HEENT Exam Head: Present: normocephalic, atraumatic Eye: Present: EOMI, PERRL. Absent: conjunctival icterus, scleral injection ENT: Present: mucous membranes moist, oropharynx clear - Routine Neck Exam Present: supple. Absent: lymphadenopathy, thyromegaly - Routine Respiratory Exam Present: Clear to auscultation bilaterally. Absent: rales, wheezes - Routine Cardiovascular Exam Present: RRR, S1, S2. Absent: murmur - Routine Abdominal Exam Present: soft, normoactive bowel sounds. Absent: tenderness, organomegaly, mass - Routine Extremities Exam Absent: cyanosis, clubbing, edema - Routine Back/Spine Exam Back/Spine: Absent: vertebral tenderness - Routine Skin Exam Present: intact. Absent: cyanosis, erythema - Routine Neurological Exam Present: alert, oriented X3 - Routine Psychiatric Exam Present: normal affect, normal thought process Results - Labs Laboratory Last Values WBC 6.3 X10^3/uL (4.5-11.0) 06/04/19 09:54 RBC 4.32 X10^6/uL (4.5-5.9) L 06/04/19 09:54 Hgb 13.0 g/dL (13.5-17.5) L 06/04/19 09:54 Hct 38.4 % (41-53) L 06/04/19 09:54 MCV 88.9 fL (80-100) 06/04/19 09:54 MCH 30.0 PG (26-34) 06/04/19 09:54 MCHC 33.8 % (30-36) 06/04/19 09:54 RDW 13.5 % (11.6-14.8) 06/04/19 09:54 Plt Count 167 X10^3/uL (150-400) 06/04/19 09:54 Neut % (Auto) 73.6 % (50-75) 06/04/19 09:54 Lymph % (Auto) 19.5 % (25-40) L 06/04/19 09:54 Pope % (Auto) 5.4 % (3-14) 06/04/19 09:54 Eos % (Auto) 0.7 % (2-4) L 06/04/19 09:54 Baso % (Auto) 0.8 % (0-2) 06/04/19 09:54 Neut # (Auto) 4600 /uL (1394-2333) 06/04/19 09:54 Lymph # (Auto) 1200 /uL (4702-7793) 06/04/19 09:54 Pope # (Auto) 300 /uL (0-900) 06/04/19 09:54 Eos # (Auto) 0 /uL (0-450) 06/04/19 09:54 Baso # (Auto) 100 /uL (0-100) 06/04/19 09:54 Sodium 140 mmol/L (137-145) 06/04/19 09:54 Potassium 4.5 mmol/L (3.4-5.1) 06/04/19 09:54 Chloride 104 mmol/L (98-107) 06/04/19 09:54 Carbon Dioxide 28 mmol/L (22-32) 06/04/19 09:54 BUN 19 mg/dL (9-20) 06/04/19 09:54 Creatinine 1.10 mg/dL (0.66-1.25) 06/04/19 09:54 Estimated GFR > 60.0 mL/min (>60) 06/04/19 09:54 BUN/Creatinine Ratio 17.3 (6-22) 06/04/19 09:54 Glucose 260 mg/dL (80-110) H 06/04/19 09:54 Calcium 9.3 mg/dL (8.4-10.2) 06/04/19 09:54 Iron 109 ug/dL (49-181) 01/01/18 08:45 TIBC 380 ug/dL (261-462) 01/01/18 08:45 % Saturation 29 % (20-50) 01/01/18 08:45 Transferrin 297 mg/dL (206-381) 01/01/18 08:45 Ferritin 181.0 ng/mL (17.9-464) 11/20/17 08:14 Total Bilirubin 0.4 mg/dL (0.2-1.3) 06/04/19 09:54 AST 22 IU/L (17-59) 06/04/19 09:54 ALT 23 IU/L (<50) 06/04/19 09:54 Alkaline Phosphatase 75 U/L (38-126) 06/04/19 09:54 Total Protein 7.3 g/dL (6.3-8.2) 06/04/19 09:54 Albumin 4.5 g/dL (3.5-5.0) 06/04/19 09:54 Globulin 2.8 g/dL (1.7-4.1) 06/04/19 09:54 Albumin/Globulin Ratio 1.6 (1.0-2.8) 06/04/19 09:54 Carcinoembryonic Ag 6.7 ng/mL (0.1-3.0) H 06/04/19 09:54 - Imaging Additional studies: Procedures Bypass Sigmoid Colon to Cutaneous, Open Approach (03/13/17) Control Bleeding in Peritoneal Cavity, Open Approach (03/13/17) Excision of Mesenteric Lymphatic, Open Approach, Diagnostic (03/13/17) Insertion of Infusion Device into Superior Vena Cava, Percutaneous Approach (03/13/17) Inspection of Lower Intestinal Tract, Via Natural or Artificial Opening End oscopic (03/13/17) Resection of Rectum, Open Approach (03/13/17) Resection of Sigmoid Colon, Open Approach (03/13/17) Transfusion of Nonautologous Red Blood Cells into Central Vein, Percutaneous Approach (03/13/17) Assessment and Plan (1) Colon cancer Problem details: 68-year-old man with stage III colon cancer. He clinically as well but his CEA has increased somewhat. CT scan 2 months ago did not show any evidence of disease. He is clinically well. He will return to clinic in 3 months for follow-up. If his CEA is still increasing, I think we will need to repeat a scan either CT or a PET. Current visit: No Status: Acute
[2019-09-09 11:14] VITALS: BP 145/80; PULSE 66; RESP 18; TEMP 36.7; O2SAT 98
--- NOTE | 2019-09-09 11:29 | ONC.PN ---
PN -Subjective Interval history: ID/CC: 69 YOM with rectosigmoid junction adenocarcinoma History of Present Illness Gabriel is a 69 year old female. She presented with intermittent BRBPR in 09/2016. Colonoscopy on 01/29/2017 showed a circumferential mass at the distal sigmoid colon extending to the rectosigmoid junction in addition to multiple colon polyps. Biopsy of the rectosigmoid mass confirmed invasive adenocarcinoma, moderately differentiated. The left colon polyp and 50 cm biopsy showed portions of [place] banded colorectal mucosa x3 involved by moderately differentiated adenocarcinoma. MMR sufficient (intact nuclear expression: MLH1, MSH 2, MSH6, and PMS2). The patient was taken to the operating room by Dr. Santino Shabazz on 03/13/2017 and underwent colonic resection in addition to lymph node dissection. Pathology from this procedure identified a 3.7 cm tumor at the distal sigmoid colon just above the peritoneal reflection. This was a low-grade adenocarcinoma which extended through the muscularis propria and into the adventitia without extending to the peritoneal surface. Resection margins were widely negative with the closest margin and 3.8 cm. Lymphovascular invasion was not present. Perineural invasion was also not present. Full T7 regional lymph nodes were evaluated and 1 contained a macro metastasis which extended into the cas capsule but not through it and into the adjacent tissues. Pathology stage ws pT3 pN1a. Postoperatively, patient completed 12 cycles of adjuvant chemotherapy with FOLFOX6 in 03/2018. Of note, patient has a remote history of malignant melanoma status post resection pain. He also has history of DVT diagnosed during his chemotherapy. Interval history: Clinically patient does not have any new signs or symptoms. He denies any nausea vomiting. He denies any abdominal pain diarrhea or constipation. Since March of 2019, his CEA level has been noted to be increasing slowly. Patient presents here today to follow-up on the most recent tumor marker level. During his previous visit with Dr. Crowell, it was discussed with the patient about a repeat imaging studies if the CEA level continues to increase. - Patient Self-Reported Symptoms SR Constitution: Weight loss/gain SR eye issues: Vision changes SR ears, nose, mouth, throat issues: Mouth sores SR respiratory issues: Mucous SR Cardiovascular issues: Shortness of breath with activity or lying flat SR Skin issues: Dry skin SR Gastrointestinal issues: Heartburn SR Musculoskeletal issues: Cold hands or feet SR Neuro issues: Numbness or tingling SR Hematologic issues: Bleeding/bruising SR Endocrine issues: Cold intolerance - Additional ROS All systems PM: reviewed and no additional remarkable complaints except as stated Home Medications and Allergies Home Medications Medication Instructions Recorded Confirmed Type atorvastatin [Lipitor] 10 mg PO QPM #0 01/29/17 09/09/19 History Basaglar DeannikPen U-100 Insulin 30 unit SQ QPM #0 05/01/17 09/09/19 History glipizide 5 mg PO BID #0 12/04/17 09/09/19 History acetaminophen 650 mg PO Q6HR PRN #90 tab 05/21/18 09/09/19 Rx olmesartan 20 mg PO DAILY 01/07/19 09/09/19 History Lacto.acidophilus-Bif.animalis 1 cap PO DAILY 06/11/19 09/09/19 History [Probiotic] Allergies Allergy/AdvReac Type Severity Reaction Status Date / Time No Known Drug Allergies Allergy Verified 12/05/18 12:25 Exam Vital signs: Last Vital Signs Temp 98.1 F 09/09/19 11:14 Pulse 66 09/09/19 11:14 Resp 18 09/09/19 11:14 BP 145/80 H 09/09/19 11:14 Pulse Ox 98 09/09/19 11:14 Narrative: ECOG 1 Gen: WDWN, NAD, pleasant and cooperative. HEENT: NCAT, EOMI, PERRLA, anicteric sclera. Neck: Supple, No palpable thyromegaly or lymphadenopathy. Respiratory: CTAB, no wheezes audible. No JVD Cardiovascular: RRR, S1 and S2 normal, no M/G/R. Abdomen: Soft, NTND, BS normal, no palpable organomegaly Extremities: No LE pitting edema. Lymphatic: no palpable lymph nodes in the neck, axillae, or groins. Neurological: AOx3, CN II-XII grossly intact. No focal motor or sensory deficit. Psychiatric: Normal affect, appropriate mood, no depression, no anxiety. Results - Labs Laboratory Last Values WBC 6.3 X10^3/uL (4.5-11.0) 06/04/19 09:54 RBC 4.32 X10^6/uL (4.5-5.9) L 06/04/19 09:54 Hgb 13.0 g/dL (13.5-17.5) L 06/04/19 09:54 Hct 38.4 % (41-53) L 06/04/19 09:54 MCV 88.9 fL (80-100) 06/04/19 09:54 MCH 30.0 PG (26-34) 06/04/19 09:54 MCHC 33.8 % (30-36) 06/04/19 09:54 RDW 13.5 % (11.6-14.8) 06/04/19 09:54 Plt Count 167 X10^3/uL (150-400) 06/04/19 09:54 Neut % (Auto) 73.6 % (50-75) 06/04/19 09:54 Lymph % (Auto) 19.5 % (25-40) L 06/04/19 09:54 [place] % (Auto) 5.4 % (3-14) 06/04/19 09:54 Eos % (Auto) 0.7 % (2-4) L 06/04/19 09:54 Baso % (Auto) 0.8 % (0-2) 06/04/19 09:54 Neut # (Auto) 4600 /uL (6204-6381) 06/04/19 09:54 Lymph # (Auto) 1200 /uL (5138-4879) 06/04/19 09:54 [place] # (Auto) 300 /uL (0-900) 06/04/19 09:54 Eos # (Auto) 0 /uL (0-450) 06/04/19 09:54 Baso # (Auto) 100 /uL (0-100) 06/04/19 09:54 Sodium 140 mmol/L (137-145) 06/04/19 09:54 Potassium 4.5 mmol/L (3.4-5.1) 06/04/19 09:54 Chloride 104 mmol/L (98-107) 06/04/19 09:54 Carbon Dioxide 28 mmol/L (22-32) 06/04/19 09:54 BUN 19 mg/dL (9-20) 06/04/19 09:54 Creatinine 1.10 mg/dL (0.66-1.25) 06/04/19 09:54 Estimated GFR > 60.0 mL/min (>60) 06/04/19 09:54 BUN/Creatinine Ratio 17.3 (6-22) 06/04/19 09:54 Glucose 260 mg/dL (80-110) H 06/04/19 09:54 Calcium 9.3 mg/dL (8.4-10.2) 06/04/19 09:54 Iron 109 ug/dL (49-181) 01/01/18 08:45 TIBC 380 ug/dL (261-462) 01/01/18 08:45 % Saturation 29 % (20-50) 01/01/18 08:45 Transferrin 297 mg/dL (206-381) 01/01/18 08:45 Ferritin 181.0 ng/mL (17.9-464) 11/20/17 08:14 Total Bilirubin 0.4 mg/dL (0.2-1.3) 06/04/19 09:54 AST 22 IU/L (17-59) 06/04/19 09:54 ALT 23 IU/L (<50) 06/04/19 09:54 Alkaline Phosphatase 75 U/L (38-126) 06/04/19 09:54 Total Protein 7.3 g/dL (6.3-8.2) 06/04/19 09:54 Albumin 4.5 g/dL (3.5-5.0) 06/04/19 09:54 Globulin 2.8 g/dL (1.7-4.1) 06/04/19 09:54 Albumin/Globulin Ratio 1.6 (1.0-2.8) 06/04/19 09:54 Carcinoembryonic Ag 6.7 ng/mL (0.1-3.0) H 06/04/19 09:54 - Imaging Additional studies: Procedures Bypass Sigmoid Colon to Cutaneous, Open Approach (03/13/17) Control Bleeding in Peritoneal Cavity, Open Approach (03/13/17) Excision of Mesenteric Lymphatic, Open Approach, Diagnostic (03/13/17) Insertion of Infusion Device into Superior Vena Cava, Percutaneous Approach (03/13/17) Inspection of Lower Intestinal Tract, Via Natural or Artificial Opening Endoscopic (03/13/17) Resection of Rectum, Open Approach (03/13/17) Resection of Sigmoid Colon, Open Approach (03/13/17) Transfusion of Nonautologous Red Blood Cells into Central Vein, Percutaneous Approach (03/13/17) Assessment and Plan (1) Colon cancer Overview: Gabriel is a 69 year old with rectosigmoid junction adenocarcinoma, pMMR, status post surgical resection on 03/13/2017, followed by adjuvant FOLFOX6 for 12 cycles completed 03/2018. Assessment Today, I reviewed the laboratory tests with the patient. Patient's CEA level has continued the increasing trend. I explained to the patient that the increasing trend indicates possible recurrence or metastasis of the underlying rectosigmoid adenocarcinoma. I would proceed with restaging CT scan of the chest abdomen and pelvis. Plan: CT CAP w/contrast RTC in 2-3 weeks for follow up visit
[2019-09-18 13:09] LABS: Add Manual Diff / Slide Review NO; Basophils Absolute Auto 100 /uL (0-100); Basophils Percent Auto 0.7 % (0-2); Eosinophils Absolute Auto 0 /uL (0-450); Eosinophils Percent Auto 0.5 % (2-4); Hematocrit 38.3 % (41-53); Lymphocytes Absolute Auto 1400 /uL (1100-4500); Lymphocytes Percent Auto 18.1 % (25-40); Mean Corpuscular Hemoglobin 30.4 PG (26-34); Mean Corpuscular Volume 89.5 fL (80-100); Monocytes Absolute Auto 400 /uL (0-900); Monocytes Percent Auto 5.1 % (3-14); Neutrophils Absolute Auto 5900 /uL (1500-7000); Neutrophils Percent Auto 75.6 % (50-75); Platelet Count 197 X10^3/uL (150-400); Red Blood Cell Count 4.27 X10^6/uL (4.5-5.9); Red Cell Distribution Width 13.4 % (11.6-14.8); White Blood Cell Count 7.8 X10^3/uL (4.5-11.0)
[2019-09-18 13:21] LABS: Alanine Aminotransferase 20 IU/L (<50); Albumin 4.7 g/dL (3.5-5.0); Albumin Globulin Ratio 1.5 (1.0-2.8); Alkaline Phosphatase 76 U/L (38-126); Aspartate Aminotransferase 20 IU/L (17-59); BUN Creatinine Ratio 18.3 (6-22); Bilirubin Total 0.5 mg/dL (0.2-1.3); Blood Urea Nitrogen 22 mg/dL (9-20); Calcium 9.8 mg/dL (8.4-10.2); Carbon Dioxide 25 mmol/L (22-32); Chloride 105 mmol/L (98-107); Estimated Glomerular Filt Rate > 60.0 mL/min (>60); Globulin 3.1 g/dL (1.7-4.1); Glucose 238 mg/dL (80-110); HEMOLYSIS < 15 (0-50); Sodium 139 mmol/L (137-145); Total Protein 7.8 g/dL (6.3-8.2)
[2019-09-18 13:51] LABS: Carcinoembryonic Antigen 10.1 ng/mL (0.1-3.0)
--- NOTE | 2019-09-23 11:25 | P.PNONC_ITS ---
PN -Subjective Interval history: ID/CC: 69 YOM with rectosigmoid junction adenocarcinoma History of Present Illness Gabriel is a 69 year old male. He presented with intermittent BRBPR in 09/2016. Colonoscopy on 01/29/2017 showed a circumferential mass at the distal sigmoid colon extending to the rectosigmoid junction in addition to multiple colon polyps. Biopsy of the rectosigmoid mass confirmed invasive adenocarcinoma, moderately differentiated. The left colon polyp and 50 cm biopsy showed portions of fragmented colorectal mucosa involved by moderately differentiated adenocarcinoma. MMR sufficient (intact nuclear expression: MLH1, MSH 2, MSH6, and PMS2). The patient was taken to the operating room by Dr. Santino Shabazz on 03/13/2017 and underwent colonic resection in addition to lymph node dissection. Pathology from this procedure identified a 3.7 cm tumor at the distal sigmoid colon just above the peritoneal reflection. This was a low-grade adenocarcinoma which extended through the muscularis propria and into the adventitia without extending to the peritoneal surface. Resection margins were widely negative with the closest margin and 3.8 cm. Lymphovascular invasion was not present. Perineural invasion was also not present. Full T7 regional lymph nodes were evaluated and 1 contained a macro metastasis which extended into the cas capsule but not through it and into the adjacent tissues. Pathology stage was pT3 pN1a. Postoperatively, patient completed 12 cycles of adjuvant chemotherapy with FOLFOX6 in 03/2018. Of note, patient has a remote history of malignant melanoma status post resection. He also has history of DVT diagnosed during his chemotherapy. Interval history: Clinically patient does not have any new signs or symptoms. He denies any nausea vomiting. He denies any abdominal pain diarrhea or constipation. Since March of 2019, his CEA level has been noted to be increasing slowly. There fore I ordered CT of chest abdomen pelvis to evaluate for possible recurrence or metastasis. Patient underwent the scan on 09/18/2019. The scan showed left presacral enhancing nodule measuring 1.7 cm concerning for residual disease. It also showed right lower lobe pulmonary nodules that are not significantly changed, no focal hepatic lesions, no ascites. There is pancreatic calcifications and dilated pancreatic duct. If clinically indicated MRI of the pancreas would be helpful. - Patient Self-Reported Symptoms SR Constitution: Weight loss/gain SR eye issues: Vision changes SR ears, nose, mouth, throat issues: Mouth sores SR respiratory issues: Mucous SR Cardiovascular issues: Shortness of breath with activity or lying flat SR Skin issues: Dry skin SR Gastrointestinal issues: Heartburn SR Musculoskeletal issues: Cold hands or feet SR Neuro issues: Numbness or tingling SR Hematologic issues: Bleeding/bruising SR Endocrine issues: Cold intolerance - Additional ROS All systems PM: reviewed and no additional remarkable complaints except as stated Home Medications and Allergies Home Medications Medication Instructions Recorded Confirmed Type atorvastatin [Lipitor] 10 mg PO QPM #0 01/29/17 09/23/19 History Basaglar KwikPen U-100 Insulin 30 unit SQ QPM #0 05/01/17 09/23/19 History glipizide 5 mg PO BID #0 12/04/17 09/23/19 History acetaminophen 650 mg PO Q6HR PRN #90 tab 05/21/18 09/23/19 Rx olmesartan 20 mg PO DAILY 01/07/19 09/23/19 History Lacto.acidophilus-Bif.animalis 1 cap PO DAILY 06/11/19 09/23/19 History [Probiotic] Allergies Allergy/AdvReac Type Severity Reaction Status Date / Time No Known Drug Allergies Allergy Verified 12/05/18 12:25 Exam Vital signs: 09/23/19 16:51 Last Vital Signs Temp 98.4 F 09/23/19 11:26 Pulse 81 09/23/19 11:26 Resp 16 09/23/19 11:26 BP 138/75 09/23/19 11:26 Pulse Ox 98 09/09/19 11:14 Narrative: ECOG 1 Gen: WDWN, NAD, pleasant and cooperative. HEENT: NCAT, EOMI, PERRLA, anicteric sclera. Neck: Supple, No palpable thyromegaly or lymphadenopathy. Respiratory: CTAB, no wheezes audible. No JVD Cardiovascular: RRR, S1 and S2 normal, no M/G/R. Abdomen: Soft, NTND, BS normal, no palpable organomegaly Extremities: No LE pitting edema. Lymphatic: no palpable lymph nodes in the neck, axillae, or groins. Neurological: AOx3, CN II-XII grossly intact. No focal motor or sensory deficit. Psychiatric: Normal affect, appropriate mood, no depression, no anxiety. Results - Labs Laboratory Last Values WBC 7.8 X10^3/uL (4.5-11.0) 09/18/19 12:04 RBC 4.27 X10^6/uL (4.5-5.9) L 09/18/19 12:04 Hgb 13.0 g/dL (13.5-17.5) L 09/18/19 12:04 Hct 38.3 % (41-53) L 09/18/19 12:04 MCV 89.5 fL (80-100) 09/18/19 12:04 MCH 30.4 PG (26-34) 09/18/19 12:04 MCHC 34.0 % (30-36) 09/18/19 12:04 RDW 13.4 % (11.6-14.8) 09/18/19 12:04 Plt Count 197 X10^3/uL (150-400) 09/18/19 12:04 Neut % (Auto) 75.6 % (50-75) H 09/18/19 12:04 Lymph % (Auto) 18.1 % (25-40) L 09/18/19 12:04 [place] % (Auto) 5.1 % (3-14) 09/18/19 12:04 Eos % (Auto) 0.5 % (2-4) L 09/18/19 12:04 Baso % (Auto) 0.7 % (0-2) 09/18/19 12:04 Neut # (Auto) 5900 /uL (2396-1013) 09/18/19 12:04 Lymph # (Auto) 1400 /uL (5937-1641) 09/18/19 12:04 [place] # (Auto) 400 /uL (0-900) 09/18/19 12:04 Eos # (Auto) 0 /uL (0-450) 09/18/19 12:04 Baso # (Auto) 100 /uL (0-100) 09/18/19 12:04 Sodium 139 mmol/L (137-145) 09/18/19 12:04 Potassium 5.0 mmol/L (3.4-5.1) 09/18/19 12:04 Chloride 105 mmol/L (98-107) 09/18/19 12:04 Carbon Dioxide 25 mmol/L (22-32) 09/18/19 12:04 BUN 22 mg/dL (9-20) H 09/18/19 12:04 Creatinine 1.20 mg/dL (0.66-1.25) 09/18/19 12:04 Estimated GFR > 60.0 mL/min (>60) 09/18/19 12:04 BUN/Creatinine Ratio 18.3 (6-22) 09/18/19 12:04 Glucose 238 mg/dL (80-110) H 09/18/19 12:04 Calcium 9.8 mg/dL (8.4-10.2) 09/18/19 12:04 Iron 109 ug/dL (49-181) 01/01/18 08:45 TIBC 380 ug/dL (261-462) 01/01/18 08:45 % Saturation 29 % (20-50) 01/01/18 08:45 Transferrin 297 mg/dL (206-381) 01/01/18 08:45 Ferritin 181.0 ng/mL (17.9-464) 11/20/17 08:14 Total Bilirubin 0.5 mg/dL (0.2-1.3) 09/18/19 12:04 AST 20 IU/L (17-59) 09/18/19 12:04 ALT 20 IU/L (<50) 09/18/19 12:04 Alkaline Phosphatase 76 U/L (38-126) 09/18/19 12:04 Total Protein 7.8 g/dL (6.3-8.2) 09/18/19 12:04 Albumin 4.7 g/dL (3.5-5.0) 09/18/19 12:04 Globulin 3.1 g/dL (1.7-4.1) 09/18/19 12:04 Albumin/Globulin Ratio 1.5 (1.0-2.8) 09/18/19 12:04 Carcinoembryonic Ag 10.1 ng/mL (0.1-3.0) H 09/18/19 12:04 - Imaging Additional studies: Procedures Bypass Sigmoid Colon to Cutaneous, Open Approach (03/13/17) Control Bleeding in Peritoneal Cavity, Open Approach (03/13/17) Excision of Mesenteric Lymphatic, Open Approach, Diagnostic (03/13/17) Insertion of Infusion Device into Superior Vena Cava, Percutaneous Approach (03/13/17) Inspection of Lower Intestinal Tract, Via Natural or Artificial Opening Endoscopic (03/13/17) Resection of Rectum, Open Approach (03/13/17) Resection of Sigmoid Colon, Open Approach (03/13/17) Transfusion of Nonautologous Red Blood Cells into Central Vein, Percutaneous Approach (03/13/17) Assessment and Plan (1) Colon cancer Overview: Gabriel is a 69 year old with rectosigmoid junction adenocarcinoma, pMMR, status post surgical resection on 03/13/2017, followed by adjuvant FOLFOX6 for 12 cycles completed 03/2018. Assessment I reviewed the CT scan results with the patient. I pointed out that there is a presacral mass that seems to be increasing in size. Most likely that represents possible recurrence of his known rectosigmoid junctional adenocarcinoma. I recommended that we proceed with PET scan to evaluate if it is hypermetabolic. Patient voiced understanding. Plan: PET scan RTC in 2-3 weeks for follow up visit
[2019-09-23 11:26] VITALS: BP 138/75; PULSE 81; RESP 16; TEMP 36.9
--- NOTE | 2019-09-29 15:31 | ONC.SCHED ---
Faxed urgent order to [facility] for PET/CT scan
--- NOTE | 2019-09-30 12:30 | ONC.SCHED ---
PET scan scheduled for 10/08/19 @ per [facility]
--- NOTE | 2019-10-01 08:26 | ONC.SCHED ---
Per Kendraice @ [facility], patient is scheduled for PET/CT today, 10/01/2019 at 5:30.
--- NOTE | 2019-10-06 15:32 | P.PNONC_ITS ---
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 History of Present Illness Gabriel is a 69 year old male. He presented with intermittent BRBPR in 09/2016. Colonoscopy on 01/29/2017 showed a circumferential mass at the distal sigmoid colon extending to the rectosigmoid junction in addition to multiple colon polyps. Biopsy of the rectosigmoid mass confirmed invasive moderately differentiated adenocarcinoma. The left colon polyp and 50 cm biopsy showed portions of fragmented colorectal mucosa involved by moderately differentiated adenocarcinoma. MMR was proficient (intact nuclear expression: MLH1, MSH 2, MSH6, and PMS2). The patient was taken to the operating room by Dr. Santino Shabazz on 03/13/2017 and underwent colon resection in addition to lymph node dissection. Pathology from this procedure identified a 3.7 cm tumor at the distal sigmoid colon just above the peritoneal reflection. This was a low-grade adenocarcinoma which extended through the muscularis propria and into the adventitia without extending to the peritoneal surface. Resection margins were widely negative with the closest margin 3.8 cm. Lymphovascular invasion was not present. Perineural invasion was also not present. 47 regional lymph nodes were evaluated and 1 contained a macro-metastasis which extended into the cas capsule but not through it and into the adjacent tissues. Pathology stage was pT3 pN1a. Postoperatively, patient completed 12 cycles of adjuvant chemotherapy with FOLFOX6 in 03/2018. Of note, patient has a remote history of malignant melanoma status post resection. He also has history of DVT diagnosed during his chemotherapy. Interval history: Since March of 2019, his CEA level has been increasing slowly. Therefore I ordered CT of chest abdomen pelvis to evaluate for possible recurrence or metastasis. Patient underwent the scan on 09/18/2019. The scan showed left presacral enhancing nodule measuring 1.7 cm concerning for residual disease. It also showed right lower lobe pulmonary nodules that are not significantly changed. There were no focal hepatic lesions, or ascites. There was pancreatic calcifications and dilated pancreatic duct. If clinically indicated MRI of the pancreas would be helpful. On 10/01/2019, patient underwent PET scan. The PET scan showed the left inferior presacral soft tissue nodule was hypermetabolic with maximum SUV 3.5. There was no additional definite lesion elsewhere suggestive of metastasis. Patient presents here today to review the PET scan results. Once again clinically patient does not have any new signs or symptoms. - Patient Self-Reported Symptoms SR Constitution: Weight loss/gain SR eye issues: Vision changes SR ears, nose, mouth, throat issues: Mouth sores SR respiratory issues: Mucous SR Cardiovascular issues: Shortness of breath with activity or lying flat SR Skin issues: Dry skin SR Gastrointestinal issues: Diarrhea SR Musculoskeletal issues: Cold hands or feet SR Neuro issues: Numbness or tingling SR Hematologic issues: Bleeding/bruising SR Endocrine issues: Cold intolerance - Additional ROS All systems PM: reviewed and no additional remarkable complaints except as stated (those mentioned in HPI, Interval History and SR above.) Home Medications and Allergies Home Medications Medication Instructions Recorded Confirmed Type atorvastatin [Lipitor] 10 mg PO QPM #0 01/29/17 10/06/19 History Basaglar KwikPen U-100 Insulin 30 unit SQ QPM #0 05/01/17 10/06/19 History glipizide 5 mg PO BID #0 12/04/17 10/06/19 History acetaminophen 650 mg PO Q6HR PRN #90 tab 05/21/18 10/06/19 Rx olmesartan 20 mg PO DAILY 01/07/19 10/06/19 History Lacto.acidophilus-Bif.animalis 1 cap PO DAILY 06/11/19 10/06/19 History [Probiotic] Allergies Allergy/AdvReac Type Severity Reaction Status Date / Time No Known Drug Allergies Allergy Verified 12/05/18 12:25 Exam Vital signs: Last Vital Signs Temp 98.4 F 09/23/19 11:26 Pulse 81 09/23/19 11:26 Resp 16 09/23/19 11:26 BP 138/75 09/23/19 11:26 Pulse Ox 98 09/09/19 11:14 Narrative: ECOG 1 Gen: WDWN, NAD, pleasant and cooperative. HEENT: NCAT, EOMI, PERRLA, anicteric sclera. Neurological: CN II-XII grossly intact. No focal motor or sensory deficit. Psychiatric: AOx3, Normal affect, appropriate mood, no depression, no anxiety. Results - Labs Laboratory Last Values WBC 7.8 X10^3/uL (4.5-11.0) 09/18/19 12:04 RBC 4.27 X10^6/uL (4.5-5.9) L 09/18/19 12:04 Hgb 13.0 g/dL (13.5-17.5) L 09/18/19 12:04 Hct 38.3 % (41-53) L 09/18/19 12:04 MCV 89.5 fL (80-100) 09/18/19 12:04 MCH 30.4 PG (26-34) 09/18/19 12:04 MCHC 34.0 % (30-36) 09/18/19 12:04 RDW 13.4 % (11.6-14.8) 09/18/19 12:04 Plt Count 197 X10^3/uL (150-400) 09/18/19 12:04 Neut % (Auto) 75.6 % (50-75) H 09/18/19 12:04 Lymph % (Auto) 18.1 % (25-40) L 09/18/19 12:04 Brule % (Auto) 5.1 % (3-14) 09/18/19 12:04 Eos % (Auto) 0.5 % (2-4) L 09/18/19 12:04 Baso % (Auto) 0.7 % (0-2) 09/18/19 12:04 Neut # (Auto) 5900 /uL (4392-1474) 09/18/19 12:04 Lymph # (Auto) 1400 /uL (8658-1513) 09/18/19 12:04 Brule # (Auto) 400 /uL (0-900) 09/18/19 12:04 Eos # (Auto) 0 /uL (0-450) 09/18/19 12:04 Baso # (Auto) 100 /uL (0-100) 09/18/19 12:04 Sodium 139 mmol/L (137-145) 09/18/19 12:04 Potassium 5.0 mmol/L (3.4-5.1) 09/18/19 12:04 Chloride 105 mmol/L (98-107) 09/18/19 12:04 Carbon Dioxide 25 mmol/L (22-32) 09/18/19 12:04 BUN 22 mg/dL (9-20) H 09/18/19 12:04 Creatinine 1.20 mg/dL (0.66-1.25) 09/18/19 12:04 Estimated GFR > 60.0 mL/min (>60) 09/18/19 12:04 BUN/Creatinine Ratio 18.3 (6-22) 09/18/19 12:04 Glucose 238 mg/dL (80-110) H 09/18/19 12:04 Calcium 9.8 mg/dL (8.4-10.2) 09/18/19 12:04 Iron 109 ug/dL (49-181) 01/01/18 08:45 TIBC 380 ug/dL (261-462) 01/01/18 08:45 % Saturation 29 % (20-50) 01/01/18 08:45 Transferrin 297 mg/dL (206-381) 01/01/18 08:45 Ferritin 181.0 ng/mL (17.9-464) 11/20/17 08:14 Total Bilirubin 0.5 mg/dL (0.2-1.3) 09/18/19 12:04 AST 20 IU/L (17-59) 09/18/19 12:04 ALT 20 IU/L (<50) 09/18/19 12:04 Alkaline Phosphatase 76 U/L (38-126) 09/18/19 12:04 Total Protein 7.8 g/dL (6.3-8.2) 09/18/19 12:04 Albumin 4.7 g/dL (3.5-5.0) 09/18/19 12:04 Globulin 3.1 g/dL (1.7-4.1) 09/18/19 12:04 Albumin/Globulin Ratio 1.5 (1.0-2.8) 09/18/19 12:04 Carcinoembryonic Ag 10.1 ng/mL (0.1-3.0) H 09/18/19 12:04 - Imaging Additional studies: Procedures Bypass Sigmoid Colon to Cutaneous, Open Approach (03/13/17) Control Bleeding in Peritoneal Cavity, Open Approach (03/13/17) Excision of Mesenteric Lymphatic, Open Approach, Diagnostic (03/13/17) Insertion of Infusion Device into Superior Vena Cava, Percutaneous Approach (03/13/17) Inspection of Lower Intestinal Tract, Via Natural or Artificial Opening Endoscopic (03/13/17) Resection of Rectum, Open Approach (03/13/17) Resection of Sigmoid Colon, Open Approach (03/13/17) Transfusion of Nonautologous Red Blood Cells into Central Vein, Percutaneous Approach (03/13/17) Assessment and Plan (1) Colon cancer Overview: Gabriel is a 69 year old with rectosigmoid junction adenocarcinoma, pMMR, status post surgical resection on 03/13/2017, Pathology stage was pT3 pN1a. One of 47 lymph nodes was macrostopically postive for metastasis. He then completed adjuvant FOLFOX6 for 12 cycles in 03/2018. Due to rising CEA starting 03/2019, CT CAP on 09/18/2019 showed left presacral enhancing nodule measuring 1.7 cm concerning for residual disease. Assessment Today, I reviewed with the patient the finding of PET CT scan of 10/01/2019. I showed the patient the images on the computer screen. I pointed to the patient where the hypermetabolic presacral nodule is located. It has a SUV of 3.5 and is suspicious for metastasis. I talked with the patient that there is no PET evidence of metastasis in other locations. Given the rising CEA and the PET finding, I think patient has developed local regional recurrence of his known colorectal cancer. I talked with the patient that I think patient will be a good candidate for concurrent chemo-radiotherapy of followed by possible surgical resection and/or adjuvant chemotherapy. I also touched base with him that he may end up with a permanent colostomy bag. However I talked with the patient that I will present this case at our [facility] Tumor Board. I talked with the patient that after the Tumor Board I will touch base with him about the plan. Plan: Tumor Board at [facility] I will call patient after the discussion.
--- NOTE | 2019-10-30 08:59 | PC.NURSE ---
Pt called to get update regarding his case. According to pt, Dr. Fletcher planned to present his case to tumor board and then f/u with pt with update. Per Dr. Fletcher [facility] tumor board rejected case bc pt is not established at their facility. Dr. Fletcher will reach out to radiation oncologist and discuss case provider to provider and update pt on treatment plan. This director underwriter sales updated pt on tumor board status and plan, pt verbalized understanding.
--- NOTE | 2019-11-06 12:19 | ONC.SCHED ---
Scheduled for Radiation Therapy consult with Dr. Hickey on 11/09 @ 12:30.
--- NOTE | 2019-11-13 11:00 | ONC.SCHED ---
Sent referral to Dr. Dillon Monteiro at [facility] for surgical consult.
--- NOTE | 2019-11-20 15:19 | PC.NURSE ---
Pt calling for update on plan of care. This RN spoke with Dr. Fletcher and informed pt that plan is concurrent chemo-radiation. RX for Xeloda waiting for prior auth from insurance. Informed pt of plan. Pt reports that he has appt with radiation therapist on the .
--- NOTE | 2019-11-25 12:03 | PC.NURSE ---
Pt called to update clinic after appt with Surgeon, Dr. Monteiro. Pt reports that Dr. Monteiro believes he can remove tumor w/o need for radiation and concurrent oral chemo. Surgery scheduled for 12/18/2019. Dr. Fletcher aware. RX for Capecitibine placed on hold. Pt will call for f/u post surgery.
--- NOTE | 2019-11-25 13:55 | ONC.SCHED ---
On 11/19, submitted PA for Capecitabine.
--- NOTE | 2019-12-01 12:00 | ONC.SCHED ---
Aníbal Braun @ [facility]: patient is scheduled for surgery on 12/18/19 w/ Dr. Monteiro.
--- NOTE | 2019-12-01 13:30 | ONC.SCHED ---
Per Estella @ [facility] She is working on figuring out how this drug is going to be filled as it is normally filled through [facility], but they do not bill [facility] and this drug should go through [facility] part B. She will call back with an answer within 24 hours.
--- NOTE | 2019-12-02 11:33 | PC.NURSE ---
Per Cara, Prior auth has been completed for Capecitibine; by Estella @ [facility], . RX will need to be faxed to [facility] at [phone]. However at this time, RX is on hold. Per pt, Surgeon Dr. Monteiro believes he will be able to remove tumor w/o need of radiation and concurrent oral chemo. Pt is scheduled for surgery on 12/17, Dr. Fletcher aware.
== END ==
PROVIDERS: Internal Medicine Hematology & Oncology; Nurse Practitioner Gerontology; Family Provider Physician Assistant; PCP Physician Assistant
DX: C19 Malignant neoplasm of rectosigmoid junction (principal); Z86.718 Personal history of other venous thrombosis and embolism
CPT/HCPCS: 36415; 36592; 80053; 82378; 82728; 83540; 83550; 85025; 93971; 96367; 96368; 96375; 96409; 96411; 96413; 96415; 96523; 99213; 99214; J0640; J1100; J1453; J1756; J2405; J9190; J9263; Q0162

== ENCOUNTER → 2019-11-18 12:20 | Outpatient (CLI) | payer MEDICARE, OTHER, SELFPAY ==
[2018-05-14 11:50] VITALS: BMI 28.5
[2019-11-18 13:49] LABS: Hemoglobin A1C% w Est Avg Glu 8.3 % (4.0-6.0)
== END ==
PROVIDERS: PCP Student in an Organized Health Care Education/Training Program; Referring Provider Student in an Organized Health Care Education/Training Program; Visit Provider Student in an Organized Health Care Education/Training Program
DX: E11.9 Type 2 diabetes mellitus without complications (principal)
CPT/HCPCS: 36415; 83036

== ENCOUNTER → 2023-03-12 07:10 | Outpatient (CLI) | payer MEDICARE, OTHER, SELFPAY ==
[2018-05-14 11:50] VITALS: BMI 28.5
[2023-03-12 09:13] LABS: Hemoglobin A1C% w Est Avg Glu 9.9 % (4.0-6.0)
[2023-03-12 09:26] LABS: BUN Creatinine Ratio 19.6 (6-22); Blood Urea Nitrogen 20 mg/dL (9-20); Calcium 8.8 mg/dL (8.4-10.2); Carbon Dioxide 25 mmol/L (22-32); Chloride 105 mmol/L (98-107); Estimated Glomerular Filt Rate > 60 mL/min (>60); Glucose 92 mg/dL (80-110); HEMOLYSIS < 15 (0-50); Potassium 3.7 mmol/L (3.4-5.1); Sodium 140 mmol/L (137-145)
== END ==
PROVIDERS: PCP Student in an Organized Health Care Education/Training Program; Referring Provider Student in an Organized Health Care Education/Training Program; Visit Provider Student in an Organized Health Care Education/Training Program
DX: E11.40 Type 2 diabetes mellitus with diabetic neuropathy, unspecified (principal); Z79.4 Long term (current) use of insulin
CPT/HCPCS: 36415; 80048; 83036